=== PATIENT | female | born 1955 | race Caucasian/White ===

== ENCOUNTER → 2017-04-05 | Outpatient (CLI) | payer BC, OTHER ==
[~2017-04-05] MED LIST: ACHD5005 PO; AGM875T PO; ASPI-983 PO; CEFD300C3 PO; COLE1TAB PO; FAMO-119 PO; FEXO180T84 PO; FEXO1TAB42 PO; HYDR-3062 PO; HYDR12.56; HYDR1TAB PO; LEVO137T2 PO; LEVO137T32 PO; LISI10TA; LVT.1T; METF-380 PO; METO-370 PO; PRAV10TA PO; SERT100T8 PO; SERT25TA5 PO
== END ==
LOC: RAD 13:06
PROVIDERS: ATTEND Family Medicine
DX: Z12.31 Encounter for screening mammogram for malignant neoplasm of breast (principal)
CPT/HCPCS: 77067

== ENCOUNTER → 2017-08-16 | Outpatient (CLI) | payer OTHER ==
--- NOTE | 2017-08-16 17:05 | Diagnostic Imaging Report ---
PROCEDURE: US right lower extremity venous. TECHNIQUE: Multiple real-time grayscale images were obtained over the right lower extremity in various projections. Additional duplex Doppler and color Doppler images were also obtained. INDICATION: Right ankle edema and swelling. FINDINGS: There is normal compression flow and augmentation demonstrated from the right common femoral vein through the popliteal vein. The visualized calf veins are also patent. The peroneal vein could not be visualized. IMPRESSION: No sonographic demonstration of deep venous thrombosis. The peroneal vein could not be visualized within the calf. Dictated by: Dictated on workstation # [id number]
== END ==
LOC: RAD 16:29
PROVIDERS: ATTEND Family Medicine
DX: M25.471 Effusion, right ankle (principal)

== ENCOUNTER → 2018-02-13 | Outpatient (CLI) | payer BC ==
--- NOTE | 2018-02-13 15:14 | Diagnostic Imaging Report ---
PROCEDURE: CT head and maxillofacial without contrast. TECHNIQUE: Multiple contiguous axial images were obtained through the head and facial bones without the use of intravenous contrast. INDICATION: Fall with head and facial injury. CT HEAD: The ventricles and sulci are within normal limits. No sulcal effacement, midline shift or hemorrhage is detected. The cisterns are patent. The visualized paranasal sinuses are clear. IMPRESSION: No acute intracranial process is detected. CT MAXILLOFACIAL: The mandible is intact. The zygomatic arches are intact. Maxillary sinus hudson are intact. No displaced nasal bone fracture is seen. Orbital hudson appear to be intact. Visualized paranasal sinuses are clear. IMPRESSION: No facial bone fracture is detected. Dictated by: Dictated on workstation # [id number]
== END ==
LOC: RAD 13:52
PROVIDERS: ATTEND Nurse Practitioner Family
DX: S09.90XA Unspecified injury of head, initial encounter (principal); S05.11XA Contusion of eyeball and orbital tissues, right eye, initial encounter; R51 Headache; I10 Essential (primary) hypertension; F32.9 Major depressive disorder, single episode, unspecified; W10.1XXA Fall (on)(from) sidewalk curb, initial encounter
CPT/HCPCS: 70450; 70486

== ENCOUNTER → 2018-04-16 | Outpatient (CLI) | payer BC ==
--- NOTE | 2018-04-16 18:11 | Diagnostic Imaging Report ---
INDICATION: Routine screening. COMPARISON: Comparison is made with prior mammograms from 04/05/2017 and 04/04/2016. TECHNIQUE: 2D and 3D bilateral screening mammography was performed with 3D tomosynthesis and computer-aided detection (CAD) system. FINDINGS: Both breasts are primarily involutional. No mass or malignant-appearing microcalcifications are seen. The axillae are unremarkable. IMPRESSION: No mammographic features suspicious for malignancy are identified. ACR BI-RADS Category 1: Negative. Result letter will be mailed to the patient. Note: At least 10% of breast cancer is not imaged by mammography. Dictated by: Dictated on workstation # [id number]
== END ==
LOC: RAD 14:50
PROVIDERS: ATTEND Family Medicine
DX: Z12.31 Encounter for screening mammogram for malignant neoplasm of breast (principal)
CPT/HCPCS: 77067

== ENCOUNTER 2018-09-03 05:35 | Outpatient (CLI) | payer BC ==
[~2018-09-03] VITALS: Ht 162.6 cm; Wt 108.7 kg
[2018-09-03] MEDS ORDERED: AMLO5TAB9 PO (10:30)
[2018-09-03] MEDS ORDERED: SPIR25TA5 PO (10:30)
[2018-09-03] MEDS ORDERED: LEVO125T6 PO (10:30)
== END 2018-09-03 13:15 | disposition home or self-care (01) ==
LOC: PREOP 05:35
PROVIDERS: ATTEND Surgery
DX: Z01.818 Encounter for other preprocedural examination (principal)

== ENCOUNTER 2018-09-10 08:26 | Day surgery (SDC) | payer BC ==
[~2018-09-10] VITALS: Ht 162.6 cm; Wt 108.7 kg
[~2018-09-10 08:26] MED LIST changes: +AMLO5TAB9 PO; +LEVO125T6 PO; +SPIR25TA5 PO
[2018-09-10] MEDS ORDERED: LACTATED RINGERS 1,000 ML IV ONE (08:30)
[2018-09-10] MEDS ORDERED: LACTATED RINGERS 1,000 ML IV STA (08:46)
[2018-09-10 08:49] VITALS: BP 149/94
[2018-09-10] MEDS ORDERED: MIDAZOLAM 2 MG/2 ML (VERSED) VIAL ONE ×2 (09:18→10:11)
[2018-09-10] MEDS ORDERED: PROPOFOL INJECTION 50 ML IV ONE (09:18)
[2018-09-10 10:35] VITALS: BP 169/77
[2018-09-10 11:05] VITALS: BP_SYST 156; BP_SYST 169; BP_DIAS 77; BP_DIAS 86
--- NOTE | 2018-09-10 14:27 | Anesthesia-General Post-Op ---
MAC Patient Condition Mental Status/LOC: Same as Preop Cardiovascular: Satisfactory Nausea/Vomiting: Absent Respiratory: Satisfactory Pain: Controlled Complications: Absent Post Op Complications Complications None Follow Up Care/Instructions Patient Instructions None needed. Anesthesiology Discharge Order Discharge Order Patient is doing well, no complaints, stable vital signs, no apparent adverse anesthesia problems. No complications reported per nursing. KATHY JIN CRNA Sep 10, 2018 14:26
--- NOTE | 2018-09-10 16:50 | OPERATIVE REPORT ---
DATE OF SERVICE: 09/10/2018 PREOPERATIVE DIAGNOSIS: Screening colonoscopy. POSTOPERATIVE DIAGNOSES: Large cecal polyp near the appendiceal orifice, cecal polyp, diverticulosis and sigmoid inflammation. PROCEDURES PERFORMED: Colonoscopy with hot biopsy polypectomy x2 and cold biopsies of sigmoid colon. SURGEON: Roseanna Mariano DO. ANESTHESIA: Per AUTHORIZATION NURSE. ESTIMATED BLOOD LOSS: Scant. COMPLICATIONS: None. INDICATIONS: The patient is a 62-year-old female, due for screening colonoscopy. She understands risks and benefits of procedure and wished to proceed with procedure. Consent was signed and on the chart. DESCRIPTION OF PROCEDURE: The patient was taken to the endoscopy suite, placed in left lateral recumbent position. Timeout was performed. Digital rectal exam was performed. There were no palpable polyps, masses or ulcerations. Scope was inserted in the rectum and advanced all the way down to the cecum with minimal difficulty. Prep was adequate with irrigation and suction. Within the cecum, a larger more flat polyp was present, which hot biopsy polypectomy was performed taking a couple of biopsies and fulgurating it. The scope was then slowly retracted back. A small cecal polyp was present, which hot biopsy polypectomy was performed on it. Scope was then slowly retracted back through the ascending, transverse and descending colon without noting any other pathology. Within the sigmoid colon, moderate amount of diverticulosis was present. Towards the distal portion, there is a circumferential inflammation around it. Cold biopsies were obtained of this area. The bowel wall appears to be slightly edematous with significant inflammation. Scope was then continued to be slowly retracted back to the rectum, where it was also retroflexed noting no other pathology. Scope was returned to its normal position, slowly withdrawn until completely removed. The patient tolerated the procedure well without any complications. She was taken to recovery room in stable condition. RECOMMENDATIONS: The patient recommended a followup with pathology in 2 weeks. We would recommend repeat colonoscopy in three months for reevaluation to make sure one of the cecal polyps was eradicated and follow up on the sigmoid inflammation and await biopsy results. Job ID: [id number] DocumentID: [id number] Dictated Date: 09/10/2018 10:32:37 [place] Worker Date: 09/10/2018 16:50:14 Dictated By: ROSEANNA MARIANO DO
== END 2018-09-10 11:10 | disposition home or self-care (01) ==
LOC: ENDO 08:26
PROVIDERS: ATTEND Surgery
DX: Z12.11 Encounter for screening for malignant neoplasm of colon (principal); D12.0 Benign neoplasm of cecum; K52.9 Noninfective gastroenteritis and colitis, unspecified; K57.30 Diverticulosis of large intestine without perforation or abscess without bleeding; I10 Essential (primary) hypertension; E03.9 Hypothyroidism, unspecified; E66.01 Morbid (severe) obesity due to excess calories; Z68.41 Body mass index [BMI] 40.0-44.9, adult; Z79.899 Other long term (current) drug therapy

== ENCOUNTER 2018-10-03 10:33 | Outpatient (RCR) | payer BC | END 2019-01-01 | disposition home or self-care (01) | LOC: LAB 10:33 | PROVIDERS: ATTEND Surgery | DX: K52.9 Noninfective gastroenteritis and colitis, unspecified (principal) | CPT/HCPCS: 87015; 87045; 87046; 87324; 87328; 87329; 87449; 87899 ==

== ENCOUNTER 2019-01-28 05:48 | Outpatient (CLI) | payer MEDICARE, BC ==
[~2019-01-28] VITALS: Ht 162.6 cm; Wt 110.0 kg
[2019-01-28] MEDS ORDERED: ASPI-586 PO (10:25)
== END 2019-01-28 10:34 | disposition home or self-care (01) ==
LOC: PREOP 05:48
PROVIDERS: ATTEND Surgery
DX: Z01.818 Encounter for other preprocedural examination (principal)

== ENCOUNTER 2019-04-15 05:42 | Outpatient (CLI) | payer BC, MEDICARE ==
[~2019-04-15] VITALS: Ht 162.6 cm; Wt 110.0 kg
[~2019-04-15 05:42] MED LIST changes: +ASPI-586 PO; +CIPR-225 PO; +METR500T PO
== END 2019-04-15 10:59 | disposition home or self-care (01) ==
LOC: PREOP 05:42
PROVIDERS: ATTEND Surgery
DX: Z01.818 Encounter for other preprocedural examination (principal)

== ENCOUNTER → 2019-04-18 | Outpatient (CLI) | payer BC, MEDICARE ==
[~2019-04-18] MED LIST changes: -METO-370 PO; +METO50TA7 PO
--- NOTE | 2019-04-18 17:02 | Diagnostic Imaging Report ---
EXAMINATION: Chest (PA and lateral). CLINICAL INDICATION: 63-year-old female, cough. COMPARISON: October 28, 2015. FINDINGS: There is elevation of the right hemidiaphragm. Stable overall appearance of the cardiomediastinal silhouette. There is no identified pneumothorax. There is no pleural effusion. There is no identified focal airspace consolidation. IMPRESSION: No identified acute cardiopulmonary abnormality. Dictated by: Dictated on workstation # [id number]
--- NOTE | 2019-04-21 09:35 | Diagnostic Imaging Report ---
INDICATION: Routine screening. COMPARISON: 04/16/2018 and 04/05/2017. TECHNIQUE: 2D and 3D bilateral screening mammography was performed with CAD. FINDINGS: Both breasts are primarily involutional. The parenchymal pattern is stable. No mass or malignant appearing microcalcifications are seen. The axillae are unremarkable. IMPRESSION: No mammographic features suspicious for malignancy are identified. ACR BI-RADS Category 1: Negative. Result letter will be mailed to the patient. Note: At least 10% of breast cancer is not imaged by mammography. Dictated by: Dictated on workstation # [id number]
== END ==
LOC: RAD 15:38
PROVIDERS: ATTEND Family Medicine
DX: Z12.31 Encounter for screening mammogram for malignant neoplasm of breast (principal); R05 Cough; R09.89 Other specified symptoms and signs involving the circulatory and respiratory systems
CPT/HCPCS: 71046; 77067

== ENCOUNTER → 2020-04-19 | Outpatient (CLI) | payer MEDICARE, OTHER ==
[~2020-04-19] MED LIST changes: +AMLO-250 PO; -AMLO5TAB9 PO; +ASPI-1238 PO; -ASPI-983 PO
--- NOTE | 2020-04-19 11:41 | Diagnostic Imaging Report ---
Digital mammogram. Indication: Bilateral screening This study was compared to the prior exams of 04/18/2019, 04/16/2018 and 04/05/2017. At this time there are no current complaints. The current study was also evaluated with a Computer Aided Detection (CAD) system. FINDINGS: There is a mild amount of fibroglandular tissue present in both breasts, similar to the prior exam. No primary or secondary sign of malignancy is noted. IMPRESSION: There is no radiographic evidence for malignancy. ACR BI-RADS Category 1: Negative. Result letter will be mailed to the patient. Note: At least 10% of breast cancer is not imaged by mammography. Dictated by: Dictated on workstation # [id number]
== END ==
LOC: RAD 10:45
PROVIDERS: ATTEND Family Medicine
DX: Z12.31 Encounter for screening mammogram for malignant neoplasm of breast (principal)
CPT/HCPCS: 77063; 77067

== ENCOUNTER → 2021-04-20 | Outpatient (CLI) | payer MEDICARE, OTHER ==
[~2021-04-20] MED LIST changes: +SERT-414 PO; -SERT100T8 PO
--- NOTE | 2021-04-20 17:06 | Diagnostic Imaging Report ---
INDICATION: Routine screening. Comparison is made with prior mammogram 04/19/2020 and 04/18/2019. 2-D and 3-D bilateral screening mammography was performed with CAD. Both breasts are primarily involutional. No mass or malignant-appearing microcalcifications are seen. Axillae are unremarkable. IMPRESSION: No mammographic features suspicious for malignancy are identified. BI-RADS Category 1 ACR BI-RADS Category 1: Negative. Result letter will be mailed to the patient. Note: At least 10% of breast cancer is not imaged by mammography. Dictated by: Dictated on workstation # [id number]
== END ==
LOC: RAD 14:45
PROVIDERS: ATTEND Family Medicine
DX: Z12.31 Encounter for screening mammogram for malignant neoplasm of breast (principal)
CPT/HCPCS: 77063; 77067

== ENCOUNTER → 2022-04-21 | Outpatient (CLI) | payer MEDICARE, OTHER ==
--- NOTE | 2022-04-21 18:29 | Diagnostic Imaging Report ---
INDICATION: Routine screening. COMPARISON: Prior mammograms from 04/20/2021 and 04/19/2020. EXAMINATION: 2D and 3D bilateral screening mammography was performed with CAD. The current study was also evaluated with a Computer Aided Detection (CAD) system. FINDINGS: Both breasts are primarily involutional. The parenchymal pattern is stable. No mass or malignant appearing microcalcifications are seen. Axillae are unremarkable. IMPRESSION: No mammographic features suspicious for malignancy are identified. ACR BI-RADS Category 1: Negative. Result letter will be mailed to the patient. Note: At least 10% of breast cancer is not imaged by mammography. Dictated by: Dictated on workstation # [id number]
== END ==
LOC: RAD 14:37
PROVIDERS: ATTEND Nurse Practitioner Family
DX: Z12.31 Encounter for screening mammogram for malignant neoplasm of breast (principal)
CPT/HCPCS: 77063; 77067

== ENCOUNTER 2022-05-25 05:36 | Outpatient (CLI) | payer MEDICARE, OTHER ==
[~2022-05-25] VITALS: Ht 163.8 cm; Wt 104.1 kg
== END 2022-05-25 14:21 | disposition home or self-care (01) ==
LOC: PREOP 05:36
PROVIDERS: ATTEND Surgery
DX: Z01.818 Encounter for other preprocedural examination (principal)

== ENCOUNTER 2022-06-01 08:46 | Inpatient (IN) | payer MEDICARE, OTHER ==
[2022-06-01] VITALS (13 sets, daily range): BP systolic 122–178; BP diastolic 59–94
[~2022-06-01] VITALS: Ht 163.8 cm; Wt 104.1 kg
--- OUTSIDE RECORDS SUMMARY | 2022-06-01 08:51 | XMS REPORT | CCD ---
Author Author Mignon De La Paz D.O. Organization [facility] Address [address] [place] [phone] Phone Care Team Providers Care [employer] Name Role Phone Dory De La Paz D.O., PP Unavailable CCM Unavailable Summary Purpose Interface Exchange Insurance Providers Payer name Policy type / Coverage type Covered alliance party ID Effective Begin Date Effective End Date WPS MEDICARE PART B [place] Blue Cross/Blue Shield [id number] 2019 1000 Unknown [employer] Blue Cross/Blue Shield [id number] Un known Family History Family History data not found Social History Social History Element Codes Description Effective Dates Tobacco history SNOMED CT: 560211007 Never smoker 02/08/2011 Allergies, Adverse Reactions, Alerts Substance Reaction Codes Entered Date Inactivated Date Status * NO KNOWN FOOD ALLERGIES Unknown 08/09/2009 No Inactiv e Date Active _ Unknown 08/09/2009 No Inactive Date Active * NO KNOWN ENVIRONMENTAL ALLERGIES Unknown 08/09/2009 N o Inactive Date Active Problems Condition Codes Effective Dates Condition Status Influenza B ICD-10: J10.1 ICD-9: 487.1 02/06/2022 Active URI, ACUTE ICD-10: J06.9 ICD-9: 465.9 01/06/2019 Active Colitis ICD-10: K52.9 ICD-9: 558.9 04/08/2019 Active Inflamed seborrheic keratosis ICD-10: L82.0 ICD-9: 702.11 09/20/2020 Active Proctitis ICD-10: K62.89 ICD-9: 569.49 10/03/2021 Active Essential (primary) hypertension ICD-10: I10 ICD-9: 401.9 09/04/2017 Active Osteoarthritis of knees, bilateral ICD-10: M17.0 ICD-9: 715.96 06/06/2021 Active Edema ICD-10: R60.9 ICD-9: 782.3 06/06/2021 Active Rectal bleeding ICD-10: K62.5 ICD-9: 569.3 06/06/2021 Active Acute sinusitis ICD-10: J01.90 ICD-9: 461.9 03/29/2021 Active Contact with and (suspected) exposure to covid-19 ICD- 10: Z20.822 ICD-9: V01.79 03/28/2021 Active Encounter for immunization ICD-10: Z23 ICD-9: V03.89 01/14/2020 Active Hypothyroidism, unspecified ICD-10: E03.9 ICD-9: 244.9 07/31/2013 Active Hyperglycemia, unspecified ICD-10: R73.9 ICD-9: 790.29 06/10/2018 Active Cough ICD-10: R05 ICD-9: 786.2 01/06/2019 Active Contact with and (suspected) exposure to potentially h azardous body fluids ICD- 10: Z77.21 ICD-9: V15.85 06/10/2018 Active Localized edema ICD-10: R60.0 ICD-9: 782.3 08/16/2017 Active Other fatigue ICD-10: R53.83 ICD-9: 780.79 06/10/2018 Active Encounter for screening for lipoid disorders ICD-10: Z 13.220 ICD-9: V77.91 05/29/2018 Active Encounter for screening mammogram for malignant neopla sm of breast ICD-10: Z12.31 ICD-9: V76.12 03/09/2014 Active Encounter for general adult medical examination withou t abnormal findings ICD- 10: Z00.00 ICD-9: V70.9 09/04/2017 Active Pain in right knee ICD-10: M25.561 ICD-9: 719.46 08/09/2015 Active Abnormal levels of other serum enzymes ICD-10: R74.8 ICD-9: 790.5 06/08/2016 Active Nonscarring hair loss, unspecified ICD-10: L65.9 ICD-9: 704.00 02/02/2016 Active Dehydration ICD-10: E86.0 ICD-9: 276.51 10/27/2015 Active Fever, unspecified ICD-10: R50.9 ICD-9: 780.60 10/27/2015 Active Urticaria, unspecified ICD-10: L50.9 ICD-9: 708.9 08/15/2013 Active Diarrhea, unspecified ICD-10: R19.7 ICD-9: 787.91 09/18/2012 Active Tinea cruris ICD-10: B35.6 ICD-9: 110.3 08/09/2015 Active CELLULITIS ICD-9: 682.9 12/30/2014 Active FOLLICULITIS ICD-9: 704.8 12/30/2014 Active Elevated liver enzymes ICD-9: 790.5 06/25/2014 Active ROUTINE MEDICAL EXAM ICD-9: V70.0 06/25/2014 Active OTH SCREENING MAMMOGRAM ICD-9: V76.12 03/09/2014 Active SINUSITIS, ACUTE ICD-9: 461.9 02/05/2014 Active Periorbital edema ICD-9: 782.3 02/04/2014 Active PNEUMONIA, ORGANISM ICD-9: 486 02/04/2014 Active COUGH ICD-9: 786.2 08/15/2013 Active URTICARIA ICD-9: 708.9 08/15/2013 Active Changing skin lesion ICD-9: 709.9 07/31/2013 Active DM W/O COMPLICATION TYPE II ICD-9: 250.00 07/31/2013 Acti ve HYPERTENSION ICD-9: 401.9 07/31/2013 Active HYPOTHYROIDISM ICD-9: 244.9 07/31/2013 Active Skin tag ICD-9: 701.9 07/31/2013 Active ABDOMINAL PAIN ICD-9: 789.00 09/18/2012 Active Diarrhea ICD-9: 787.91 09/18/2012 Active Chest pain ICD-9: 786.50 09/13/2012 Active DERMATITIS NOS ICD-9: 692.9 06/06/2012 Active BRONCHITIS, ACUTE ICD-9: 466.0 03/06/2012 Active ARTHRALGIA-MULTIPLE SITES ICD-9: 719.49 01/08/2012 Active Myalgia ICD-9: 729.1 01/08/2012 Active Diverticular disease Unknown 08/09/2009 Active Hypertension Unknown 08/09/2009 Active Hypothryroidism Unknown 08/09/2009 Active Irritable bowel syndrome Unknown 08/09/2009 Active Urticaria Unknown 08/09/2009 Active MALAISE AND FATIGUE ICD-9: 780.79 08/09/2009 Active Medications Medication Codes Instructions Start Date Stop Date Status Fill Instructions Tamiflu 75 mg capsule RxNorm: 134727 Take 1 Capsule(s) Oral two times a day 04/10/2022 04/14/2022 Active spironolactone 100 mg tablet RxNorm: 415041 TAKE 1 TABL ET BY MOUTH EVERY MORNING. REPLACES 25 MG DOSE 03/09/2022 09/04/2022 Active levothyroxine 125 mcg tablet RxNorm: 394032 Take 1 Tablet(s) Oral Q D 03/09/2022 06/06/2022 Active albuterol sulfate 2.5 mg/3 mL (0.083 %) solution for n ebulization RxNorm: 463520 Take 1 Unit Dose Inhalation Q4H as needed 02/06/2022 No Stop Date Active Zithromax Z-Mian 250 mg tablet RxNorm: 245067 Take 2 Tab let(s) Oral QD then 1 daily 02/06/2022 02/10/2022 Inactive Tamiflu 75 mg capsule RxNorm: 218014 Take 1 Capsule(s) Oral two times a day 02/06/2022 02/10/2022 Inactive sertraline 100 mg tablet RxNorm: 586812 Take 1 Tablet(s) Oral QD 06/10/2022 Active amlodipine 5 mg tablet RxNorm: 834633 Take 1 Tablet(s) Oral QD 09/202106/10/2022 Active levothyroxine 125 mcg tablet RxNorm: 598124 Take 1 Tablet(s) Oral Q D 12/12/2021 12/12/2021 Inactive levothyroxine 137 mcg tablet RxNorm: 314352 Take 1 Tablet(s) Oral Q D 09/14/2021 12/12/2021 Inactive spironolactone 100 mg tablet RxNorm: 494086 TAKE 1 TABL ET BY MOUTH EVERY MORNING. REPLACES 25 MG DOSE 09/14/2021 09/14/2021 Inactive spironolactone 100 mg tablet RxNorm: 646626 TAKE 1 TABL ET BY MOUTH EVERY MORNING. REPLACES 25 MG DOSE 09/12/2021 09/12/2021 Inactive levothyroxine 125 mcg tablet RxNorm: 081181 Take 1 Tablet(s) Oral Q D 09/06/2021 09/06/2021 Inactive Patient requests 90 days s upply levothyroxine 125 mcg tablet RxNorm: 560171 Take 1 Tablet(s) Oral Q D 09/05/2021 09/05/2021 Inactive levothyroxine 125 mcg tablet RxNorm: 793940 1 Tablet(s) Oral QD 08/05/2021 Inactive levothyroxine 125 mcg tablet RxNorm: 842817 Take 1 Tablet(s) Oral Q D 08/05/2021 12/11/2021 Inactive Vitamin D3 50 mcg (2,000 unit) capsule RxNorm: 599800 1 Capsule (s) Oral QD 06/20/2021 No Stop Date Active amlodipine 5 mg tablet RxNorm: 299119 Take 1 Tablet(s) Oral QD 06/0706/20/2021 Inactive sertraline 100 mg tablet RxNorm: 778972 Take 1 tablet by mouth once daily 06/20/2021 06/20/2021 Inactive spironolactone 25 mg tablet RxNorm: 030978 1 Tablet(s) Oral two times a day 06/20/2021 06/20/2021 Inactive spironolactone 100 mg tablet RxNorm: 498289 Take 1 Tabl et(s) Oral QAM replaces 25mg dose 06/20/2021 06/20/2021 Inactive levothyroxine 137 mcg tablet RxNorm: 872800 Take 1 Tablet(s) Oral Q D 06/20/2021 08/04/2021 Inactive prednisone 20 mg tablet RxNorm: 398459 Take 1 Tablet(s) Oral two times a day for 1 week then 1 po daily until fwup 06/06/2021 06/19/2021 Inactive albuterol sulfate 1.25 mg/3 mL solution for nebulization RxN orm: 531821 3 Milliliter(s) Inhalation Q4H as needed 03/25/2021 03/25/2021 Inactive spironolactone 25 mg tablet RxNorm: 285792 TAKE 1 TABLE T BY MOUTH IN THE MORNING 01/06/2021 06/19/2021 Inactive sertraline 100 mg tablet RxNorm: 362726 Take 1 tablet by mouth once daily 01/06/2021 04/05/2021 Inactive levothyroxine 137 mcg tablet RxNorm: 327651 Take 1 Tablet(s) Oral Q D 01/06/2021 04/05/2021 Inactive amlodipine 5 mg tablet RxNorm: 915375 Take 1 Tablet(s) Oral QD 12/1004/05/2021 Inactive levothyroxine 137 mcg tablet RxNorm: 772181 Take 1 Tablet(s) Oral Q D 01/06/2021 06/05/2021 Inactive levothyroxine 137 mcg tablet RxNorm: 589902 Take 1 Tablet(s) Oral Q D 10/25/2020 01/05/2021 Inactive spironolactone 25 mg tablet RxNorm: 472754 TAKE 1 TABLE T BY MOUTH IN THE MORNING 10/11/2020 10/11/2020 Inactive amlodipine 5 mg tablet RxNorm: 398085 Take 1 Tablet(s) Oral QD 08/202010/11/2020 Inactive sertraline 100 mg tablet RxNorm: 902684 Take 1 tablet by mouth once daily 10/04/2020 10/04/2020 Inactive levothyroxine 137 mcg tablet RxNorm: 386085 1 Tablet(s) Oral QD 07/27/2020 Inactive levothyroxine 137 mcg tablet RxNorm: 061207 1 Tablet(s) Oral QD 07/26/2020 Inactive spironolactone 25 mg tablet RxNorm: 981380 TAKE 1 TABLE T BY MOUTH IN THE MORNING 07/04/2020 07/04/2020 Inactive Zoloft 100 mg tablet RxNorm: 802974 Take 1 tablet by mouth once daily 07/04/2020 07/04/2020 Inactive levothyroxine 125 mcg tablet RxNorm: 461354 1 Tablet(s) Oral QD 04/25/2020 Inactive levothyroxine 125 mcg tablet RxNorm: 154527 1 Tablet(s) Oral QD Replaces Synthroid 04/26/2020 07/25/2020 Inactive amlodipine 5 mg tablet RxNorm: 950278 TAKE 1 TABLET BY MOUTH ON CE DAILY Oral 04/19/2020 04/19/2020 Inactive Zoloft 100 mg tablet RxNorm: 833058 Take 1 tablet by mouth once daily 04/05/2020 07/03/2020 Inactive spironolactone 25 mg tablet RxNorm: 434194 TAKE 1 TABLE T BY MOUTH IN THE MORNING 04/05/2020 07/03/2020 Inactive mesalamine 1.2 gram tablet,delayed release RxNorm: 698980 2 Tab let(s) Oral QD 01/05/2020 04/13/2020 Inactive amlodipine 5 mg tablet RxNorm: 459291 TAKE 1 TABLET BY MOUTH ON CE DAILY 10/20/2019 04/18/2020 Inactive spironolactone 25 mg tablet RxNorm: 616404 1 Tablet(s) Oral QAM 04/02/2020 Inactive colestipol 1 gram tablet RxNorm: 3620238 1 Tablet(s) Oral QD 201906/05/2021 Inactive Zoloft 100 mg tablet RxNorm: 349826 1 Tablet(s) Oral QD 10/01/2019 Inactive amlodipine 5 mg tablet RxNorm: 379640 TAKE 1 TABLET BY MOUTH ON CE DAILY 04/21/2019 10/19/2019 Inactive Synthroid 125 mcg tablet RxNorm: 071131 1 Tablet(s) Oral QD DAW1 04/25/2020 Inactive spironolactone 25 mg tablet RxNorm: 353176 1 Tablet(s) Oral QAM 10/05/2019 Inactive spironolactone 50 mg tablet RxNorm: 452270 TAKE 1 TABLE T BY MOUTH ONCE DAILY IN THE MORNING 03/30/2019 04/07/2019 Inactive prednisone 10 mg tablet RxNorm: 581650 1 Tablet(s) Oral two brie es a day 01/06/2019 01/09/2019 Inactive albuterol sulfate 1.25 mg/3 mL solution for nebulization RxN orm: 637275 3 Milliliter(s) Inhalation Q4H as needed 01/06/2019 09/19/2020 Inactive Tessalon Perles 100 mg capsule RxNorm: 331393 1 Capsule(s) Oral Q8H as needed 01/06/2019 04/07/2019 Inactive spironolactone 50 mg tablet RxNorm: 948005 TAKE 1 TABLE T BY MOUTH ONCE DAILY IN THE MORNING 12/23/2018 03/29/2019 Inactive spironolactone 50 mg tablet RxNorm: 703206 1 Tablet(s) PO QAM 09/1912/17/2018 Inactive Synthroid 125 mcg tablet RxNorm: 555058 1 Tablet(s) PO QD DAW09/201803/10/2019 Inactive Zoloft 100 mg tablet RxNorm: 563177 1 Tablet(s) PO QD 09/11/201804/2018 Inactive Synthroid 125 mcg tablet RxNorm: 267518 1 Tablet(s) PO QD DAW08/0709/11/2018 Inactive spironolactone 50 mg tablet RxNorm: 149694 1 Tablet(s) PO QAM 07/1009/07/2018 Inactive Synthroid 125 mcg tablet RxNorm: 557764 1 Tablet(s) PO QD 04/201808/18/2018 Inactive oseltamivir 75 mg capsule RxNorm: 730256 1 Capsule(s) PO QD 019 06/19/2018 Inactive spironolactone 50 mg tablet RxNorm: 162161 1 Tablet(s) PO QAM 06/1007/09/2018 Inactive amlodipine 5 mg tablet RxNorm: 076527 1 Tablet(s) PO QD 06/10/2018 Inactive Synthroid 125 mcg tablet RxNorm: 139257 1 Tablet(s) PO QD 07/201807/07/2018 Inactive Synthroid 125 mcg tablet RxNorm: 161000 1 Tablet(s) PO QD 05/1106/09/2018 Inactive Zoloft 100 mg tablet RxNorm: 354136 TAKE 1 TABLET BY MOUTH ONCE DAILY 05/30/2018 04/07/2019 Inactive Zoloft 100 mg tablet RxNorm: 542091 1 Tablet(s) PO QD 05/29/201808/08 Inactive Zoloft 100 mg tablet RxNorm: 966370 TAKE 1 TABLET BY MOUTH ONCE DAILY 02/20/2018 05/28/2018 Inactive potassium chloride ER 20 mEq tablet,extended release RxNorm: 183719 1 Tablet(s) PO TID 11/26/2017 06/09/2018 Inactive potassium chloride ER 20 mEq tablet,extended release RxNorm: 249583 1 Tablet(s) PO QD 11/19/2017 11/25/2017 Inactive Synthroid 125 mcg tablet RxNorm: 687972 1 Tablet(s) PO QD DAW1 10/0704/14/2018 Inactive potassium chloride ER 20 mEq tablet,extended release RxNorm: 659431 1 Tablet(s) PO QD 10/17/2017 10/16/2017 Inactive potassium chloride ER 20 mEq tablet,extended release RxNorm: 435127 1 Tablet(s) PO QD 10/17/2017 11/15/2017 Inactive Synthroid 125 mcg tablet RxNorm: 370380 1 Tablet(s) PO QD DAW NEEDS UPDATED LABS 10/01/2017 10/14/2017 Inactive hydrochlorothiazide 25 mg tablet RxNorm: 510002 1 Table t(s) PO QD replaces lasix and potassium 09/04/2017 06/09/2018 Inactive Toprol XL 50 mg tablet,extended release RxNorm: 348223 1 Tablet (s) PO QD 08/23/2017 06/09/2018 Inactive Synthroid 125 mcg tablet RxNorm: 685091 1 Tablet(s) PO QD DAW1 NEEDS UPDATED LABS 08/23/2017 10/01/2017 Inactive Zoloft 100 mg tablet RxNorm: 838645 1 Tablet(s) PO QD 08/20/201712/2017 Inactive Lasix 40 mg tablet RxNorm: 003727 1 Tablet(s) PO QAM 08/16/201709/03 Inactive potassium chloride ER 20 mEq tablet,extended release RxNorm: 881679 1 Tablet(s) PO QD 08/16/2017 09/03/2017 Inactive Toprol XL 50 mg tablet,extended release RxNorm: 237849 Tablet(s) TAKE ONE TABLET BY MOUTH ONCE DAILY 07/30/2017 08/23/2017 Inactive Toprol XL 50 mg tablet,extended release RxNorm: 755800 TAKE ONE TABLET BY MOUTH ONCE DAILY 06/28/2017 07/30/2017 Inactive Synthroid 125 mcg tablet RxNorm: 748733 1 Tablet(s) PO QD DAW1 05/1008/23/2017 Inactive Synthroid 125 mcg tablet RxNorm: 409974 1 Tablet(s) PO QD DAW04/0905/23/2017 Inactive Synthroid 125 mcg tablet RxNorm: 413309 1 Tablet(s) PO QD DAW08/201604/23/2017 Inactive Toprol XL 50 mg tablet,extended release RxNorm: 347731 1 Tablet (s) PO QD 03/12/2017 06/09/2017 Inactive levothyroxine 125 mcg tablet RxNorm: 069059 1 Tablet(s) PO QD P lease get labs 03/05/2017 03/12/2017 Inactive cancel any refills o n any other strengths Zoloft 100 mg tablet RxNorm: 592038 1 Tablet(s) PO QD 02/05/201707/09 Inactive levothyroxine 125 mcg tablet RxNorm: 046198 1 Tablet(s) PO QD 12/2512/24/2016 Inactive cancel any refills on any ot her strengths levothyroxine 125 mcg tablet RxNorm: 683994 1 Tablet(s) PO QD 12/2503/05/2017 Inactive cancel any refills on any ot her strengths Toprol XL 50 mg tablet,extended release RxNorm: 221976 1 Tablet (s) PO QD 12/05/2016 03/12/2017 Inactive levothyroxine 137 mcg tablet RxNorm: 953011 1 Tablet(s) PO QD 10/1610/15/2016 Inactive levothyroxine 137 mcg tablet RxNorm: 653670 1 Tablet(s) PO QD 10/1612/24/2016 Inactive levothyroxine 150 mcg tablet RxNorm: 790954 1 Tablet(s) PO QD Due for repeat labs 09/06/2016 06/09/2018 Inactive Toprol XL 50 mg tablet,extended release RxNorm: 776261 1 Tablet (s) PO QD 08/29/2016 11/26/2016 Inactive levothyroxine 150 mcg capsule RxNorm: 682158 1 Capsule(s) PO QD 10/15/2016 Inactive Toprol XL 50 mg tablet,extended release RxNorm: 078961 1 Tablet (s) PO QD 05/25/2016 08/29/2016 Inactive levothyroxine 137 mcg tablet RxNorm: 492783 1 Tablet(s) PO QD 05/0507/04/2016 Inactive replaces brand Synthroid 137 mcg Zoloft 100 mg tablet RxNorm: 719462 1 Tablet(s) PO QD 03/21/201601/09 Inactive levothyroxine 137 mcg tablet RxNorm: 031221 1 Tablet(s) PO QD 02/2302/23/2016 Inactive levothyroxine 137 mcg tablet RxNorm: 627657 1 Tablet(s) PO QD 02/2304/23/2016 Inactive replaces brand Synthroid 137 mcg Synthroid 137 mcg tablet RxNorm: 534939 1 Tablet(s) PO QD DAW1- -brand only 02/14/2016 02/23/2016 Inactive Toprol XL 50 mg tablet,extended release RxNorm: 649225 1 Tablet (s) PO QD 02/03/2016 05/02/2016 Inactive Synthroid 137 mcg tablet RxNorm: 105911 1 Tablet(s) PO QD DAW1- -brand only 01/13/2016 02/13/2016 Inactive Zoloft 100 mg tablet RxNorm: 853172 1 Tablet(s) PO QD 12/07/201503/09 Inactive Synthroid 137 mcg tablet RxNorm: 117943 1 Tablet(s) PO QD DAW1- -brand only 11/24/2015 12/23/2015 Inactive Toprol XL 50 mg tablet,extended release RxNorm: 873874 1 Tablet (s) PO QD 10/26/2015 01/23/2016 Inactive Synthroid 137 mcg tablet RxNorm: 970254 1 Tablet(s) PO QD DAW1- -brand only 10/26/2015 11/23/2015 Inactive levothyroxine 137 mcg tablet RxNorm: 178797 1 Tablet(s) PO QD DAW1-Brand Name only 10/26/2015 11/23/2015 Inactive ketoconazole 200 mg tablet RxNorm: 633153 1 Tablet(s) PO QD 016 08/23/2015 Inactive colestipol 1 gram tablet RxNorm: 6526833 1 Tablet(s) PO BID 016 09/08/2015 Inactive nystatin 100,000 unit/gram topical cream RxNorm: 978376 Application TOP BID to rash 08/10/2015 08/09/2016 Inactive levothyroxine 137 mcg tablet RxNorm: 908914 1 Tablet(s) PO QD 07/1910/25/2015 Inactive Toprol XL 50 mg tablet,extended release RxNorm: 757556 1 Tablet (s) PO QD 07/15/2015 10/26/2015 Inactive Zoloft 100 mg tablet RxNorm: 653805 1 Tablet(s) PO QD 05/07/201510/08 Inactive levothyroxine 137 mcg tablet RxNorm: 126354 1 Tablet(s) PO QD 04/0807/19/2015 Inactive prednisone 20 mg tablet RxNorm: 924129 1 Tablet(s) PO BID 01/07/2015 01/06/2015 Inactive prednisone 20 mg tablet RxNorm: 303615 1 Tablet(s) PO BID 01/07/2015 01/13/2015 Inactive Bactroban 2 % topical ointment RxNorm: 473945 Application TOP BID 0 12/31/2014 08/09/2015 Inactive levothyroxine 137 mcg tablet RxNorm: 305496 1 Tablet(s) PO QD 12/3104/08/2015 Inactive Bactrim DS 800 mg-160 mg tablet RxNorm: 033923 1 Tablet(s) PO BID 0 12/31/2014 01/13/2015 Inactive Toprol XL 50 mg tablet,extended release RxNorm: 081326 1 Tablet (s) PO QD 12/11/2014 07/15/2015 Inactive Toprol XL 50 mg tablet,extended release RxNorm: 967261 1 Tablet (s) PO QD 09/01/2014 11/29/2014 Inactive levothyroxine 150 mcg tablet RxNorm: 982086 1 Tablet(s) PO QD 08/0412/30/2014 Inactive levothyroxine 175 mcg tablet RxNorm: 740680 1 Tablet(s) PO QD 07/2412/30/2014 Inactive EpiPen 2-Mian 0.3 mg/0.3 mL (1:1,000) injection,auto-injector RxNorm: 992664 1 Unit Dose IM as needed for severe anaphylactic reaction 06/25/201406/2016 Inactive Toprol XL 50 mg tablet,extended release RxNorm: 870708 1 Tablet (s) PO QD 05/18/2014 09/01/2014 Inactive levothyroxine 150 mcg tablet RxNorm: 882090 1 Tablet(s) PO QD 03/2606/23/2014 Inactive levothyroxine 150 mcg capsule RxNorm: 007526 1 Capsule(s) PO QD 07/201303/25/2014 Inactive levothyroxine 150 mcg capsule RxNorm: 188917 1 Capsule(s) PO QD 07/201303/11/2014 Inactive Zoloft 100 mg tablet RxNorm: 313882 1 Tablet(s) PO QD 03/09/201404/10 Inactive Zoloft 100 mg tablet RxNorm: 382753 1 Tablet(s) PO QD 03/09/201402/09 Inactive prednisone 20 mg tablet RxNorm: 409206 1 Tablet(s) PO BID 02/05/2014 02/09/2014 Inactive doxycycline hyclate 100 mg capsule RxNorm: 841589 1 Capsule(s) PO BID 02/05/2014 02/14/2014 Inactive cefuroxime axetil 500 mg tablet RxNorm: 589379 1 Tablet(s) PO BID 0 11/27/2013 12/06/2013 Inactive Toprol XL 50 mg tablet,extended release RxNorm: 264612 1 Tablet (s) PO QD 11/27/2013 05/18/2014 Inactive Zoloft 100 mg tablet RxNorm: 625333 1 Tablet(s) PO QD 10/27/201304/2013 Inactive hydrochlorothiazide 25 mg tablet RxNorm: 484286 1 Tablet(s) PO QD 0 09/10/2013 06/24/2014 Inactive Bystolic 5 mg tablet RxNorm: 441992 1 Tablet(s) PO QD 09/10/201310/08 Inactive levothyroxine 137 mcg tablet RxNorm: 674808 1 Tablet(s) PO QD 08/2812/28/2013 Inactive hydrochlorothiazide 25 mg tablet RxNorm: 395797 1 Tablet(s) PO QD 0 08/15/2013 09/09/2013 Inactive pravastatin 40 mg tablet RxNorm: 200462 1 Tablet(s) PO QD 07/31/2013 06/24/2014 Inactive levothyroxine 137 mcg tablet RxNorm: 103913 1 Tablet(s) PO QD Needs updated thyroid labs 06/27/2013 07/26/2013 Inactive levothyroxine 137 mcg tablet RxNorm: 288002 1 Tablet(s) PO QD Needs updated thyroid labs 05/06/2013 06/04/2013 Inactive Zoloft 100 mg tablet RxNorm: 819442 1 Tablet(s) PO QD 04/10/201309/09 Inactive levothyroxine 137 mcg tablet RxNorm: 864251 1 Tablet(s) PO QD 02/0605/06/2013 Inactive levothyroxine 137 mcg tablet RxNorm: 436467 1 Tablet(s) PO QD 11/1901/17/2013 Inactive Levothroid 137 mcg tablet RxNorm: 496377 1 Tablet(s) PO QD 11/20/19 13 11/19/2012 Inactive Zoloft 100 mg tablet RxNorm: 917951 1 Tablet(s) PO QD 09/25/201203/09 Inactive Culturelle 10 billion cell capsule RxNorm: 740740 1 Cap fadia(s) PO BID while experincing diarrhea 09/18/2012 09/24/2012 Inactive Zoloft 100 mg tablet RxNorm: 721196 1 Tablet(s) PO QD 06/24/201209/07 Inactive lisinopril-hydrochlorothiazide 10 mg-12.5 mg tablet RxNorm: 471214 1 Tablet(s) PO QD 06/24/2012 08/14/2013 Inactive allopurinol 100 mg tablet RxNorm: 553731 1 Tablet(s) PO QD 06/25/19 13 07/30/2013 Inactive metformin ER 500 mg tablet,extended release 24 hr RxNorm: 86 0975 1 Tablet(s) PO QD for BS 05/07/2012 07/30/2013 Inactive allopurinol 100 mg tablet RxNorm: 319650 1 Tablet(s) PO QD 04/16/19 13 06/14/2012 Inactive Zoloft 100 mg tablet RxNorm: 516517 1 Tablet(s) PO QD 03/20/201203/09 Inactive Zoloft 100 mg tablet RxNorm: 463240 1 Tablet(s) PO QD 03/20/201206/07 Inactive doxycycline hyclate 100 mg capsule RxNorm: 7850777 1 Capsule(s) PO BID 03/06/2012 03/15/2012 Inactive doxycycline hyclate 100 mg capsule RxNorm: 4278429 1 Capsule(s) PO BID 03/06/2012 03/05/2012 Inactive Zoloft 50 mg tablet RxNorm: 498984 1 Tablet(s) PO QD 02/05/201203/19 Inactive Celebrex 200 mg capsule RxNorm: 179687 1 Capsule(s) PO BID for pain--replaces naproxen 02/05/2012 03/05/2012 Inactive metformin ER 500 mg tablet,extended release 24 hr RxNorm: 86 0977 1 Tablet(s) PO QD for BS 02/05/2012 05/07/2012 Inactive allopurinol 100 mg tablet RxNorm: 435951 1 Tablet(s) PO QD 02/05/2004/16/2012 Inactive allopurinol 100 mg tablet RxNorm: 157444 1 Tablet(s) PO QD 01/10/2001/09/2012 Inactive allopurinol 100 mg tablet RxNorm: 813958 1 Tablet(s) PO QD 01/10/2002/04/2012 Inactive levothyroxine 137 mcg tablet RxNorm: 002436 1 Tablet(s) PO QD 01/0902/04/2012 Inactive levothyroxine 137 mcg tablet RxNorm: 036973 1 Tablet(s) PO QD 01/0901/09/2012 Inactive Celebrex 200 mg capsule RxNorm: 169511 1 Capsule(s) PO BID for pain--replaces naproxen 01/08/2012 02/04/2012 Inactive lisinopril-hydrochlorothiazide 10 mg-12.5 mg tablet RxNorm: 067591 1 Tablet(s) PO QD 12/14/2011 06/10/2012 Inactive levothyroxine 125 mcg Tab RxNorm: 758263 1 Tablet(s) PO QD 11/21/1911/20/2011 Inactive levothyroxine 125 mcg Tab RxNorm: 714972 1 Tablet(s) PO QD 11/21/1901/09/2012 Inactive lisinopril-hydrochlorothiazide 10 mg-12.5 mg tablet RxNorm: 928110 1 Tablet(s) PO QD 06/14/2011 12/10/2011 Inactive levothyroxine 112 mcg Tab RxNorm: 362250 1 Tablet(s) PO QAM 011 11/20/2011 Inactive lisinopril-hydrochlorothiazide 10 mg-12.5 mg Tab RxNorm: 197 885 1 Tablet(s) PO QD 09/12/2010 06/14/2011 Inactive levothyroxine 112 mcg Tab RxNorm: 943390 1 Tablet(s) PO QAM 011 02/07/2011 Inactive Zoloft 50 mg Tab RxNorm: 605656 1 Tablet(s) PO QD 05/24/2010 11/20/19 11 Inactive levothyroxine 112 mcg Cap RxNorm: 369649 1 Capsule(s) PO 04/26/2010 0 05/23/2010 Inactive levothyroxine 100 mcg Tab RxNorm: 177639 1 Tablet(s) PO QD 04/25/19 11 04/25/2010 Inactive lisinopril-hydrochlorothiazide 10 mg-12.5 mg Tab RxNorm: 197 885 1 Tablet(s) PO QD 12/06/2009 09/01/2010 Inactive levothyroxine 100 mcg Tab RxNorm: 852129 1 Tablet(s) PO QD 10/26/19 10 04/22/2010 Inactive Vitamin D3 1,000 unit capsule RxNorm: 134903 1 Capsule(s) PO QD 06/24/2014 Inactive levothyroxine 112 mcg Tab RxNorm: 772385 1 Tablet(s) PO QAM 011 05/23/2010 Inactive triamcinolone acetonide 0.1 % Topical Cream RxNorm: 4871407 Appl ication [facility] 07/31/2013 07/30/2013 Inactive colestipol 1 gram tablet RxNorm: 5949644 1 Tablet(s) PO BID 017 08/09/2016 Inactive Zoloft 50 mg tablet RxNorm: 990485 1 Tablet(s) PO QD 02/05/201202/03 Inactive levothyroxine 150 mcg capsule RxNorm: 603389 1 Capsule(s) PO QD 07/04/2016 Inactive Vitamin C ER 1,000 mg tablet,extended release RxNorm: 504569 1 Tablet(s) PO QD 08/10/2015 08/09/2015 Inactive levothyroxine 150 mcg capsule RxNorm: 142335 1 Capsule(s) PO QD 07/201303/11/2014 Inactive Levothyroxine 100 mcg Tab RxNorm: 409589 1 Tablet(s) PO QD 10/26/19 10 10/24/2009 Inactive Synthroid 125 mcg tablet RxNorm: 506902 1 Tablet(s) PO QD 08/201603/12/2017 Inactive Fish Oil 1,000 mg capsule RxNorm: 1 Capsule(s) PO QD 06/25/2014 Inactive FreeStyle Test strips RxNorm: Miscellaneous QD 06/25/2014 06/24/2014 Inactive Sharon Allergy 180 mg tablet RxNorm: 625869 1 Tablet(s) PO QD 08/0708/15/2017 Inactive vitamin E (dl, acetate) 400 unit capsule RxNorm: 507196 1 Capsu le(s) PO QD 08/10/2015 08/09/2015 Inactive metformin 500 mg tablet RxNorm: 348005 1 Tablet(s) PO QD 06/25/2014 0 06/24/2014 Inactive naproxen 500 mg tablet RxNorm: 543879 1 Tablet(s) PO BID as nee ded for pain 01/08/2012 01/07/2012 Inactive ursodiol 300 mg capsule RxNorm: 290769 2 Capsule(s) PO QAM and 3 capsules in the evening (Dr Higgins) 08/10/2016 08/09/2016 Inactive Vitamin B12 1000mcg Tablet RxNorm: 1 Tablet(s) PO QD 05/24/2010 Inactive Toprol XL 50 mg tablet,extended release RxNorm: 202423 1 Tablet (s) PO QD 11/27/2013 11/26/2013 Inactive Calcium with Vitamin D 600 mg (1,500 mg)-400 unit tablet RxN orm: 362332 1 Tablet(s) PO QD 07/31/2013 07/30/2013 Inactive levothyroxine 175 mcg tablet RxNorm: 045317 1 Tablet(s) PO QD 07/2407/23/2014 Inactive Synthroid 137 mcg tablet RxNorm: 893709 1 Tablet(s) PO QD 10/26/2015 10/25/2015 Inactive Pepcid AC 10 mg tablet RxNorm: 541488 1 Tablet(s) PO QD 08/10/2015 Inactive pravastatin 40 mg tablet RxNorm: 190293 1 Tablet(s) PO QD 08/10/2016 08/09/2016 Inactive levothyroxine 137 mcg tablet RxNorm: 411497 1 Tablet(s) PO QD 12/3112/30/2014 Inactive amlodipine 5 mg tablet RxNorm: 468979 1 Tablet(s) PO QD 06/10/2018 Inactive Lisinopril-Hydrochlorothiazide 10 mg-12.5 mg Tab RxNorm: 197 885 1/2 Tablet(s) PO QD 12/06/2009 12/05/2009 Inactive Medication Administered No Medication Administered data Immunizations Vaccine Codes Dose Date Status Covid-19 CVX: 207 03/10/2021 Pneumococcal CVX: 33 0.5 01/19/2021 Complete Pneumococcal CVX: 133 0.5 01/14/2020 Complete Shingrix Unknown 12/18/2017 Shingrix Unknown 10/01/2017 Results Observation Observation Code Item Item Code Result Date S ervice Location COMPREHENSIVE METABOLIC 24528 AST 24 U/L 2012 Unknown COMPREHENSIVE METABOLIC 28854 ALT 39 IU/L 2012 Unknown COMPREHENSIVE METABOLIC 93625 BUN 25 MG/DL 2012 Unknown COMPREHENSIVE METABOLIC 67999 ALBUMIN 4.7 GM/DL 2012 Unknown COMPREHENSIVE METABOLIC 19608 CHLORIDE 101 MMOL/L 09/18 Unknown COMPREHENSIVE METABOLIC 73476 BILI TOT 0.3 MG/DL 2012 Unknown COMPREHENSIVE METABOLIC 93487 ALK PHOS 116 U/L 2012 Unknown COMPREHENSIVE METABOLIC 85377 SODIUM 136 MMOL/L 09/18 Unknown COMPREHENSIVE METABOLIC 59648 CREATININE 1.11 MG/DL 09/07 Unknown COMPREHENSIVE METABOLIC 30683 CALCIUM 9.2 MG/DL 2012 Unknown COMPREHENSIVE METABOLIC 45536 POTASSIUM 3.6 MMOL/L 09/18 Unknown COMPREHENSIVE METABOLIC 81187 PROT TOT 7.2 GM/DL 2012 Unknown COMPREHENSIVE METABOLIC 81437 Glucose 104 MG/DL 2012 Unknown COMPREHENSIVE METABOLIC 97399 BICARB 27 MMOL/L 2012 Unknown COMPREHENSIVE METABOLIC 53374 ANION GAP 8 MEQ/L 2012 Unknown GFR CALC [id number] GFR AA >60 ML/MIN 09/18/2012 Unknown GFR CALC [id number] GFR NON-AA 50.0L ML/MIN 09/18/2012 Unkno wn ERYTHROCYTE SEDIMENTATION RATE 91688 ESR 34 MM/HR 09/18/2012 Unknown COMPLETE BLOOD COUNT [id number] WBC 5.6 10e9/L 09/19/19 13 Unknown COMPLETE BLOOD COUNT [id number] RBC 4.43 10e12/L 2012 Unknown COMPLETE BLOOD COUNT [id number] HGB 13.7 g/dL 3 Unknown COMPLETE BLOOD COUNT [id number] HCT DET 40.1 % 3 Unknown COMPLETE BLOOD COUNT [id number] MCV 90.5 fL 3 Unknown COMPLETE BLOOD COUNT [id number] MCH 30.9 pg 3 Unknown COMPLETE BLOOD COUNT [id number] MCHC 34.2 g/dL 3 Unknown COMPLETE BLOOD COUNT [id number] PLT 275 10e9/L 09/19/19 13 Unknown COMPLETE BLOOD COUNT [id number] MPV 9.8 fL 3 Unknown COMPLETE BLOOD COUNT [id number] WYATT % 61.8 % 3 Unknown COMPLETE BLOOD COUNT [id number] LY % 20.4 % 3 Unknown COMPLETE BLOOD COUNT [id number] MON % 15.6 % 3 Unknown COMPLETE BLOOD COUNT [id number] EOS % 1.8 % 3 Unknown COMPLETE BLOOD COUNT [id number] BASO % 0.4 % 3 Unknown COMPLETE BLOOD COUNT [id number] RDW 13.4 % 3 Unknown COMPLETE BLOOD COUNT [id number] ABS WYATT 3.46 10e9/L 013 Unknown COMPLETE BLOOD COUNT [id number] ABS LYMPH 1.14 10e9/L 013 Unknown COMPLETE BLOOD COUNT [id number] ABS MONO 0.87 10e9/L 013 Unknown COMPLETE BLOOD COUNT [id number] ABS EOS 0.10 10e9/L 013 Unknown COMPLETE BLOOD COUNT [id number] ABS BASO 0.02 10e9/L 013 Unknown COMPLETE BLOOD COUNT [id number] RDW-SD 43.6 fL 3 Unknown Procedures Procedure Codes Date SARSCOV & INF VIR A&B AG IA CPT-4: 95191 04/10/2022 SARSCOV & INF VIR A&B AG IA CPT-4: 56396 02/06/2022 DESTRUCT B9 LESION 1-14 CPT-4: 07536 10/03/2021 THER/PROPH/DIAG INJ SC/IM CPT-4: 02101 03/29/2021 TRIAMCINOLONE ACET INJ NOS CPT-4: J3301 03/29/2021 SARSCOV & INF VIR A&B AG IA CPT-4: 45246 03/28/2021 THER/PROPH/DIAG INJ SC/IM CPT-4: 02698 03/28/2021 METHYLPREDNISOLONE INJECTION CPT-4: J2930 03/28/2021 IMMUNIZATION ADMIN CPT-4: 40000 01/19/2021 PNEUMOCOCCAL VACC 23 IRIS IM CPT-4: 49710 01/19/2021 DESTRUCT B9 LESION 1-14 CPT-4: 45397 01/06/2021 DESTRUCT B9 LESION 1-14 CPT-4: 43835 09/20/2020 ADMIN PNEUMOCOCCAL VACCINE CPT-4: G0009 01/14/2020 PNEUMOCOCCAL VACC 13 IRIS IM CPT-4: 44044 01/14/2020 THER/PROPH/DIAG INJ SC/IM CPT-4: 26532 08/17/2015 TRIAMCINOLONE ACET INJ NOS CPT-4: J3301 08/17/2015 CEFTRIAXONE SODIUM INJECTION CPT-4: J0696 02/05/2014 THER/PROPH/DIAG INJ SC/IM CPT-4: 46631 02/05/2014 CEFTRIAXONE SODIUM INJECTION CPT-4: J0696 02/04/2014 THER/PROPH/DIAG INJ SC/IM CPT-4: 54649 02/04/2014 THER/PROPH/DIAG INJ SC/IM CPT-4: 84522 02/04/2014 METHYLPREDNISOLONE 40 MG INJ CPT-4: J1030 02/04/2014 TRIAMCINOLONE ACET INJ NOS CPT-4: J3301 02/04/2014 THER/PROPH/DIAG INJ SC/IM CPT-4: 68075 08/15/2013 METHYLPREDNISOLONE 40 MG INJ CPT-4: J1030 08/15/2013 TRIAMCINOLONE ACET INJ NOS CPT-4: J3301 08/15/2013 REMOVAL OF SKIN TAGS <W/15 CPT-4: 08910 07/31/2013 Vital Signs Date Vital 04/10/2022 Blood Pressure 1: 132/77 Code: 8480-6 Heart Rate 1: 76 bpm Height: Code: 8302-2 SpO2: 96% Temperature: 36.6 (C) / 97.9 (F) Weight: Code: 03827-2 10/03/2021 Blood Pressure 1: 134/78 Code: 8480-6 Heart Rate 1: 85 bpm Respiratory Rate: 18 bpm SpO2: 96% Temperature: 36.5 (C) / 97.7 (F) We ight: 232 lbs Code: 74099-1 06/20/2021 Blood Pressure 1: 130/80 Code: 8480-6 Heart Rate 1: 80 bpm Respiratory Rate: 19 bpm SpO2: 96% Temperature: 36.3 (C) / 97.3 (F) We ight: 238 lbs Code: 48847-1 06/06/2021 Blood Pressure 1: 132/84 Code: 8480-6 BMI: 39.6 Code: 37754-2 Heart Rate 1: 76 bpm Height: 5'5" Code: 8302-2 Respiratory Rate: 20 bpm SpO2: 97% Temperature: 36.6 (C) / 97.9 (F) Weight: 238 lbs Code: 44898-4 03/29/2021 Blood Pressure 1: 130/78 Code: 8480-6 Heart Rate 1: 80 bpm Respiratory Rate: 20 bpm SpO2: 98% Temperature: 36.7 (C) / 98.1 (F) 03/28/2021 Blood Pressure 1: 132/76 Code: 8480-6 Heart Rate 1: 101 bpm Respiratory Rate: 17 bpm SpO2: 97% Temperature: 36.6 (C) / 97.8 (F) We ight: 240 lbs Code: 28718-1 01/06/2021 Blood Pressure 1: 132/82 Code: 8480-6 Heart Rate 1: 76 bpm Respiratory Rate: 20 bpm SpO2: 98% Temperature: 36.8 (C) / 98.3 (F) We ight: 242 lbs Code: 67896-7 09/20/2020 Blood Pressure 1: 130/84 Code: 8480-6 Heart Rate 1: 68 bpm Respiratory Rate: 20 bpm SpO2: 98% Temperature: 36.9 (C) / 98.4 (F) We ight: 237 lbs Code: 71007-1 04/14/2020 Blood Pressure 1: 130/72 Code: 8480-6 Heart Rate 1: 66 bpm Respiratory Rate: 15 bpm Temperature: 36.6 (C) / 97.9 (F) Weight: 237 lbs Code : 91615-9 01/05/2020 Blood Pressure 1: 132/84 Code: 8480-6 Heart Rate 1: 72 bpm Respiratory Rate: 20 bpm SpO2: 95% Temperature: 36.3 (C) / 97.3 (F) We ight: 238 lbs Code: 10242-1 10/01/2019 Blood Pressure 1: 126/82 Code: 8480-6 Heart Rate 1: 76 bpm Respiratory Rate: 20 bpm SpO2: 95% Temperature: 36.8 (C) / 98.2 (F) We ight: 238 lbs Code: 38672-5 04/08/2019 Blood Pressure 1: 126/84 Code: 8480-6 Heart Rate 1: 88 bpm Respiratory Rate: 20 bpm SpO2: 98% Temperature: 36.9 (C) / 98.5 (F) We ight: 233 lbs Code: 34018-1 01/06/2019 Blood Pressure 1: 132/82 Code: 8480-6 Heart Rate 1: 87 bpm SpO2: 97% Temperature: 36.5 (C) / 97.7 (F) Weight: 232 lbs Code: 71494-1 12/30/2018 Blood Pressure 1: 122/82 Code: 8480-6 Heart Rate 1: 76 bpm Respiratory Rate: 20 bpm SpO2: 96% Temperature: 37.0 (C) / 98.6 (F) We ight: 237 lbs Code: 89865-2 07/08/2018 Blood Pressure 1: 134/86 Code: 8480-6 Heart Rate 1: 72 bpm Respiratory Rate: 20 bpm SpO2: 96% Temperature: 36.8 (C) / 98.2 (F) We ight: 241 lbs Code: 78344-9 06/10/2018 Blood Pressure 1: 142/90 Code: 8480-6 BMI: 40.6 Code: 50210-1 Heart Rate 1: 80 bpm Height: 5'5" Code: 8302-2 Respiratory Rate: 20 bpm SpO2: 96% Temperature: 37.0 (C) / 98.6 (F) Weight: 244 lbs Code: 24923-7 09/04/2017 Blood Pressure 1: 142/86 Code: 8480-6 BMI: 40.1 Code: 42911-3 Heart Rate 1: 76 bpm Height: 5'5" Code: 8302-2 Respiratory Rate: 20 bpm SpO2: 96% Temperature: 36.7 (C) / 98.0 (F) Weight: 241 lbs Code: 76743-3 08/16/2017 Blood Pressure 1: 136/94 Code: 8480-6 Heart Rate 1: 76 bpm Respiratory Rate: 20 bpm SpO2: 94% Temperature: 36.8 (C) / 98.2 (F) We ight: 245 lbs Code: 20103-9 08/10/2016 Blood Pressure 1: 142/92 Code: 8480-6 BMI: 39.8 Code: 26299-6 Heart Rate 1: 72 bpm Height: 5'5" Code: 8302-2 Respiratory Rate: 20 bpm Temperatu re: 36.6 (C) / 97.8 (F) Weight: 239 lbs Code: 57593-9 12/29/2015 Blood Pressure 1: 126/80 Code: 8480-6 Heart Rate 1: 76 bpm Height: Code: 8302-2 Respiratory Rate: 20 bpm Temperature: 36.9 (C) / 98.5 (F) We ight: Code: 12099-8 10/28/2015 Blood Pressure 1: 136/78 Code: 8480-6 Heart Rate 1: 106 bpm Height: Code: 8302-2 Respiratory Rate: 24 bpm SpO2: 92% Temperature: 37 .8 (C) / 100.0 (F) Weight: Code: 74123-0 08/10/2015 Blood Pressure 1: 134/92 Code: 8480-6 Heart Rate 1: 80 bpm Respiratory Rate: 20 bpm Temperature: 36.8 (C) / 98.2 (F) Weight: 244 lbs Code : 06430-0 12/31/2014 Blood Pressure 1: 132/90 Code: 8480-6 BMI: 39.8 Code: 47873-1 Heart Rate 1: 80 bpm Height: 5'5" Code: 8302-2 Respiratory Rate: 20 bpm Temperatu re: 37.0 (C) / 98.6 (F) Weight: 239 lbs Code: 07682-9 06/25/2014 Blood Pressure 1: 126/84 Code: 8480-6 BMI: 40.8 Code: 17006-8 Heart Rate 1: 76 bpm Height: 5'5" Code: 8302-2 Respiratory Rate: 20 bpm Temperatu re: 37.2 (C) / 99.0 (F) Weight: 245 lbs Code: 57302-1 02/05/2014 Blood Pressure 1: 136/86 Code: 8480-6 BMI: 40.6 Code: 45683-9 Heart Rate 1: 80 bpm Height: 5'5" Code: 8302-2 Respiratory Rate: 20 bpm Temperatu re: 36.6 (C) / 97.8 (F) Weight: 244 lbs Code: 72735-4 02/04/2014 Blood Pressure 1: 128/84 Code: 8480-6 BMI: 40.6 Code: 08072-0 Heart Rate 1: 76 bpm Height: 5'5" Code: 8302-2 Respiratory Rate: 20 bpm Temperatu re: 37.4 (C) / 99.3 (F) Weight: 244 lbs Code: 58782-3 11/27/2013 Blood Pressure 1: 122/78 Code: 8480-6 BMI: 40.4 Code: 99411-1 Heart Rate 1: 72 bpm Height: 5'5" Code: 8302-2 Respiratory Rate: 22 bpm Temperatu re: 36.3 (C) / 97.3 (F) Weight: 243 lbs Code: 07105-2 08/15/2013 Blood Pressure 1: 126/84 Code: 8480-6 BMI: 39.9 Code: 15940-5 Heart Rate 1: 68 bpm Height: 5'5" Code: 8302-2 Respiratory Rate: 22 bpm Temperatu re: 35.6 (C) / 96.1 (F) Weight: 240 lbs Code: 22513-6 07/31/2013 Blood Pressure 1: 136/88 Code: 8480-6 BMI: 41.0 Code: 25575-3 Heart Rate 1: 80 bpm Height: 5'4" Code: 8302-2 Respiratory Rate: 20 bpm Temperatu re: 36.9 (C) / 98.4 (F) Weight: 239 lbs Code: 85532-4 09/18/2012 Blood Pressure 1: 122/86 Code: 8480-6 BMI: 38.6 Code: 23405-7 Heart Rate 1: 100 bpm Height: 5'4" Code: 8302-2 Respiratory Rate: 20 bpm Temperatu re: 36.7 (C) / 98.0 (F) Weight: 225 lbs Code: 18796-5 09/13/2012 Blood Pressure 1: 124/78 Code: 8480-6 BMI: 39.5 Code: 29543-8 Heart Rate 1: 68 bpm Height: 5'4" Code: 8302-2 Temperature: 36.3 (C) / 97.4 (F) Weight: 230 lbs Code: 24735-0 06/06/2012 Blood Pressure 1: 116/72 Code: 8480-6 BMI: 38.4 Code: 64988-5 Heart Rate 1: 80 bpm Height: 5'4" Code: 8302-2 Respiratory Rate: 20 bpm Temperatu re: 36.9 (C) / 98.4 (F) Weight: 224 lbs Code: 47878-4 03/06/2012 Blood Pressure 1: 122/70 Code: 8480-6 BMI: 38.4 Code: 94990-6 Heart Rate 1: 84 bpm Height: 5'4" Code: 8302-2 Respiratory Rate: 20 bpm Temperatu re: 36.6 (C) / 97.9 (F) Weight: 224 lbs Code: 52079-2 02/05/2012 Blood Pressure 1: 116/78 Code: 8480-6 BMI: 39.7 Code: 49323-8 Heart Rate 1: 92 bpm Height: 5'4" Code: 8302-2 Respiratory Rate: 20 bpm Temperatu re: 36.7 (C) / 98.0 (F) Weight: 231 lbs Code: 07111-3 01/08/2012 Blood Pressure 1: 116/78 Code: 8480-6 BMI: 39.5 Code: 62411-5 Heart Rate 1: 84 bpm Height: 5'4" Code: 8302-2 Respiratory Rate: 20 bpm Temperatu re: 36.8 (C) / 98.2 (F) Weight: 230 lbs Code: 75983-8 11/15/2011 Blood Pressure 1: 114/78 Code: 8480-6 BMI: 39.1 Code: 97662-3 Heart Rate 1: 88 bpm Height: 5'4" Code: 8302-2 Respiratory Rate: 20 bpm Temperatu re: 36.8 (C) / 98.2 (F) Weight: 228 lbs Code: 04082-6 02/08/2011 Blood Pressure 1: 114/78 Code: 8480-6 BMI: 39.5 Code: 94525-9 Heart Rate 1: 72 bpm Height: 5'4" Code: 8302-2 Respiratory Rate: 20 bpm Temperatu re: 36.7 (C) / 98.0 (F) Weight: 230 lbs Code: 82117-9 05/24/2010 Blood Pressure 1: 106/74 Code: 8480-6 Heart Rate 1: 80 bpm Temperature: 36.6 (C) / 97.8 (F) Weight: 219 lbs Code: 49081-1 08/09/2009 Blood Pressure 1: 116/76 Code: 8480-6 BMI: 37.4 Code: 51355-6 Heart Rate 1: 88 bpm Height: 5'4" Code: 8302-2 Temperature: 36.6 (C) / 97.9 (F) Weight: 218 lbs Code: 18046-0 Functional Status No Functional Status data Reason For Visit Reason For Visit Effective Dates Notes cough 04/10/2022 headache 04/10/2022 sore throat 04/10/2022 sinus congestion 04/10/2022 sinus congestion 02/06/2022 headache 02/06/2022 sore throat 02/06/2022 hoarseness 02/06/2022 diarrhea 10/03/2021 hematochezia 10/03/2021 myalgias 06/20/2021 pain, limb 06/06/2021 cough 03/29/2021 lung recheck sore throat 03/28/2021 sinus congestion 03/28/2021 nasal discharge 03/28/2021 postnasal drip 03/28/2021 cough 03/28/2021 follow up 01/06/2021 high blood pressure 01/06/2021 hypothyroid 01/06/2021 fatigue 01/06/2021 mole check 09/20/2020 lab draw 04/14/2020 hypothyroid 04/14/2020 hyperglycemia 04/14/2020 ~generic 04/14/2020 patient would like d iscussing having mole removed on the left side under arm. injection(s) 01/05/2020 Discuss pneumonia high blood pressure 01/05/2020 follow up 10/01/2019 hypothyroid 10/01/2019 high blood pressure 10/01/2019 hyperglycemia 10/01/2019 diarrhea 10/01/2019 follow up 04/08/2019 high blood pressure 04/08/2019 hypothyroid 04/08/2019 hyperlipidemia 04/08/2019 hyperglycemia 04/08/2019 cough 04/08/2019 cough 01/06/2019 follow up 12/30/2018 high blood pressure 12/30/2018 hypothyroid 12/30/2018 joint complaint 12/30/2018 follow up 07/08/2018 hyperglycemia 07/08/2018 high blood pressure 07/08/2018 hypothyroid 06/10/2018 hair loss 06/10/2018 high blood pressure 06/10/2018 fatigue 06/10/2018 well woman exam (40-65 years) 09/04/2017 Wellness P hysical, patient sees Adrienne Snell for pap smears and is due this summer mole check 09/04/2017 edema 09/04/2017 ecchymosis 09/04/2017 edema 08/16/2017 knee pain 08/10/2016 Elevated Liver Enzymes 08/10/2016 hypothyroid 12/29/2015 fatigue 12/29/2015 hair loss 12/29/2015 fatigue 10/28/2015 hypothyroid 10/28/2015 Patient started on L evothyroxine 137mcg daily-BRAND NAME sinusitis 10/28/2015 anorexia 10/28/2015 hives (urticaria) 08/17/2015 rash 08/10/2015 hives (urticaria) 08/10/2015 diarrhea 08/10/2015 rash 12/31/2014 ~generic 12/31/[address] Rogelio akhtar----she thinks that his diagnosis was cirrohsis of the liver Annual Checkup 06/25/2014 Wellness Physical hives (urticaria) 06/25/2014 hyperlipidemia 06/25/2014 diabetes mellitus 06/25/2014 hypothyroid 06/25/2014 cough 06/25/2014 follow up 02/05/2014 1 day fwup pneumonia 02/05/2014 sinusitis 02/05/2014 eye erythema 02/05/2014 eyelid edema 02/05/2014 cough 02/05/2014 pain, limb 02/04/2014 hoarseness 02/04/2014 eyelid edema 02/04/2014 eye erythema 02/04/2014 sinus congestion 02/04/2014 sinus pain 02/04/2014 high blood pressure 11/27/2013 Needs refill for Met oprolol fatigue 11/27/2013 weight gain/obesity 11/27/2013 vision change 11/27/2013 hives (urticaria) 08/15/2013 Chronic cough 08/15/2013 voice change 08/15/2013 skin lesion 07/31/2013 hypothyroid 07/31/2013 Needs order for Care ATC labs hyperglycemia 07/31/2013 Discuss restarting m etformin diarrhea 09/18/2012 Thinks may have food poisoning again nausea 09/18/2012 diaphoresis 09/18/2012 fever 09/18/2012 myalgias 09/13/2012 chest pain/pressure 09/13/2012 follow up 06/06/2012 3mo fwup arthralgia(s) 06/06/2012 Discuss recent speci alist appt hyperglycemia 06/06/2012 Monitoring BS every couple days cough 06/06/2012 skin lesion 06/06/2012 thumbs peeling follow up 03/06/2012 1mo fwup arthralgia(s) 03/06/2012 hyperglycemia 03/06/2012 cough 03/06/2012 fatigue 03/06/2012 follow up 02/05/2012 1mo fwup arthralgia(s) 02/05/2012 hypothyroid 02/05/2012 currently taking lev othyroxine 137 high blood pressure 02/05/2012 refill lisinopril/HC T depression 02/05/2012 refill zoloft joint complaint 01/08/2012 arthralgia(s) 01/08/2012 high blood pressure 11/15/2011 hypothyroid 11/15/2011 due for labs follow up 02/08/2011 discuss labs hypothyroid 02/08/2011 refill levothyroxine fatigue 02/08/2011 hypothyroid 05/24/2010 currently taking lev othyroxine 112mcg qd, last labs done in February disturbances of emotion 05/24/2010 fatigue 08/09/2009 hx of anemia and hyp othyroidism hypothyroid 08/09/2009 Encounters Encounter Performer Location Location Address Codes Date ([id number]) OFFICE/OUTPATIENT VISIT EST Diagnosis: Influenza B[ICD10: J10.1] Dory WILKESR DO [address] [address] CPT-4: 58711 04/10/2022 ([id number]) OFFICE/OUTPATIENT VISIT EST Diagnosis: URI, ACUTE[ICD10: J06.9] Diagnosis: Influenza B[ICD10: J10.1] Dory STALLINGS NDER DO [address] [address] CPT-4: 17534 02/06/2022 ([id number]) OFFICE/OUTPATIENT VISIT EST Diagnosis: Diarrhea[ICD10: R19.7] Diagnosis: Proctitis[ICD10: K62.89] Diagnosis: Colitis[ICD10: K52.9] Diagnosis: Inflamed seborrheic keratosis[ICD10: L82.0] Dory DE LA PAZ [address] [address] CPT- 4: 75578 10/03/2021 ([id number]) OFFICE/OUTPATIENT VISIT EST Diagnosis: Osteoarthritis of knees, bilateral[ICD10: M17.0] Diagnosis: Essential (primary) hypertension[ICD10: I10] Dory DE LA PAZ [address] [address] CPT- 4: 69762 06/20/2021 ([id number]) OFFICE/OUTPATIENT VISIT EST Diagnosis: Edema[ICD10: R60.9] Diagnosis: Rectal bleeding[ICD10: K62.5] Diagnosis: Osteoarthritis of knees, bilateral[ICD10: M17.0] Dory DE LA PAZ [address] [address] CPT- 4: 98606 06/06/2021 ([id number]) OFFICE/OUTPATIENT VISIT EST Diagnosis: URI, ACUTE[ICD10: J06.9] Diagnosis: Acute sinusitis[ICD10: J01.90] Dory DE LA PAZ [address] [address] CPT-4: 54977 03/29/2021 ([id number]) OFFICE/OUTPATIENT VISIT EST Diagnosis: Contact with and (suspected) exposure to covid-19[ICD10: Z20.822] Diagnosis: Upper respiratory infection[ICD10: J06.9] Mamie DE LA PAZ [address] [address] CPT-4: 99137 03/28/2021 ([id number]) NURSE/OUTPATIENT VISIT EST Diagnosis: Encounter for immunization[ICD10: Z23] Dory Gerardsharlajosh DE LA PAZ [address] [address] CPT-4: 01088 01/19/2021 ([id number]) OFFICE/OUTPATIENT VISIT EST Diagnosis: Essential (primary) hypertension[ICD10: I10] Diagnosis: Hypothyroidism, unspecified[ICD10: E03.9] Diagnosis: Inflamed seborrheic keratosis[ICD10: L82.0] Diagnosis: Colitis[ICD10: K52.9] Dory DE LA PAZ [address] [address] CPT-4: 56218 01/06/2021 ([id number]) OFFICE/OUTPATIENT VISIT EST Diagnosis: Inflamed seborrheic keratosis[ICD10: L82.0] Diagnosis: Colitis[ICD10: K52.9] Dory DE LA PAZ [address] [address] CPT-4: 15517 09/20/2020 ([id number]) OFFICE/OUTPATIENT VISIT EST Diagnosis: Essential (primary) hypertension[ICD10: I10] Diagnosis: Hypothyroidism, unspecified[ICD10: E03.9] Diagnosis: Hyperglycemia, unspecified[ICD10: R73.9] Dory DE LA PAZ [address] [address] CPT- 4: 36858 04/14/2020 ([id number]) NURSE/OUTPATIENT VISIT EST Diagnosis: Encounter for immunization[ICD10: Z23] Dory DE LA PAZ DO [address] [address] CPT-4: 22163 01/14/2020 ([id number]) OFFICE/OUTPATIENT VISIT EST Diagnosis: Essential (primary) hypertension[ICD10: I10] Diagnosis: Colitis[ICD10: K52.9] Dory DE LA PAZ DO [address] [address] CPT-4: 34530 01/05/2020 ([id number]) OFFICE/OUTPATIENT VISIT EST Diagnosis: Essential (primary) hypertension[ICD10: I10] Diagnosis: Diarrhea[ICD10: R19.7] Dory Faustin DO [address] [address] CPT-4: 12311 10/01/2019 ([id number]) OFFICE/OUTPATIENT VISIT EST Diagnosis: Essential (primary) hypertension[ICD10: I10] Diagnosis: Hypothyroidism, unspecified[ICD10: E03.9] Diagnosis: Hyperglycemia, unspecified[ICD10: R73.9] Diagnosis: Cough[ICD10: R05] Diagnosis: Colitis[ICD10: K52.9] Dory DE LA PAZ DO [address] [address] CPT-4: 22603 04/08/2019 ([id number]) OFFICE/OUTPATIENT VISIT EST Diagnosis: Cough[ICD10: R05] Diagnosis: Upper respiratory infection[ICD10: J06.9] Rachel Turnermiguel Lambert STUART DE LA PAZ DO [address] [address] CPT-4: 51676 01/06/2019 ([id number]) OFFICE/OUTPATIENT VISIT EST Diagnosis: Essential (primary) hypertension[ICD10: I10] Diagnosis: Hypothyroidism, unspecified[ICD10: E03.9] Diagnosis: Hyperglycemia, unspecified[ICD10: R73.9] Diagnosis: Diarrhea[ICD10: R19.7] Dory Faustin [address] [address] CPT-4: 48945 12/30/2018 ([id number]) OFFICE/OUTPATIENT VISIT EST Diagnosis: Essential (primary) hypertension[ICD10: I10] Diagnosis: Hyperglycemia, unspecified[ICD10: R73.9] Diagnosis: Hypothyroidism, unspecified[ICD10: E03.9] Dory HOLCOMB AmauriAida JASSI JONES [facility] [address] [place] [address] CPT- 4: 67239 07/08/2018 ([id number]) OFFICE/OUTPATIENT VISIT EST Diagnosis: Essential (primary) hypertension[ICD10: I10] Diagnosis: Localized edema[ICD10: R60.0] Diagnosis: Hypothyroidism, unspecified[ICD10: E03.9] Diagnosis: Other fatigue[ICD10: R53.83] Diagnosis: Hyperglycemia, unspecified[ICD10: R73.9] Diagnosis: Contact with and (suspected) exposure to potentially hazardous body fluids[ICD10: Z77.21] Dory Cates GERARDSHARLAJOSH [facility] [address] [place] [address] CPT-4: 61766 06/10/2018 ([id number]) PREV VISIT EST AGE 40-64 Diagnosis: Encounter for general adult medical examination without abnormal findings[ICD10: Z00.00] Diagnosis: Essential (primary) hypertension[ICD10: I10] Diagnosis: Localized edema[ICD10: R60.0] Dory Cates GERARDRONDA JONES [facility] [address] [place] [address] CPT-4: 82691 09/04/2017 ([id number]) OFFICE/OUTPATIENT VISIT EST Diagnosis: Localized edema[ICD10: R60.0] Dory Cates GERARDSHARLAJOSH JONES [facility] [address] [place] [address] CPT-4: 11759 08/16/2017 ([id number]) OFFICE/OUTPATIENT VISIT EST Diagnosis: Pain in right knee[ICD10: M25.561] Dory Cates GERARDNDER [facility] [address] [place] [phone] CPT-4: 71742 08/10/2016 ([id number]) OFFICE/OUTPATIENT VISIT EST Diagnosis: Other fatigue[ICD10: R53.83] Diagnosis: Hypothyroidism, unspecified[ICD10: E03.9] Dory DE LA PAZ DO [address] [address] CPT- 4: 43502 12/29/2015 ([id number]) NO CHARGE Diagnosis: Dehydration[ICD10: E86.0] Diagnosis: Fever, unspecified[ICD10: R50.9] Dory DE LA PAZ DO [address] [address] CPT-4: 99445 10/28/2015 ([id number]) OFFICE/OUTPATIENT VISIT EST Diagnosis: Urticaria, unspecified[ICD10: L50.9] Dory YINGER [address] [address] CPT-4: 47383 08/17/2015 ([id number]) OFFICE/OUTPATIENT VISIT EST Diagnosis: Tinea cruris[ICD10: B35.6] Diagnosis: Pain in right knee[ICD10: M25.561] Diagnosis: Diarrhea, unspecified[ICD10: R19.7] Dory GARCIAMUSAGissel STALLINGSNDER DO [address] [address] CPT-4: 02594 08/10/2015 ([id number]) OFFICE/OUTPATIENT VISIT EST Diagnosis: CELLULITIS[ICD9: 682.9] Diagnosis: FOLLICULITIS[ICD9: 704.8] Dory STALLINGS NDER DO [address] [address] CPT-4: 95591 12/31/2014 ([id number]) PREV VISIT EST AGE 40-64 Diagnosis: ROUTINE MEDICAL EXAM[ICD9: V70.0] Diagnosis: URTICARIA[ICD9: 708.9] Diagnosis: HYPOTHYROIDISM[ICD9: 244.9] Diagnosis: Elevated liver enzymes[ICD9: 790.5] Dory Oreronda ALMEIDA NAZANIN STALLINGSNDER DO [address] [address] CPT-4: 66181 06/25/2014 ([id number]) OFFICE/OUTPATIENT VISIT EST Diagnosis: SINUSITIS, ACUTE[ICD9: 461.9] Diagnosis: PNEUMONIA, ORGANISM[ICD9: 486] Dory YINGER [address] [address] CPT-4: 29523 02/05/2014 ([id number]) OFFICE/OUTPATIENT VISIT EST Diagnosis: Periorbital edema[ICD9: 782.3] Diagnosis: PNEUMONIA, ORGANISM[ICD9: 486] Dory DE LA PAZ DO [address] [address] CPT-4: 96565 02/04/2014 OFFICE/OUTPATIENT VISIT EST Diagnosis: SINUSITIS, ACUTE[ICD9: 461.9] Diagnosis: URTICARIA[ICD9: 708.9] Diagnosis: HYPERTENSION[ICD9: 401.9] Lashon BOND [address] [address] CPT-4: 45777 11/27/2013 OFFICE/OUTPATIENT VISIT EST Diagnosis: URTICARIA[ICD9: 708.9] Diagnosis: COUGH[ICD9: 786.2] Lashon YINGER [address] [address] CPT-4: 60492 08/16/19 14 ([id number]) OFFICE/OUTPATIENT VISIT EST Diagnosis: HYPOTHYROIDISM[ICD9: 244.9] Diagnosis: HYPERTENSION[ICD9: 401.9] Diagnosis: DM W/O COMPLICATION TYPE II[ICD9: 250.00] Diagnosis: Skin tag[ICD9: 701.9] Diagnosis: Changing skin lesion[ICD9: 709.9] Dorykika De La Paz KRISTOPHER Sheldon YINGER DO [address] [address] CPT-4: 92387 07/31/2013 OFFICE/OUTPATIENT VISIT EST Diagnosis: Diarrhea[ICD9: 787.91] Diagnosis: ABDOMINAL PAIN[ICD9: 789.00] Rossy DE LA PAZ DO [address] [address] CPT-4: 44817 09/18/2012 OFFICE/OUTPATIENT VISIT EST Diagnosis: Chest pain[ICD9: 786.50] Dory BROWN INA DO [address] [address] CPT-4: 43771 09/13/2012 ([id number]) OFFICE/OUTPATIENT VISIT EST Diagnosis: HYPOTHYROIDISM[ICD9: 244.9] Diagnosis: COUGH[ICD9: 786.2] Diagnosis: DERMATITIS NOS[ICD9: 692.9] Dory ZAMARRIPALINE AmauriAida SEYMOUR DO [address] [address] CPT-4: 99057 06/06/2012 ([id number]) OFFICE/OUTPATIENT VISIT EST Diagnosis: HYPOTHYROIDISM[ICD9: 244.9] Diagnosis: DM W/O COMPLICATION TYPE II[ICD9: 250.00] Diagnosis: ARTHRALGIA-MULTIPLE SITES[ICD9: 719.49] Diagnosis: HYPERTENSION[ICD9: 401.9] Diagnosis: BRONCHITIS, ACUTE[ICD9: 466.0] Dory Baugh Aida DEONNAER DO [address] [address] CPT-4: 78869 03/06/2012 ([id number]) OFFICE/OUTPATIENT VISIT EST Diagnosis: HYPOTHYROIDISM[ICD9: 244.9] Diagnosis: ARTHRALGIA-MULTIPLE SITES[ICD9: 719.49] Diagnosis: DM W/O COMPLICATION TYPE II[ICD9: 250.00] Dory YINGER DO [address] [address] CPT- 4: 82279 02/05/2012 OFFICE/OUTPATIENT VISIT EST Diagnosis: ARTHRALGIA-MULTIPLE SITES[ICD9: 719.49] Diagnosis: Myalgia[ICD9: 729.1] Dory ZAMARRIPALINE AmauriAida DEONNAER DO [address] [address] CPT-4: 80882 01/08/20 12 ([id number]) OFFICE/OUTPATIENT VISIT EST Diagnosis: HYPERTENSION[ICD9: 401.9] Diagnosis: HYPOTHYROIDISM[ICD9: 244.9] Dory Cates [facility] [address] [place] [address] CPT-4: 59588 11/15/2011 OFFICE/OUTPATIENT VISIT EST Diagnosis: HYPOTHYROIDISM[ICD9: 244.9] Diagnosis: HYPERTENSION[ICD9: 401.9] Diagnosis: MALAISE AND FATIGUE[ICD9: 780.79] Dory Chung S. [facility] [address] [place] [address] CPT-4: 54751 02/08/2011 ([id number]) OFFICE/OUTPATIENT VISIT EST Dory JACKSON SAida [facility] [address] [place] [address] CPT-4: 63465 05/24/2010 ([id number]) OFFICE/OUTPATIENT VISIT, EST Dory SHEN AmauriAida [facility] DO [facility] [address] [place] [address] CPT-4: 03995 08/09/2009 Plan of Care Planned Activity Notes Codes Status Date Visit Diagnosis Plan: Influenza B Discussion: Tamiflu 75mg po BID for 5 days Supportive care ICD-9 : 487.1 ICD-10 : J10.1 04/10/2022 Patient Education: Tamiflu- OptimizeRX Coupon [id number] 1 https://www.Snapdeal/samplemd/resources/getResource/61/q8nm5n8c-3s93-62k8-q2 Completed 04/10/2022 Visit Diagnosis Plan: Influenza B Discussion: Tamiflu, SVNs with albuterol q4hrs, Z-pack Notify if worsening/persists ICD-9 : 487.1 ICD-10 : J10.1 02/06/2022 Appointment: Dory De La Paz WPtel: [address] [place], [place] [phone] [place] ACUTE ILLNESS 02/06/2022 Patient Education: Tamiflu- OptimizeRX Coupon [id number] 2 https://www.Arcarios.Ezeecube/samplemd/resources/getResource/61/j91228f7-275o-5fe7-xh Completed 02/06/2022 Visit Diagnosis Plan: Inflamed seborrheic keratosis Di scussion: Cryotherapy as above ICD-9 : 702.11 ICD-10 : L82.0 10/03/2021 Visit Diagnosis Plan: Diarrhea Discussion: Referral to Dr. Silver Likely will need updated EGD and colonoscopy ICD-9 : 787.91 ICD-10 : R19.7 10/03/2021 Appointment: Dory De La Paz WPtel: [phone] [phone] [place] FOLLOW UP 10/03/2021 Care Plan: Referral Order SNOMED-CT : 30 5860093 Pending 10/03/2021 Referral: Ezequiel Wang WPtel: [facility] [place] Referral Appointment Confirmed 08/10/2021 Visit Diagnosis Plan: Essential (primary) hypertension Discussion: Stable Will stay at higher dose of spirololactone ICD-9 : 401.9 ICD-10 : I10 06/20/2021 Visit Diagnosis Plan: Osteoarthritis of knees, bilater al Discussion: Due for shots in 1 month ICD-9 : 715.96 ICD-10 : M17.0 06/20/2021 Appointment: Dory De La Paz WPtel: [phone] [phone] [place] FOLLOW UP 06/20/2021 Patient Education: spironolactone- OptimizeRX Coupon 1 [id number] https://www.Arcarios.Ezeecube/samplemd/resources/getResource/61/8u79xx6m-55it-856s-t5 Completed 06/20/2021 Patient Education: levothyroxine- OptimizeRX Coupon 19 [id number] https://www.Arcarios.Ezeecube/samplemd/resources/getResource/61/8u7f5g58-6669-8zb5-u8 Completed 06/20/2021 Patient Education: sertraline- OptimizeRX Coupon 8 https://www.Arcarios.Ezeecube/samplemd/resources/getResource/61/a41hi54p-z233-6506-6i Completed 06/20/2021 Care Plan: Referral Order SNOMED-CT : 30 [id number] Pending 06/20/2021 Visit Diagnosis Plan: Rectal bleeding Discussion: See if prednisone helps Will likely need updated GI appointment since has been 1 1/2 years since last seen ICD-9 : 569.3 ICD-10 : K62.5 06/06/2021 Visit Diagnosis Plan: Edema Discussion: Increase nan nolactone to 100mg po q AM ICD-9 : 782.3 ICD-10 : R60.9 06/06/2021 Visit Diagnosis Plan: Osteoarthritis of knees, bilater al Discussion: Prednisone until fwup in 2 weeks ICD-9 : 715.96 ICD-10 : M17.0 06/06/2021 Appointment: Dory De La Paz WPtel: [facility] [address] ACUTE ILLNESS 06/06/2021 Patient Education: prednisone- OptimizeRX Coupon 7479 https://www.Arcarios.com/samplemd/resources/getResource/61/d7v33u7c-212v-7yf2-44 Completed 06/06/2021 Visit Diagnosis Plan: URI, ACUTE Discussion: Supportiv e care with rest, fluids, humidifier and Notify if worsens Kenalog 40mg IM x1 ICD-9 : 465.9 ICD-10 : J06.9 03/29/2021 Appointment: Dory De La Paz WPtel: [facility] [place] [phone] WORK IN 03/29/2021 Visit Plan: Supportive care. Rest, Fluid s, Tylenol/Motrin prn fever or bodyaches. Notify if worsening symptoms. 03/28/2021 Visit Diagnosis Plan: Upper respiratory infection Disc ussion: SoluMedrol 125 mg IM in office. Supportive care, rest, fluids, tylenol/ibuprofen, cool-mist humidifier, throat lozenges prn. Recommended flonase for allergy symptoms. Return to clinic if no improvement, worsening, or for any concerns. ICD-9 : 465.9 ICD-10 : J06.9 03/28/2021 Visit Diagnosis Plan: Contact with and (suspected) exp osure to covid-19 Discussion: Covid and flu negative ICD-9 : V01.79 ICD-10 : Z20.822 03/28/2021 Appointment: Mam[facility] Low [facility]el[facility] [phone] [facility] AC[facility] I[facility] 03/28/2021 Patient Education: Patient Medication Summary Completed 03/28/2021 Appointment: Dory De La Paz [phone] [phone] [place] Immunizations 01/19/2021 Visit Diagnosis Plan: Colitis Discussion: Following [facility] Dr. Wang ICD-9 : 558.9 ICD-10 : K52.9 01/06/2021 Visit Diagnosis Plan: Inflamed seborrheic keratosis Di scussion: Cryotherapy as above ICD-9 : 702.11 ICD-10 : L82.0 01/06/2021 Visit Diagnosis Plan: Essential (primary) hypertension Discussion: Stable Patient will return on January 13 for Pneumovax 23--she defers flu shot Did discuss COVID booster 6mos after her 2nd dose--will wait to see if Moderna has approval by end january otherwise will look at getting Pfizer Follow Up: 6 months ICD-9 : 401.9 ICD-10 : I10 01/06/2021 Visit Diagnosis Plan: Hypothyroidism, unspecified Disc ussion: Stable Continue current dose and repeat labs in 6mos ICD-9 : 244.9 ICD-10 : E03.9 01/06/2021 Appointment: Dory De La Paz [facility]el[facility] [phone] [facility] [place] FOLLOW UP 01/06/2021 Patient Education: levothyroxine- OptimizeRX Coupon 17 [id number] https://www.Arcarios.Ezeecube/samplenv/resources/getResource/61/5e872jw9-s64r-7397-nk Completed 01/06/2021 Visit Diagnosis Plan: Inflamed seborrheic keratosis Di scussion: Cryotherapy as above ICD-9 : 702.11 ICD-10 : L82.0 09/20/2020 Visit Diagnosis Plan: Colitis Discussion: Discussed re ferral to [facility] ICD-9 : 558.9 ICD-10 : K52.9 09/20/2020 Appointment: Dory De La Paz WPtel: [address] [place], [place] [phone] ACUTE ILLNESS 09/20/2020 Visit Diagnosis Plan: Essential (primary) hypertension Discussion: Stable ICD-9 : 401.9 ICD-10 : I10 04/14/2020 Visit Diagnosis Plan: Hyperglycemia, unspecified Discu ssion: Stable Repeat lab in 6mos ICD-9 : 790.29 ICD-10 : R73.9 04/14/2020 Visit Diagnosis Plan: Hypothyroidism, unspecified Disc ussion: Lab stable ICD-9 : 244.9 ICD-10 : E03.9 04/14/2020 Appointment: Dory De La Paztel: [address] [place], [place] [phone] FOLLOW UP 04/14/2020 Appointment: Dory De La Paztel: [address] [place], [place] [phone] NURSE SERVICES 01/14/2020 Visit Diagnosis Plan: Essential (primary) hypertension Discussion: Stable Will return for prevnar 13 next week Fasting lab in 3mos ICD-9 : 401.9 ICD-10 : I10 01/05/2020 Visit Diagnosis Plan: Colitis Discussion: GI started m esalamine ICD-9 : 558.9 ICD-10 : K52.9 01/05/2020 Appointment: Dory De La Paz WPtel: [address] [place], [place] [phone] ACUTE ILLNESS 01/05/2020 Visit Diagnosis Plan: Diarrhea Discussion: Colestid he aaron Saw Dr. Wang ICD-9 : 787.91 ICD-10 : R19.7 10/01/2019 Visit Diagnosis Plan: Essential (primary) hypertension Discussion: Stable Lab discussed Follow Up: 6 months ICD-9 : 401.9 ICD-10 : I10 10/01/2019 Appointment: Dory De La Paz [facility]Ptel[facility] [phone] [phone] [place] FOLLOW UP 10/01/2019 Patient Education: Zoloft- OptimizeRX Coupon [id number] https://www.Arcarios.Ezeecube/samplemd/resources/getResource/61/8wi7m4sh-83t3-333d-0h Completed 10/01/2019 Appointment: Dory De La Paz [facility]Ptel[facility] [phone] [phone] [place] CANCELED 09/25/2019 Care Plan: RML COMPREHEN METABOLIC PANEL LOINC : 77348-6 Pending 09/18/2019 Care Plan: RML ASSAY OF FREE THYROXINE Pe nding 09/18/2019 Care Plan: RML A1C HPLC LOINC : 75067-1 Pending 09/18/2019 Care Plan: RML COMPLETE CBC W/AUTO DIFF WBC LOINC : 05506-1 Pending 09/18/2019 Visit Diagnosis Plan: Hypothyroidism, unspecified Disc ussion: Continue with current dose and recheck levels in 6mos ICD-9 : 244.9 ICD-10 : E03.9 04/08/2019 Visit Diagnosis Plan: Colitis Discussion: Having repea t colonoscopy in 2 weeks ICD-9 : 558.9 ICD-10 : K52.9 04/08/2019 Visit Diagnosis Plan: Essential (primary) hypertension Discussion: Since has been off spironolactone will restart but at lower dose of 25mg daily and do BP check in 1month and fwup in 6mos ICD-9 : 401.9 ICD-10 : I10 04/08/2019 Visit Diagnosis Plan: Cough Discussion: Check CXR ICD-9 : 786.2 ICD-10 : R05 04/08/2019 Visit Diagnosis Plan: Hyperglycemia, unspecified Discu ssion: Mediterranean diet Combination of cardio and weight bearing exercise Check HbA1C in 6mos ICD-9 : 790.29 ICD-10 : R73.9 04/08/2019 Visit NOS Plan: Plan Notes: Mammogram ordere d 04/08/2019 Appointment: Dory De La Paz WPtel: [phone] [phone] FOLLOW UP 04/08/2019 Patient Education: Synthroid- OptimizeRX Coupon [id number] https://www.Snapdeal/Arcarios/resources/getResource/61/x2202981-6tru-3636-y9 Completed 04/08/2019 Patient Education: spironolactone- OptimizeRX Coupon 9 [id number] https://www.Snapdeal/Arcarios/resources/getResource/61/o51qmok7-0p74-1c79-wc Completed 04/08/2019 Care Plan: MAMMOGRAM SCREENING LOINC : 2 6347-5 Pending 04/08/2019 Care Plan: CHEST X-RAY 2VW FRONTAL&LATL LOINC : 83243-5 Pending 04/08/2019 Visit Diagnosis Plan: Upper respiratory infection Disc ussion: albuterol refilled for patient. tessalon perles prescribed to take as needed and low dose prednisone prescribed to take as directed. instructed to call office with any new or worsening symptoms including fever, dyspnea, etc. ICD-9 : 465.9 ICD-10 : J06.9 01/06/2019 Appointment: Rachel Singleton [address] [place], [place] [address] ACUTE ILLNESS 01/06/2019 Patient Education: albuterol sulfate- OptimizeRX Coupo n [id number] https://www.Arcarios.Ezeecube/Elemental Technologiesmd/resources/getResource/61/yeq8v9m8-6706-3tm5-op Completed 01/06/2019 Patient Education: prednisone- OptimizeRX Coupon [id number] https://www.Snapdeal/Elemental Technologiesmd/resources/getResource/61/sg9qbqa1-388a-5b4a-5c Completed 01/06/2019 Visit Diagnosis Plan: Essential (primary) hypertension Discussion: Stable ICD-9 : 401.9 ICD-10 : I10 12/30/2018 Visit Diagnosis Plan: Hyperglycemia, unspecified Discu ssion: Check HbA1C in [facility] ICD-9 : 790.29 ICD-10 : R73.9 12/30/2018 Visit Diagnosis Plan: Diarrhea Discussion: Sees Dr. Fox this week--may need another colonoscopy ICD-9 : 787.91 ICD-10 : R19.7 12/30/2018 Visit Diagnosis Plan: Hypothyroidism, unspecified Disc ussion: Check thyroid lab in [facility] ICD-9 : 244.9 ICD-10 : E03.9 12/30/2018 Appointment: Dory De La Paz WPtel: [phone] [place] [phone] [place] FOLLOW UP 12/30/2018 Appointment: Dory De La Paz WPtel: [facility] [place] [phone] [place] will call back to reschedule CANCELED 04/2018 Visit Diagnosis Plan: Hypothyroidism, unspecified Disc ussion: Stay on brand synthroid--sent to synthroid direct ICD-9 : 244.9 ICD-10 : E03.9 07/08/2018 Visit Diagnosis Plan: Hyperglycemia, unspecified Discu ssion: Mediterranean diet Combination of cardio and weight bearing exercise Check HbA1C and fwup in 3mos ICD-9 : 790.29 ICD-10 : R73.9 07/08/2018 Visit Diagnosis Plan: Essential (primary) hypertension Discussion: Stable/improved with med change ICD-9 : 401.9 ICD-10 : I10 07/08/2018 Appointment: Dory De La Paz WPtel: [phone] [phone] [place] FOLLOW UP 07/08/2018 Patient Education: Synthroid- OptimizeRX Coupon [id number] https://www.Snapdeal/Arcarios/resources/getResource/61/d3x2823o-xfwc-9y89-3l Completed 07/08/2018 Visit Diagnosis Plan: Localized edema Discussion: Low Na Diet Compression Socks ICD-9 : 782.3 ICD-10 : R60.0 06/10/2018 Visit Diagnosis Plan: Hypothyroidism, unspecified Disc ussion: Stable on current dose ICD-9 : 244.9 ICD-10 : E03.9 06/10/2018 Visit Diagnosis Plan: Essential (primary) hypertension Discussion: Add spironolactone both for BP and swelling Check Chem 7 in 1month then fwup ICD-9 : 401.9 ICD-10 : I10 06/10/2018 Visit Diagnosis Plan: Contact with and ( suspected) exposure to potentially hazardous body fluids Discussion: Tamiflu due to recent flu ex posure ICD-9 : V15.85 ICD-10 : Z77.21 06/10/2018 Visit Diagnosis Plan: Hyperglycemia, unspecified Discu ssion: Mediterranean diet Combination of cardio and weight bearing exercise Check HbA1C in 1 month ICD-9 : 790.29 ICD-10 : R73.9 06/10/2018 Appointment: Dory De La Paz WPtel: [phone] [facility] FOLLOW UP 06/10/2018 Patient Education: spironolactone- OptimizeRX Coupon [id number] Completed 06/10/2018 Patient Education: oseltamivir- OptimizeRX Coupon [id number] Completed 06/10/2018 Patient Education: Synthroid- OptimizeRX Coupon [id number] Completed 06/10/2018 Patient Education: Patient Medication Summary Completed 10/11/2017 Care Plan: RML ASSAY OF FREE THYROXINE Pe nding 10/11/2017 Care Plan: RML ASSAY THYROID STIM HORMONE Pending 10/11/2017 Appointment: Dory De La Paz [facility]Ptel: [phone] [facility] [place] INJECTION 10/01/2017 Patient Education: Patient Medication Summary Completed 10/01/2017 Visit Diagnosis Plan: Encounter for gene [facility] adult medical examination without abnormal findings Discussion: Sees CULLET [facility]USHER this summer Mammo u p to date Update Colonoscopy Recommend Shingrix Start daily Calcium with Vitamin D 500mg/1000u Tdap in 2011 Has full fasting lab in September at work ICD-9 : V70.9 ICD-10 : Z00.00 09/04/2017 Visit Diagnosis Plan: Essential (primary) hypertension Discussion: Change lasix and potassium to HCTZ BP check in couple months when returns to have SK of back removed ICD-9 : 401.9 ICD-10 : I10 09/04/2017 Appointment: Dory De La Paz WPtel: [phone] [phone] Annual Well Visit 09/04/2017 Patient Education: Patient Medication Summary Completed 09/04/2017 Care Plan: Referral Order SNOMED-CT : 30 5853030 Pending 09/04/2017 Appointment: Dory De La Paz WPtel: [phone] [place] [phone] [place] CANCELED 08/28/2017 Visit Diagnosis Plan: Localized edema Discussion: Stat RLE venous doppler If negative will start lasix and potassium and recheck in 1 week Patient understands she will hear from us tonite on results--given sample of eliquis 5mg in case needs to start tonite ICD-9 : 782.3 ICD-10 : R60.0 08/16/2017 Appointment: Dory De La Paz WPtel: [facility] [place] [phone] ACUTE ILLNESS 08/16/2017 Patient Education: Patient Medication Summary Completed 08/16/2017 Patient Education: Patient Medication Summary Completed 03/20/2017 Care Plan: MAMMOGRAM SCREENING LOINC : 2 6347-5 Pending 03/20/2017 Patient Education: Patient Medication Summary Completed 03/12/2017 Care Plan: RML ASSAY OF FREE THYROXINE Pe nding 03/12/2017 Care Plan: RML ASSAY THYROID STIM HORMONE Pending 03/12/2017 Patient Education: Patient Medication Summary Completed 12/18/2016 Care Plan: RML ASSAY THYROID STIM HORMONE Pending 12/18/2016 Care Plan: RML ASSAY OF FREE THYROXINE Pe nding 12/18/2016 Patient Education: Patient Medication Summary Completed 10/13/2016 Care Plan: RML ASSAY OF FREE THYROXINE Pe nding 10/13/2016 Care Plan: RML ASSAY THYROID STIM HORMONE Pending 10/13/2016 Referral: Matt Garrett WPtel: [facility] [address], [facility] 1 [id number] Patient scheduled for 09/06/16 @ 1:30pm- LM for patient Appointment Confirmed 09/06/2016 Visit Diagnosis Plan: Pain in right knee Discussion: R ecommend MRI of right knee and ortho consult ICD-9 : 719.46 ICD-10 : M25.561 08/10/2016 Appointment: Dory De La Paz [facility]Ptel[facility] [phone] [facility] 08/09 confirmed-sp ACUTE ILLNESS 08/10/2016 Patient Education: Patient Medication Summary Completed 08/10/2016 Patient Education: Patient Medication Summary Completed 06/08/2016 Care Plan: RML COMPREHEN METABOLIC PANEL LOINC : 45053-9 Pending 06/08/2016 Care Plan: RML ASSAY THYROID STIM HORMONE Pending 06/08/2016 Care Plan: RML ASSAY OF FREE THYROXINE Pe nding 06/08/2016 Patient Education: Patient Medication Summary Completed 03/15/2016 Care Plan: MAMMOGRAM SCREENING LOINC : 2 6347-5 Pending 03/15/2016 Patient Education: Patient Medication Summary Completed 02/03/2016 Care Plan: RML COMPREHEN METABOLIC PANEL LOINC : 71728-1 Pending 02/03/2016 Care Plan: CBC Pending 02/03/2016 Care Plan: RML VITAMIN B-12 Pending 02/03/2016 Care Plan: ASSAY OF IRON Pending Care Plan: ANTINUCLEAR ANTIBODIES LOINC : 87587-2 Pending 02/03/2016 Visit Plan: Check CBC, TSH, free T4, CMP Discussed may need stress test if labs better and continues with ongoing fatigue Has seen Dr. Higgins and will be following up with him in February for possible liver biopsy 12/29/2015 Appointment: Dory De La Paz [facility]Ptel: [phone] [facility] 12/27 lm~sl 12/28 confirmed~slf FOLLOW UP Patient Education: Patient Medication Summary Completed 12/29/2015 Appointment: Dory De La Paz WPtel: [address] [place], [place] [phone] 11/21 patient was seen earlier~sl RESCHEDULED 11/23/2015 Visit Plan: Direct admit to the hospital 10/28/2015 Appointment: Dory De La Paz WPtel: [address] [place], [place] [phone] ACUTE ILLNESS 10/28/2015 Patient Education: Patient Medication Summary Completed 10/28/2015 Appointment: Dory De La Paz WPtel: [address] [place], [place] [phone] SPECIAL 10/25/2015 Patient Education: Patient Medication Summary Completed 10/21/2015 Care Plan: RML ASSAY THYROID STIM HORMONE Pending 10/21/2015 Care Plan: RML ASSAY OF FREE THYROXINE Pe nding 10/21/2015 Referral: David Higgins WPtel: [address] [place], [place] [phone] Referral Initiated 10/12/2015 Appointment: Dory De La Paz WPtel: [address] [place], [place] [phone] [place] INJECTION 08/17/2015 Patient Education: Patient Medication Summary Completed 08/17/2015 Visit Plan: Topical nystatin and oral ke toconazole--hold pravastatin while on Right leg strengthening exercises Trial of colestipid for diarrhea Discussed need to go back to GI and complete workup including liver biopsy 08/10/2015 Appointment: Dory De La Paz WPtel: [address] [place], [place] [phone] 08/08confirmed ~sl ACUTE ILLNESS 08/10/2015 Patient Education: Patient Medication Summary Completed 08/10/2015 Patient Education: Patient Medication Summary Completed 03/11/2015 Visit Plan: Bactrim and Bactroban Call i n 1week 12/31/2014 Appointment: Dory De La Paz WPtel: [address] [place], [place] [phone] ACUTE ILLNESS 12/31/2014 Patient Education: Patient Medication Summary Completed 12/31/2014 Visit Plan: Continue Sharon at 180mg da ana Increase Pepcid to 10mg po BID Aveeno oatmeal baths Sarna lotion Obtain TSH and Free T4 level Check fasting lab with next thyroid lab/draw Epipen and benadryl emergency kit Check Liver US 06/25/2014 Appointment: Dory De La Paz WPtel: [address] [place], [place] [phone] Annual Well Visit 06/25/2014 Patient Education: Patient Medication Summary Completed 06/25/2014 Patient Education: Patient Medication Summary Completed 03/09/2014 Appointment: Dory De La Paz WPtel: [address] [place], [place] [phone] FOLLOW UP 02/05/2014 Patient Education: Patient Medication Summary Completed 02/05/2014 Appointment: Dory De La Paz WPtel: [address] [place], [place] [phone] ACUTE ILLNESS 02/04/2014 Patient Education: Patient Medication Summary Completed 02/04/2014 Appointment: Lashon White WPtel: [address] [place], [place] [phone] FOLLOW UP 11/27/2013 Patient Education: Patient Medication Summary Completed 11/27/2013 Appointment: Lashon White WPtel: [address] [place], [place] [phone] FOLLOW UP 09/02/2013 Appointment: Lashon White WPtel: [address] [place], [place] [phone] ACUTE ILLNESS 08/15/2013 Patient Education: Patient Medication Summary Completed 08/15/2013 Visit Plan: Cryotherapy to skin tag as a timo See surgery for removal of left leg lesion--suspicious for basal cell carcinoma Check fasting lab 07/31/2013 Appointment: Dory De La Paz WPtel: [address] [place], [place] [phone] ACUTE ILLNESS 07/31/2013 Patient Education: Patient Medication Summary Completed 07/31/2013 Appointment: Rossy Bravo WPtel: [address] [place], [place] [phone] ACUTE ILLNESS 09/18/2012 Patient Education: Patient Medication Summary Completed 09/18/2012 Visit Plan: currently rates chest pain a t a 3-4 on a scale of 1-10. Pref[address] Dr. Dsouza in [place] as that is who her sees. 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 (her used to see [facility]-recently ) Pt. agrees to/prefers outpatient workup. Lengthy discussion regarding immediate ER evaluation if her symptoms worsen or change. Pt. verbalizes understanding of the need for immediate eval if symptoms worsen or change. Chest x-ray/EKG ordered at [address]. 09/13/2012 Appointment: Rossy Bravo WPtel: [address] [place], [place] [phone] ACUTE ILLNESS 09/13/2012 Patient Education: Patient Medication Summary Completed 09/13/2012 Visit Plan: Obtain most recent copies of lab from [facility] Continue meds at current dose TAC with eucerin to hands q HS Fwup pending lab results 06/06/2012 Appointment: Dory De La Paz WPtel: [phone] 06/03 06/05 left message FOLLOW UP 06/06/2012 Patient Education: Patient Medication Summary Completed 06/06/2012 Visit Plan: Change synthroid to 137mcg p o daily for next 12 wks then check thyroid lab Continue metformin at current dose with accuchecks Doxycycline 100mg 1 po BID for 10 days and restart Symbicort 03/06/2012 Appointment: Dory De La Paz WPtel: [phone] 02/14/ rescheduled pt 03/07 appt to 02/08 8 at 200...03/05 patient arrived at 2:10, CN forgot to checkin FOLLOW UP 03/06/2012 Patient Education: Patient Medication Summary Completed 03/06/2012 Visit Plan: Continue allopurinol and emilia ebrex Continue increased dose of synthroid Add Metformin ER 500mg daily and accuchecks daily alternating times Diabetic diet info given Check TSH, Free T4, uric acid in 1mo 02/05/2012 Appointment: Dory De La Paz WPtel: [address] [place], [place] [phone] 02/01- left message FOLLOW UP 02/05/2012 Patient Education: Patient Medication Summary Completed 02/05/2012 Appointment: Dory De La Paz WPtel: [address] [place], [place] [phone] ACUTE ILLNESS 01/08/2012 Patient Education: Patient Medication Summary Completed 01/08/2012 Visit Plan: Check fasting lab 11/15/2011 Appointment: Dory De La Paz WPtel: [address] [place], [place] [phone] machine message FOLLOW UP 11/15/2011 Patient Education: Patient Medication Summary Completed 11/15/2011 Visit Plan: Add daily Ca with Vit D and Vit D3 1000u daily Continue current meds Long discussion about diet and exercise and weight loss 02/08/2011 Appointment: Dory De La Paz WPtel: [address] [place], [place] [phone] FOLLOW UP 02/08/2011 Patient Education: Patient Medication Summary Completed 02/08/2011 Visit Plan: Continue current meds 05/24/2010 Appointment: Dory De La Paz WPtel: [address] [place], [place] [phone] FOLLOW UP 05/24/2010 Patient Education: Patient Medication Summary Completed 05/24/2010 Appointment: Dory De La Paz WPtel: [address] [place], [place] [phone] FOLLOW UP 05/12/2010 Visit Plan: We will check TSH, free T4, and CBC 08/09/2009 Appointment: Dory De L aPaz WPtel: [phone] [id number] FOLLOW UP 08/09/2009 Patient Education: Patient Medication Summary Completed 08/09/2009 Referral: Deon Mercado WPtel: [address] [facility] [address] [id number] [place] Referral Completed Referral: Daniel Silver WPtel: [address], [address] [id number] [place] Referral Initiated [facility]: [facility] [id number] [place] Referral Completed Referral: David Higgins WPtel: [address] [id number] [place] Referral Appointment Requested Instructions Comment Date . Supportive care. Rest, Fluids, Tyleno l/Motrin prn fever or bodyaches. Notify if worsening symptoms. 03/28/2021 . Check CBC, TSH, free T4, CMP Discussed may need stress test if labs better and continues with ongoing fatigue Has seen Dr. Higgins and will be following up with him in February for possible liver biopsy 12/29/2015 . Direct admit to the hospital 10/28/2015 . Topical nystatin and oral ketoconazole --hold pravastatin while on Right leg strengthening exercises Trial of colestipid for diarrhea Discussed need to go back to GI and complete workup including liver biopsy 08/10/2015 . Bactrim and Bactroban Call in 1week 12/31/2014 . Continue Sharon at 180mg daily Increase Pepcid to 10mg po BID Aveeno oatmeal baths Sarna lotion Obtain TSH and Free T4 level Check fasting lab with next thyroid lab/draw Epipen and benadryl emergency kit Check Liver US 06/25/2014 . Cryotherapy to skin tag as above See surgery for removal of left leg lesion--suspicious for basal cell carcinoma Check fasting lab 07/31/2013 . currently rates chest pain at a 3-4 on a scale of 1-10. [place] Dr. Dsouza in [place] as that is who her sees. 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 (her used to see Jackie-recently ) Pt. agrees to/prefers outpatient workup. Lengthy discussion regarding immediate ER evaluation if her symptoms worsen or change. Pt. verbalizes understanding of the need for immediate eval if symptoms worsen or change. Chest x-ray/EKG ordered at [facility]. 09/13/2012 . Obtain most recent copies of lab from [facility] Continue meds at current dose TAC with eucerin to hands q HS Fwup pending lab results 06/06/2012 . Change synthroid to 137mcg po daily fo r next 12 wks then check thyroid lab Continue metformin at current dose with accuchecks Doxycycline 100mg 1 po BID for 10 days and restart Symbicort 03/06/2012 HbA1C done in November 2011 was 6.0. Kaitlin nue allopurinol and celebrex Continue increased dose of synthroid Add Metformin ER 500mg daily and accuchecks daily alternating times Diabetic diet info given Check TSH, Free T4, uric acid in 1mo 02/05/2012 . Check fasting lab 11/15/2011 . Add daily Ca with Vit D and Vit D3 100 0u daily Continue current meds Long discussion about diet and exercise and weight loss 02/08/2011 . Continue current meds 05/24/2010 . We will check TSH, free T4, and CBC 08/09/2009 Medical Equipment No Medical Equipment data Health Concerns Section Health Concerns data not found Goals Section Goals data not found Interventions Section Interventions data not found Health Status Evaluations/Outcomes Section Health Status Evaluations/Outcomes data not found Advance Directives No Advance Directive data
--- OUTSIDE RECORDS SUMMARY | 2022-06-01 08:51 | XMS REPORT | Clinical Summary ---
Author Author [facility] Organization [facility] Address Unknown Phone Unavailable Care Team Providers Care Accounting Teacher Name Role Phone Unverified, Unverified Md PCP Unavailable Source Comments Some departments are not documenting in the electronic medical record. If you d o not see the information that you expected, contact Release of Information in [facility] [employer] Information Management department at [phone] for further assistan ce in locating additional records.[facility] Allergies Not on File Medications Not on file Active Problems Not on file Social History Date Tobacco Use Types Packs/Day Years Used Smoking Tobacco: Never Assessed Sex Assigned at Date Recorded Not on file Last Filed Vital Signs Not on file Plan of Treatment Health Maintenance Due Date Last Done Comments COVID-19 VACCINE (#1) 05/11/1956 DTAP/TDAP VACCINES ( - 11/09/1971 Tdap) HEPATITIS C SCREENING 11/09/1971 PHYSICAL (COMPREHENSIVE) 11/09/1971 EXAM BREAST CANCER SCREENING 1993 COLORECTAL CANCER 1998 SCREENING SHINGLES RECOMBINANT 11/09/2003 VACCINE (1 of 2) OSTEOPOROSIS 2018 SCREENING/MONITORING PNEUMOCOCCAL VACCINE (1 - 2018 PCV) INFLUENZA VACCINE (#1) 2021 DEPRESSION SCREENING 04/09/2022 Results Not on filefrom Last 3 Months Care Teams Start Date End Date Accounting Teacher Relationship Specialty 12/12/06 Unverified, Unverified, PCP - General
--- OUTSIDE RECORDS SUMMARY | 2022-06-01 08:51 | XMS REPORT | CCD ---
Author Author Mignon De La Paz D.O. Organization [facility] Address [address] [place] [phone] Phone Care Team Providers Care Hide Puller Name Role Phone Dory De La Paz D.O., PP Unavailable CCM Unavailable Summary Purpose Interface Exchange Insurance Providers Payer name Policy type / Coverage type Covered constitution party ID Effective Begin Date Effective End Date WPS MEDICARE PART B [place] Blue Cross/Blue Shield [id number] 2019 1000 Unknown [employer] Blue Cross/Blue Shield [id number] Un known Family History Family History data not found Social History Social History Element Codes Description Effective Dates Tobacco history SNOMED CT: 323253544 Never smoker 02/08/2011 Allergies, Adverse Reactions, Alerts [...] Fill Instructions Tamiflu 75 mg capsule RxNorm: 133350 Take 1 Capsule(s) Oral two times a day 04/10/2022 04/14/2022 Active spironolactone 100 mg tablet RxNorm: 442335 TAKE 1 TABL ET BY MOUTH EVERY MORNING. REPLACES 25 MG DOSE 03/09/2022 09/04/2022 Active levothyroxine 125 mcg tablet RxNorm: 731636 Take 1 Tablet(s) Oral Q D 03/09/2022 06/06/2022 Active albuterol sulfate 2.5 mg/3 mL (0.083 %) solution for n ebulization RxNorm: 043953 Take 1 Unit Dose Inhalation Q4H as needed 02/06/2022 No Stop Date Active Zithromax Z-Mian 250 mg tablet RxNorm: 220429 Take 2 Tab let(s) Oral QD then 1 daily 02/06/2022 02/10/2022 Inactive Tamiflu 75 mg capsule RxNorm: 914501 Take 1 Capsule(s) Oral two times a day 02/06/2022 02/10/2022 Inactive sertraline 100 mg tablet RxNorm: 692552 Take 1 Tablet(s) Oral QD 06/10/2022 Active amlodipine 5 mg tablet RxNorm: 061338 Take 1 Tablet(s) Oral QD 09/202106/10/2022 Active levothyroxine 125 mcg tablet RxNorm: 951858 Take 1 Tablet(s) Oral Q D 12/12/2021 12/12/2021 Inactive levothyroxine 137 mcg tablet RxNorm: 982397 Take 1 Tablet(s) Oral Q D 09/14/2021 12/12/2021 Inactive spironolactone 100 mg tablet RxNorm: 497581 TAKE 1 TABL ET BY MOUTH EVERY MORNING. REPLACES 25 MG DOSE 09/14/2021 09/14/2021 Inactive spironolactone 100 mg tablet RxNorm: 567158 TAKE 1 TABL ET BY MOUTH EVERY MORNING. REPLACES 25 MG DOSE 09/12/2021 09/12/2021 Inactive levothyroxine 125 mcg tablet RxNorm: 470215 Take 1 Tablet(s) Oral Q D 09/06/2021 09/06/2021 Inactive Patient requests 90 days s upply levothyroxine 125 mcg tablet RxNorm: 079163 Take 1 Tablet(s) Oral Q D 09/05/2021 09/05/2021 Inactive levothyroxine 125 mcg tablet RxNorm: 814277 1 Tablet(s) Oral QD 08/05/2021 Inactive levothyroxine 125 mcg tablet RxNorm: 942077 Take 1 Tablet(s) Oral Q D 08/05/2021 12/11/2021 Inactive Vitamin D3 50 mcg (2,000 unit) capsule RxNorm: 433127 1 Capsule (s) Oral QD 06/20/2021 No Stop Date Active amlodipine 5 mg tablet RxNorm: 302059 Take 1 Tablet(s) Oral QD 06/0706/20/2021 Inactive sertraline 100 mg tablet RxNorm: 976050 Take 1 tablet by mouth once daily 06/20/2021 06/20/2021 Inactive spironolactone 25 mg tablet RxNorm: 077592 1 Tablet(s) Oral two times a day 06/20/2021 06/20/2021 Inactive spironolactone 100 mg tablet RxNorm: 897493 Take 1 Tabl et(s) Oral QAM replaces 25mg dose 06/20/2021 06/20/2021 Inactive levothyroxine 137 mcg tablet RxNorm: 137543 Take 1 Tablet(s) Oral Q D 06/20/2021 08/04/2021 Inactive prednisone 20 mg tablet RxNorm: 016190 Take 1 Tablet(s) Oral two times a day for 1 week then 1 po daily until fwup 06/06/2021 06/19/2021 Inactive albuterol sulfate 1.25 mg/3 mL solution for nebulization RxN orm: 886856 3 Milliliter(s) Inhalation Q4H as needed 03/25/2021 03/25/2021 Inactive spironolactone 25 mg tablet RxNorm: 839339 TAKE 1 TABLE T BY MOUTH IN THE MORNING 01/06/2021 06/19/2021 Inactive sertraline 100 mg tablet RxNorm: 410934 Take 1 tablet by mouth once daily 01/06/2021 04/05/2021 Inactive levothyroxine 137 mcg tablet RxNorm: 244611 Take 1 Tablet(s) Oral Q D 01/06/2021 04/05/2021 Inactive amlodipine 5 mg tablet RxNorm: 207857 Take 1 Tablet(s) Oral QD 12/1004/05/2021 Inactive levothyroxine 137 mcg tablet RxNorm: 092490 Take 1 Tablet(s) Oral Q D 01/06/2021 06/05/2021 Inactive levothyroxine 137 mcg tablet RxNorm: 786553 Take 1 Tablet(s) Oral Q D 10/25/2020 01/05/2021 Inactive spironolactone 25 mg tablet RxNorm: 937576 TAKE 1 TABLE T BY MOUTH IN THE MORNING 10/11/2020 10/11/2020 Inactive amlodipine 5 mg tablet RxNorm: 190935 Take 1 Tablet(s) Oral QD 08/202010/11/2020 Inactive sertraline 100 mg tablet RxNorm: 120802 Take 1 tablet by mouth once daily 10/04/2020 10/04/2020 Inactive levothyroxine 137 mcg tablet RxNorm: 927027 1 Tablet(s) Oral QD 07/27/2020 Inactive levothyroxine 137 mcg tablet RxNorm: 690605 1 Tablet(s) Oral QD 07/26/2020 Inactive spironolactone 25 mg tablet RxNorm: 756380 TAKE 1 TABLE T BY MOUTH IN THE MORNING 07/04/2020 07/04/2020 Inactive Zoloft 100 mg tablet RxNorm: 640694 Take 1 tablet by mouth once daily 07/04/2020 07/04/2020 Inactive levothyroxine 125 mcg tablet RxNorm: 319411 1 Tablet(s) Oral QD 04/25/2020 Inactive levothyroxine 125 mcg tablet RxNorm: 182622 1 Tablet(s) Oral QD Replaces Synthroid 04/26/2020 07/25/2020 Inactive amlodipine 5 mg tablet RxNorm: 953854 TAKE 1 TABLET BY MOUTH ON CE DAILY Oral 04/19/2020 04/19/2020 Inactive Zoloft 100 mg tablet RxNorm: 556044 Take 1 tablet by mouth once daily 04/05/2020 07/03/2020 Inactive spironolactone 25 mg tablet RxNorm: 208043 TAKE 1 TABLE T BY MOUTH IN THE MORNING 04/05/2020 07/03/2020 Inactive mesalamine 1.2 gram tablet,delayed release RxNorm: 070113 2 Tab let(s) Oral QD 01/05/2020 04/13/2020 Inactive amlodipine 5 mg tablet RxNorm: 201292 TAKE 1 TABLET BY MOUTH ON CE DAILY 10/20/2019 04/18/2020 Inactive spironolactone 25 mg tablet RxNorm: 491852 1 Tablet(s) Oral QAM 04/02/2020 Inactive colestipol 1 gram tablet RxNorm: 5750857 1 Tablet(s) Oral QD 201906/05/2021 Inactive Zoloft 100 mg tablet RxNorm: 042456 1 Tablet(s) Oral QD 10/01/2019 Inactive amlodipine 5 mg tablet RxNorm: 004230 TAKE 1 TABLET BY MOUTH ON CE DAILY 04/21/2019 10/19/2019 Inactive Synthroid 125 mcg tablet RxNorm: 386245 1 Tablet(s) Oral QD DAW1 04/25/2020 Inactive spironolactone 25 mg tablet RxNorm: 460653 1 Tablet(s) Oral QAM 10/05/2019 Inactive spironolactone 50 mg tablet RxNorm: 507224 TAKE 1 TABLE T BY MOUTH ONCE DAILY IN THE MORNING 03/30/2019 04/07/2019 Inactive prednisone 10 mg tablet RxNorm: 790497 1 Tablet(s) Oral two brie es a day 01/06/2019 01/09/2019 Inactive albuterol sulfate 1.25 mg/3 mL solution for nebulization RxN orm: 285356 3 Milliliter(s) Inhalation Q4H as needed 01/06/2019 09/19/2020 Inactive Tessalon Perles 100 mg capsule RxNorm: 564004 1 Capsule(s) Oral Q8H as needed 01/06/2019 04/07/2019 Inactive spironolactone 50 mg tablet RxNorm: 442772 TAKE 1 TABLE T BY MOUTH ONCE DAILY IN THE MORNING 12/23/2018 03/29/2019 Inactive spironolactone 50 mg tablet RxNorm: 881929 1 Tablet(s) PO QAM 09/1912/17/2018 Inactive Synthroid 125 mcg tablet RxNorm: 701454 1 Tablet(s) PO QD DAW09/201803/10/2019 Inactive Zoloft 100 mg tablet RxNorm: 013387 1 Tablet(s) PO QD 09/11/201804/2018 Inactive Synthroid 125 mcg tablet RxNorm: 007123 1 Tablet(s) PO QD DAW08/0709/11/2018 Inactive spironolactone 50 mg tablet RxNorm: 591541 1 Tablet(s) PO QAM 07/1009/07/2018 Inactive Synthroid 125 mcg tablet RxNorm: 636370 1 Tablet(s) PO QD 04/201808/18/2018 Inactive oseltamivir 75 mg capsule RxNorm: 586855 1 Capsule(s) PO QD 019 06/19/2018 Inactive spironolactone 50 mg tablet RxNorm: 338147 1 Tablet(s) PO QAM 06/1007/09/2018 Inactive amlodipine 5 mg tablet RxNorm: 382626 1 Tablet(s) PO QD 06/10/2018 Inactive Synthroid 125 mcg tablet RxNorm: 291565 1 Tablet(s) PO QD 07/201807/07/2018 Inactive Synthroid 125 mcg tablet RxNorm: 601190 1 Tablet(s) PO QD 05/1106/09/2018 Inactive Zoloft 100 mg tablet RxNorm: 858934 TAKE 1 TABLET BY MOUTH ONCE DAILY 05/30/2018 04/07/2019 Inactive Zoloft 100 mg tablet RxNorm: 357964 1 Tablet(s) PO QD 05/29/201808/08 Inactive Zoloft 100 mg tablet RxNorm: 057011 TAKE 1 TABLET BY MOUTH ONCE DAILY 02/20/2018 05/28/2018 Inactive potassium chloride ER 20 mEq tablet,extended release RxNorm: 741581 1 Tablet(s) PO TID 11/26/2017 06/09/2018 Inactive potassium chloride ER 20 mEq tablet,extended release RxNorm: 894482 1 Tablet(s) PO QD 11/19/2017 11/25/2017 Inactive Synthroid 125 mcg tablet RxNorm: 172522 1 Tablet(s) PO QD DAW1 10/0704/14/2018 Inactive potassium chloride ER 20 mEq tablet,extended release RxNorm: 403472 1 Tablet(s) PO QD 10/17/2017 10/16/2017 Inactive potassium chloride ER 20 mEq tablet,extended release RxNorm: 942848 1 Tablet(s) PO QD 10/17/2017 11/15/2017 Inactive Synthroid 125 mcg tablet RxNorm: 102447 1 Tablet(s) PO QD DAW NEEDS UPDATED LABS 10/01/2017 10/14/2017 Inactive hydrochlorothiazide 25 mg tablet RxNorm: 844572 1 Table t(s) PO QD replaces lasix and potassium 09/04/2017 06/09/2018 Inactive Toprol XL 50 mg tablet,extended release RxNorm: 410895 1 Tablet (s) PO QD 08/23/2017 06/09/2018 Inactive Synthroid 125 mcg tablet RxNorm: 520013 1 Tablet(s) PO QD DAW1 NEEDS UPDATED LABS 08/23/2017 10/01/2017 Inactive Zoloft 100 mg tablet RxNorm: 825543 1 Tablet(s) PO QD 08/20/201712/2017 Inactive Lasix 40 mg tablet RxNorm: 187543 1 Tablet(s) PO QAM 08/16/201709/03 Inactive potassium chloride ER 20 mEq tablet,extended release RxNorm: 948508 1 Tablet(s) PO QD 08/16/2017 09/03/2017 Inactive Toprol XL 50 mg tablet,extended release RxNorm: 793960 Tablet(s) TAKE ONE TABLET BY MOUTH ONCE DAILY 07/30/2017 08/23/2017 Inactive Toprol XL 50 mg tablet,extended release RxNorm: 164702 TAKE ONE TABLET BY MOUTH ONCE DAILY 06/28/2017 07/30/2017 Inactive Synthroid 125 mcg tablet RxNorm: 417112 1 Tablet(s) PO QD DAW1 05/1008/23/2017 Inactive Synthroid 125 mcg tablet RxNorm: 394025 1 Tablet(s) PO QD DAW04/0905/23/2017 Inactive Synthroid 125 mcg tablet RxNorm: 176941 1 Tablet(s) PO QD DAW08/201604/23/2017 Inactive Toprol XL 50 mg tablet,extended release RxNorm: 383929 1 Tablet (s) PO QD 03/12/2017 06/09/2017 Inactive levothyroxine 125 mcg tablet RxNorm: 802944 1 Tablet(s) PO QD P lease get labs 03/05/2017 03/12/2017 Inactive cancel any refills o n any other strengths Zoloft 100 mg tablet RxNorm: 058636 1 Tablet(s) PO QD 02/05/201707/09 Inactive levothyroxine 125 mcg tablet RxNorm: 858273 1 Tablet(s) PO QD 12/2512/24/2016 Inactive cancel any refills on any ot her strengths levothyroxine 125 mcg tablet RxNorm: 790572 1 Tablet(s) PO QD 12/2503/05/2017 Inactive cancel any refills on any ot her strengths Toprol XL 50 mg tablet,extended release RxNorm: 365093 1 Tablet (s) PO QD 12/05/2016 03/12/2017 Inactive levothyroxine 137 mcg tablet RxNorm: 494344 1 Tablet(s) PO QD 10/1610/15/2016 Inactive levothyroxine 137 mcg tablet RxNorm: 123995 1 Tablet(s) PO QD 10/1612/24/2016 Inactive levothyroxine 150 mcg tablet RxNorm: 479329 1 Tablet(s) PO QD Due for repeat labs 09/06/2016 06/09/2018 Inactive Toprol XL 50 mg tablet,extended release RxNorm: 470396 1 Tablet (s) PO QD 08/29/2016 11/26/2016 Inactive levothyroxine 150 mcg capsule RxNorm: 282794 1 Capsule(s) PO QD 10/15/2016 Inactive Toprol XL 50 mg tablet,extended release RxNorm: 252918 1 Tablet (s) PO QD 05/25/2016 08/29/2016 Inactive levothyroxine 137 mcg tablet RxNorm: 984372 1 Tablet(s) PO QD 05/0507/04/2016 Inactive replaces brand Synthroid 137 mcg Zoloft 100 mg tablet RxNorm: 211460 1 Tablet(s) PO QD 03/21/201601/09 Inactive levothyroxine 137 mcg tablet RxNorm: 990487 1 Tablet(s) PO QD 02/2302/23/2016 Inactive levothyroxine 137 mcg tablet RxNorm: 790619 1 Tablet(s) PO QD 02/2304/23/2016 Inactive replaces brand Synthroid 137 mcg Synthroid 137 mcg tablet RxNorm: 393767 1 Tablet(s) PO QD DAW1- -brand only 02/14/2016 02/23/2016 Inactive Toprol XL 50 mg tablet,extended release RxNorm: 950373 1 Tablet (s) PO QD 02/03/2016 05/02/2016 Inactive Synthroid 137 mcg tablet RxNorm: 089739 1 Tablet(s) PO QD DAW1- -brand only 01/13/2016 02/13/2016 Inactive Zoloft 100 mg tablet RxNorm: 795090 1 Tablet(s) PO QD 12/07/201503/09 Inactive Synthroid 137 mcg tablet RxNorm: 472017 1 Tablet(s) PO QD DAW1- -brand only 11/24/2015 12/23/2015 Inactive Toprol XL 50 mg tablet,extended release RxNorm: 586510 1 Tablet (s) PO QD 10/26/2015 01/23/2016 Inactive Synthroid 137 mcg tablet RxNorm: 065549 1 Tablet(s) PO QD DAW1- -brand only 10/26/2015 11/23/2015 Inactive levothyroxine 137 mcg tablet RxNorm: 205381 1 Tablet(s) PO QD DAW1-Brand Name only 10/26/2015 11/23/2015 Inactive ketoconazole 200 mg tablet RxNorm: 499952 1 Tablet(s) PO QD 016 08/23/2015 Inactive colestipol 1 gram tablet RxNorm: 8693459 1 Tablet(s) PO BID 016 09/08/2015 Inactive nystatin 100,000 unit/gram topical cream RxNorm: 751357 Application TOP BID to rash 08/10/2015 08/09/2016 Inactive levothyroxine 137 mcg tablet RxNorm: 679192 1 Tablet(s) PO QD 07/1910/25/2015 Inactive Toprol XL 50 mg tablet,extended release RxNorm: 754033 1 Tablet (s) PO QD 07/15/2015 10/26/2015 Inactive Zoloft 100 mg tablet RxNorm: 798275 1 Tablet(s) PO QD 05/07/201510/08 Inactive levothyroxine 137 mcg tablet RxNorm: 853632 1 Tablet(s) PO QD 04/0807/19/2015 Inactive prednisone 20 mg tablet RxNorm: 944217 1 Tablet(s) PO BID 01/07/2015 01/06/2015 Inactive prednisone 20 mg tablet RxNorm: 398683 1 Tablet(s) PO BID 01/07/2015 01/13/2015 Inactive Bactroban 2 % topical ointment RxNorm: 731188 Application TOP BID 0 12/31/2014 08/09/2015 Inactive levothyroxine 137 mcg tablet RxNorm: 576805 1 Tablet(s) PO QD 12/3104/08/2015 Inactive Bactrim DS 800 mg-160 mg tablet RxNorm: 896995 1 Tablet(s) PO BID 0 12/31/2014 01/13/2015 Inactive Toprol XL 50 mg tablet,extended release RxNorm: 857963 1 Tablet (s) PO QD 12/11/2014 07/15/2015 Inactive Toprol XL 50 mg tablet,extended release RxNorm: 017161 1 Tablet (s) PO QD 09/01/2014 11/29/2014 Inactive levothyroxine 150 mcg tablet RxNorm: 463771 1 Tablet(s) PO QD 08/0412/30/2014 Inactive levothyroxine 175 mcg tablet RxNorm: 707488 1 Tablet(s) PO QD 07/2412/30/2014 Inactive EpiPen 2-Mian 0.3 mg/0.3 mL (1:1,000) injection,auto-injector RxNorm: 014554 1 Unit Dose IM as needed for severe anaphylactic reaction 06/25/201406/2016 Inactive Toprol XL 50 mg tablet,extended release RxNorm: 678046 1 Tablet (s) PO QD 05/18/2014 09/01/2014 Inactive levothyroxine 150 mcg tablet RxNorm: 686038 1 Tablet(s) PO QD 03/2606/23/2014 Inactive levothyroxine 150 mcg capsule RxNorm: 221733 1 Capsule(s) PO QD 07/201303/25/2014 Inactive levothyroxine 150 mcg capsule RxNorm: 263209 1 Capsule(s) PO QD 07/201303/11/2014 Inactive Zoloft 100 mg tablet RxNorm: 425412 1 Tablet(s) PO QD 03/09/201404/10 Inactive Zoloft 100 mg tablet RxNorm: 122079 1 Tablet(s) PO QD 03/09/201402/09 Inactive prednisone 20 mg tablet RxNorm: 665554 1 Tablet(s) PO BID 02/05/2014 02/09/2014 Inactive doxycycline hyclate 100 mg capsule RxNorm: 836840 1 Capsule(s) PO BID 02/05/2014 02/14/2014 Inactive cefuroxime axetil 500 mg tablet RxNorm: 790954 1 Tablet(s) PO BID 0 11/27/2013 12/06/2013 Inactive Toprol XL 50 mg tablet,extended release RxNorm: 283477 1 Tablet (s) PO QD 11/27/2013 05/18/2014 Inactive Zoloft 100 mg tablet RxNorm: 883377 1 Tablet(s) PO QD 10/27/201304/2013 Inactive hydrochlorothiazide 25 mg tablet RxNorm: 561393 1 Tablet(s) PO QD 0 09/10/2013 06/24/2014 Inactive Bystolic 5 mg tablet RxNorm: 984481 1 Tablet(s) PO QD 09/10/201310/08 Inactive levothyroxine 137 mcg tablet RxNorm: 957092 1 Tablet(s) PO QD 08/2812/28/2013 Inactive hydrochlorothiazide 25 mg tablet RxNorm: 440722 1 Tablet(s) PO QD 0 08/15/2013 09/09/2013 Inactive pravastatin 40 mg tablet RxNorm: 687649 1 Tablet(s) PO QD 07/31/2013 06/24/2014 Inactive levothyroxine 137 mcg tablet RxNorm: 247183 1 Tablet(s) PO QD Needs updated thyroid labs 06/27/2013 07/26/2013 Inactive levothyroxine 137 mcg tablet RxNorm: 715740 1 Tablet(s) PO QD Needs updated thyroid labs 05/06/2013 06/04/2013 Inactive Zoloft 100 mg tablet RxNorm: 451938 1 Tablet(s) PO QD 04/10/201309/09 Inactive levothyroxine 137 mcg tablet RxNorm: 756210 1 Tablet(s) PO QD 02/0605/06/2013 Inactive levothyroxine 137 mcg tablet RxNorm: 812876 1 Tablet(s) PO QD 11/1901/17/2013 Inactive Levothroid 137 mcg tablet RxNorm: 622434 1 Tablet(s) PO QD 11/20/19 13 11/19/2012 Inactive Zoloft 100 mg tablet RxNorm: 425593 1 Tablet(s) PO QD 09/25/201203/09 Inactive Culturelle 10 billion cell capsule RxNorm: 298979 1 Cap fadia(s) PO BID while experincing diarrhea 09/18/2012 09/24/2012 Inactive Zoloft 100 mg tablet RxNorm: 427857 1 Tablet(s) PO QD 06/24/201209/07 Inactive lisinopril-hydrochlorothiazide 10 mg-12.5 mg tablet RxNorm: 278098 1 Tablet(s) PO QD 06/24/2012 08/14/2013 Inactive allopurinol 100 mg tablet RxNorm: 362365 1 Tablet(s) PO QD 06/25/19 13 07/30/2013 Inactive metformin ER 500 mg tablet,extended release 24 hr RxNorm: 86 0975 1 Tablet(s) PO QD for BS 05/07/2012 07/30/2013 Inactive allopurinol 100 mg tablet RxNorm: 057496 1 Tablet(s) PO QD 04/16/19 13 06/14/2012 Inactive Zoloft 100 mg tablet RxNorm: 369220 1 Tablet(s) PO QD 03/20/201203/09 Inactive Zoloft 100 mg tablet RxNorm: 461294 1 Tablet(s) PO QD 03/20/201206/07 Inactive doxycycline hyclate 100 mg capsule RxNorm: 5746554 1 Capsule(s) PO BID 03/06/2012 03/15/2012 Inactive doxycycline hyclate 100 mg capsule RxNorm: 8081579 1 Capsule(s) PO BID 03/06/2012 03/05/2012 Inactive Zoloft 50 mg tablet RxNorm: 066786 1 Tablet(s) PO QD 02/05/201203/19 Inactive Celebrex 200 mg capsule RxNorm: 632190 1 Capsule(s) PO BID for pain--replaces naproxen 02/05/2012 03/05/2012 Inactive metformin ER 500 mg tablet,extended release 24 hr RxNorm: 86 0977 1 Tablet(s) PO QD for BS 02/05/2012 05/07/2012 Inactive allopurinol 100 mg tablet RxNorm: 735347 1 Tablet(s) PO QD 02/05/2004/16/2012 Inactive allopurinol 100 mg tablet RxNorm: 746129 1 Tablet(s) PO QD 01/10/2001/09/2012 Inactive allopurinol 100 mg tablet RxNorm: 627051 1 Tablet(s) PO QD 01/10/2002/04/2012 Inactive levothyroxine 137 mcg tablet RxNorm: 601823 1 Tablet(s) PO QD 01/0902/04/2012 Inactive levothyroxine 137 mcg tablet RxNorm: 981582 1 Tablet(s) PO QD 01/0901/09/2012 Inactive Celebrex 200 mg capsule RxNorm: 628418 1 Capsule(s) PO BID for pain--replaces naproxen 01/08/2012 02/04/2012 Inactive lisinopril-hydrochlorothiazide 10 mg-12.5 mg tablet RxNorm: 899421 1 Tablet(s) PO QD 12/14/2011 06/10/2012 Inactive levothyroxine 125 mcg Tab RxNorm: 926291 1 Tablet(s) PO QD 11/21/1911/20/2011 Inactive levothyroxine 125 mcg Tab RxNorm: 235961 1 Tablet(s) PO QD 11/21/1901/09/2012 Inactive lisinopril-hydrochlorothiazide 10 mg-12.5 mg tablet RxNorm: 570688 1 Tablet(s) PO QD 06/14/2011 12/10/2011 Inactive levothyroxine 112 mcg Tab RxNorm: 738037 1 Tablet(s) PO QAM 011 11/20/2011 Inactive lisinopril-hydrochlorothiazide 10 mg-12.5 mg Tab RxNorm: 197 885 1 Tablet(s) PO QD 09/12/2010 06/14/2011 Inactive levothyroxine 112 mcg Tab RxNorm: 905494 1 Tablet(s) PO QAM 011 02/07/2011 Inactive Zoloft 50 mg Tab RxNorm: 052793 1 Tablet(s) PO QD 05/24/2010 11/20/19 11 Inactive levothyroxine 112 mcg Cap RxNorm: 302973 1 Capsule(s) PO 04/26/2010 0 05/23/2010 Inactive levothyroxine 100 mcg Tab RxNorm: 002108 1 Tablet(s) PO QD 04/25/19 11 04/25/2010 Inactive lisinopril-hydrochlorothiazide 10 mg-12.5 mg Tab RxNorm: 197 885 1 Tablet(s) PO QD 12/06/2009 09/01/2010 Inactive levothyroxine 100 mcg Tab RxNorm: 737388 1 Tablet(s) PO QD 10/26/19 10 04/22/2010 Inactive Vitamin D3 1,000 unit capsule RxNorm: 639239 1 Capsule(s) PO QD 06/24/2014 Inactive levothyroxine 112 mcg Tab RxNorm: 575522 1 Tablet(s) PO QAM 011 05/23/2010 Inactive triamcinolone acetonide 0.1 % Topical Cream RxNorm: 0890353 Appl ication TOP [facility] 07/31/2013 07/30/2013 Inactive colestipol 1 gram tablet RxNorm: 7726336 1 Tablet(s) PO BID 017 08/09/2016 Inactive Zoloft 50 mg tablet RxNorm: 120687 1 Tablet(s) PO QD 02/05/201202/03 Inactive levothyroxine 150 mcg capsule RxNorm: 618463 1 Capsule(s) PO QD 07/04/2016 Inactive Vitamin C ER 1,000 mg tablet,extended release RxNorm: 773849 1 Tablet(s) PO QD 08/10/2015 08/09/2015 Inactive levothyroxine 150 mcg capsule RxNorm: 026091 1 Capsule(s) PO QD 07/201303/11/2014 Inactive Levothyroxine 100 mcg Tab RxNorm: 924725 1 Tablet(s) PO QD 10/26/19 10 10/24/2009 Inactive Synthroid 125 mcg tablet RxNorm: 777800 1 Tablet(s) PO QD 08/201603/12/2017 Inactive Fish Oil 1,000 mg capsule RxNorm: 1 Capsule(s) PO QD 06/25/2014 Inactive FreeStyle Test strips RxNorm: Miscellaneous QD 06/25/2014 06/24/2014 Inactive Sharon Allergy 180 mg tablet RxNorm: 161989 1 Tablet(s) PO QD 08/0708/15/2017 Inactive vitamin E (dl, acetate) 400 unit capsule RxNorm: 674949 1 Capsu le(s) PO QD 08/10/2015 08/09/2015 Inactive metformin 500 mg tablet RxNorm: 817263 1 Tablet(s) PO QD 06/25/2014 0 06/24/2014 Inactive naproxen 500 mg tablet RxNorm: 164738 1 Tablet(s) PO BID as nee ded for pain 01/08/2012 01/07/2012 Inactive ursodiol 300 mg capsule RxNorm: 576432 2 Capsule(s) PO QAM and 3 capsules in the evening (Dr Higgins) 08/10/2016 08/09/2016 Inactive Vitamin B12 1000mcg Tablet RxNorm: 1 Tablet(s) PO QD 05/24/2010 Inactive Toprol XL 50 mg tablet,extended release RxNorm: 504267 1 Tablet (s) PO QD 11/27/2013 11/26/2013 Inactive Calcium with Vitamin D 600 mg (1,500 mg)-400 unit tablet RxN orm: 463668 1 Tablet(s) PO QD 07/31/2013 07/30/2013 Inactive levothyroxine 175 mcg tablet RxNorm: 995471 1 Tablet(s) PO QD 07/2407/23/2014 Inactive Synthroid 137 mcg tablet RxNorm: 167683 1 Tablet(s) PO QD 10/26/2015 10/25/2015 Inactive Pepcid AC 10 mg tablet RxNorm: 653996 1 Tablet(s) PO QD 08/10/2015 Inactive pravastatin 40 mg tablet RxNorm: 916728 1 Tablet(s) PO QD 08/10/2016 08/09/2016 Inactive levothyroxine 137 mcg tablet RxNorm: 816781 1 Tablet(s) PO QD 12/3112/30/2014 Inactive amlodipine 5 mg tablet RxNorm: 082190 1 Tablet(s) PO QD 06/10/2018 Inactive Lisinopril-Hydrochlorothiazide [...] Result Date S ervice Location COMPREHENSIVE METABOLIC 18246 AST 24 U/L 2012 Unknown COM[facility] METABOLIC 23299 ALT 39 IU/L 2012 Unknown COMPREHENSIVE METABOLIC 30876 BUN 25 MG/DL 2012 Unknown COM[facility] MET[facility] 72309 ALBUMIN 4.7 GM/DL 2012 Unknown COMPRE[facility]ENS[facility] METABOLIC 48365 CHLORIDE 101 MMOL/L 09/18 Unknown COMPREHENSIVE METABOLIC 02817 BILI TOT 0.3 MG/DL 2012 Unknown COMPREHENSIVE METABOLIC 91736 ALK PHOS 116 U/L 2012 Unknown COMPREHENSIVE METABOLIC 15328 SODIUM 136 MMOL/L 09/18 Unknown COMPREHENSIVE METABOLIC 36536 CREATININE 1.11 MG/DL 09/07 Unknown [facility]ENS[facility] MET[facility]OLIC 50040 CALCIUM 9.2 MG/DL 2012 Unknown COMPREHENSIVE METABOLIC 63585 POTASSIUM 3.6 MMOL/L 09/18 Unknown COMPREHENSIVE METABOLIC 23962 PROT TOT 7.2 GM/DL 2012 Unknown COMPREHENSIVE METABOLIC 43214 Glucose 104 MG/DL 2012 Unknown COMPREHENSIVE METABOLIC 19483 BICARB 27 MMOL/L 2012 Unknown COMPREHENSIVE METABOLIC 60754 ANION GAP 8 MEQ/L 2012 Unknown GFR CALC 5009807 GFR AA >60 ML/MIN 09/18/2012 Unknown GFR CALC [id number] GFR NON-AA 50.0L ML/MIN 09/18/2012 Unkno wn ERYTHROCYTE SEDIMENTATION RATE 04872 ESR 34 MM/HR 09/18/2012 Unknown COMPLETE BLOOD COUNT [id number] WBC 5.6 10e9/L 09/19/19 13 Unknown COMPLETE BLOOD COUNT [id number] RBC 4.43 10e12/L 2012 Unknown COMPLETE BLOOD COUNT [id number] HGB 13.7 g/dL 3 Unknown COMPLETE BLOOD COUNT [id number] HCT DET 40.1 % 3 Unknown COMPLETE BLOOD COUNT [id number] MCV 90.5 fL 3 Unknown COMPLETE BLOOD COUNT [id number] MCH 30.9 pg 3 Unknown COMPLETE BLOOD COUNT [id number] MCHC 34.2 g/dL 3 Unknown COMPLETE BLOOD COUNT [id number] PLT 275 10e9/L 09/19/19 13 Unknown COMPLETE BLOOD COUNT [id number] MPV 9.8 fL 3 Unknown COMPLETE BLOOD COUNT [id number] WYATT % 61.8 % 3 Unknown COMPLETE BLOOD COUNT 0507340 LY % 20.4 % 3 Unknown COMPLETE BLOOD COUNT [id number] MON % 15.6 % 3 Unknown COMPLETE BLOOD COUNT [id number] EOS % 1.8 % 3 Unknown COMPLETE BLOOD COUNT [id number] BASO % 0.4 % 3 Unknown COMPLETE BLOOD COUNT [id number] RDW 13.4 % 3 Unknown COMPLETE BLOOD COUNT [id number] ABS WYATT 3.46 10e9/L 013 Unknown COMPLETE BLOOD COUNT [id number] ABS LYMPH 1.14 10e9/L 013 Unknown COMPLETE BLOOD COUNT [id number] ABS MONO 0.87 10e9/L 013 Unknown COMPLETE BLOOD COUNT [id number] ABS EOS 0.10 10e9/L 013 Unknown COMPLETE BLOOD COUNT [id number] ABS BASO 0.02 10e9/L 013 Unknown COMPLETE BLOOD COUNT [id number] RDW-SD 43.6 fL 3 Unknown Procedures Procedure Codes Date SARSCOV & INF VIR A&B AG [place] CPT-4: 75707 04/10/2022 SARSCOV & INF VIR A&B AG IA CPT-4: 56215 02/06/2022 DESTRUCT B9 LESION 1-14 CPT-4: 23479 10/03/2021 THER/PROPH/DIAG INJ SC/IM CPT-4: 96966 03/29/2021 TRIAMCINOLONE ACET INJ NOS CPT-4: J3301 03/29/2021 SARSCOV & INF VIR A&B AG IA CPT-4: 62278 03/28/2021 THER/PROPH/DIAG INJ SC/IM CPT-4: 14477 03/28/2021 METHYLPREDNISOLONE INJECTION CPT-4: J2930 03/28/2021 IMMUNIZATION ADMIN CPT-4: 00055 01/19/2021 PNEUMOCOCCAL VACC 23 IRIS IM CPT-4: 88230 01/19/2021 DESTRUCT B9 LESION 1-14 CPT-4: 86522 01/06/2021 DESTRUCT B9 LESION 1-14 CPT-4: 10722 09/20/2020 ADMIN PNEUMOCOCCAL VACCINE CPT-4: G0009 01/14/2020 PNEUMOCOCCAL VACC 13 IRIS IM CPT-4: 81264 01/14/2020 THER/PROPH/DIAG INJ SC/IM CPT-4: 96203 08/17/2015 TRIAMCINOLONE ACET INJ NOS CPT-4: J3301 08/17/2015 CEFTRIAXONE SODIUM INJECTION CPT-4: J0696 02/05/2014 THER/PROPH/DIAG INJ SC/IM CPT-4: 62017 02/05/2014 CEFTRIAXONE SODIUM INJECTION CPT-4: J0696 02/04/2014 THER/PROPH/DIAG INJ SC/IM CPT-4: 55745 02/04/2014 THER/PROPH/DIAG INJ SC/IM CPT-4: 56088 02/04/2014 METHYLPREDNISOLONE 40 MG INJ CPT-4: J1030 02/04/2014 TRIAMCINOLONE ACET INJ NOS CPT-4: J3301 02/04/2014 THER/PROPH/DIAG INJ SC/IM CPT-4: 56469 08/15/2013 METHYLPREDNISOLONE 40 MG INJ CPT-4: J1030 08/15/2013 TRIAMCINOLONE ACET INJ NOS CPT-4: J3301 08/15/2013 REMOVAL OF SKIN TAGS <W/15 CPT-4: 34951 07/31/2013 Vital Signs Date Vital 04/10/2022 Blood Pressure 1: 132/77 Code: 8480-6 Heart Rate 1: 76 bpm Height: Code: 8302-2 SpO2: 96% Temperature: 36.6 (C) / 97.9 (F) Weight: Code: 32729-7 10/03/2021 Blood Pressure 1: 134/78 Code: 8480-6 Heart Rate 1: 85 bpm Respiratory Rate: 18 bpm SpO2: 96% Temperature: 36.5 (C) / 97.7 (F) We ight: 232 lbs Code: 86920-4 06/20/2021 Blood Pressure 1: 130/80 Code: 8480-6 Heart Rate 1: 80 bpm Respiratory Rate: 19 bpm SpO2: 96% Temperature: 36.3 (C) / 97.3 (F) We ight: 238 lbs Code: 37049-3 06/06/2021 Blood Pressure 1: 132/84 Code: 8480-6 BMI: 39.6 Code: 00308-4 Heart Rate 1: 76 bpm Height: 5'5" Code: 8302-2 Respiratory Rate: 20 bpm SpO2: 97% Temperature: 36.6 (C) / 97.9 (F) Weight: 238 lbs Code: 33316-4 03/29/2021 Blood Pressure 1: 130/78 Code: 8480-6 Heart Rate 1: 80 bpm Respiratory Rate: 20 bpm SpO2: 98% Temperature: 36.7 (C) / 98.1 (F) 03/28/2021 Blood Pressure 1: 132/76 Code: 8480-6 Heart Rate 1: 101 bpm Respiratory Rate: 17 bpm SpO2: 97% Temperature: 36.6 (C) / 97.8 (F) We ight: 240 lbs Code: 59415-0 01/06/2021 Blood Pressure 1: 132/82 Code: 8480-6 Heart Rate 1: 76 bpm Respiratory Rate: 20 bpm SpO2: 98% Temperature: 36.8 (C) / 98.3 (F) We ight: 242 lbs Code: 23423-0 09/20/2020 Blood Pressure 1: 130/84 Code: 8480-6 Heart Rate 1: 68 bpm Respiratory Rate: 20 bpm SpO2: 98% Temperature: 36.9 (C) / 98.4 (F) We ight: 237 lbs Code: 80470-9 04/14/2020 Blood Pressure 1: 130/72 Code: 8480-6 Heart Rate 1: 66 bpm Respiratory Rate: 15 bpm Temperature: 36.6 (C) / 97.9 (F) Weight: 237 lbs Code : 31076-1 01/05/2020 Blood Pressure 1: 132/84 Code: 8480-6 Heart Rate 1: 72 bpm Respiratory Rate: 20 bpm SpO2: 95% Temperature: 36.3 (C) / 97.3 (F) We ight: 238 lbs Code: 13340-1 10/01/2019 Blood Pressure 1: 126/82 Code: 8480-6 Heart Rate 1: 76 bpm Respiratory Rate: 20 bpm SpO2: 95% Temperature: 36.8 (C) / 98.2 (F) We ight: 238 lbs Code: 12171-5 04/08/2019 Blood Pressure 1: 126/84 Code: 8480-6 Heart Rate 1: 88 bpm Respiratory Rate: 20 bpm SpO2: 98% Temperature: 36.9 (C) / 98.5 (F) We ight: 233 lbs Code: 34788-1 01/06/2019 Blood Pressure 1: 132/82 Code: 8480-6 Heart Rate 1: 87 bpm SpO2: 97% Temperature: 36.5 (C) / 97.7 (F) Weight: 232 lbs Code: 24578-2 12/30/2018 Blood Pressure 1: 122/82 Code: 8480-6 Heart Rate 1: 76 bpm Respiratory Rate: 20 bpm SpO2: 96% Temperature: 37.0 (C) / 98.6 (F) We ight: 237 lbs Code: 99540-3 07/08/2018 Blood Pressure 1: 134/86 Code: 8480-6 Heart Rate 1: 72 bpm Respiratory Rate: 20 bpm SpO2: 96% Temperature: 36.8 (C) / 98.2 (F) We ight: 241 lbs Code: 11285-8 06/10/2018 Blood Pressure 1: 142/90 Code: 8480-6 BMI: 40.6 Code: 63517-1 Heart Rate 1: 80 bpm Height: 5'5" Code: 8302-2 Respiratory Rate: 20 bpm SpO2: 96% Temperature: 37.0 (C) / 98.6 (F) Weight: 244 lbs Code: 32864-7 09/04/2017 Blood Pressure 1: 142/86 Code: 8480-6 BMI: 40.1 Code: 45175-9 Heart Rate 1: 76 bpm Height: 5'5" Code: 8302-2 Respiratory Rate: 20 bpm SpO2: 96% Temperature: 36.7 (C) / 98.0 (F) Weight: 241 lbs Code: 71130-3 08/16/2017 Blood Pressure 1: 136/94 Code: 8480-6 Heart Rate 1: 76 bpm Respiratory Rate: 20 bpm SpO2: 94% Temperature: 36.8 (C) / 98.2 (F) We ight: 245 lbs Code: 20294-3 08/10/2016 Blood Pressure 1: 142/92 Code: 8480-6 BMI: 39.8 Code: 69858-8 Heart Rate 1: 72 bpm Height: 5'5" Code: 8302-2 Respiratory Rate: 20 bpm Temperatu re: 36.6 (C) / 97.8 (F) Weight: 239 lbs Code: 27982-1 12/29/2015 Blood Pressure 1: 126/80 Code: 8480-6 Heart Rate 1: 76 bpm Height: Code: 8302-2 Respiratory Rate: 20 bpm Temperature: 36.9 (C) / 98.5 (F) We ight: Code: 20572-5 10/28/2015 Blood Pressure 1: 136/78 Code: 8480-6 Heart Rate 1: 106 bpm Height: Code: 8302-2 Respiratory Rate: 24 bpm SpO2: 92% Temperature: 37 .8 (C) / 100.0 (F) Weight: Code: 21094-3 08/10/2015 Blood Pressure 1: 134/92 Code: 8480-6 Heart Rate 1: 80 bpm Respiratory Rate: 20 bpm Temperature: 36.8 (C) / 98.2 (F) Weight: 244 lbs Code : 17009-4 12/31/2014 Blood Pressure 1: 132/90 Code: 8480-6 BMI: 39.8 Code: 73522-3 Heart Rate 1: 80 bpm Height: 5'5" Code: 8302-2 Respiratory Rate: 20 bpm Temperatu re: 37.0 (C) / 98.6 (F) Weight: 239 lbs Code: 34224-4 06/25/2014 Blood Pressure 1: 126/84 Code: 8480-6 BMI: 40.8 Code: 20802-3 Heart Rate 1: 76 bpm Height: 5'5" Code: 8302-2 Respiratory Rate: 20 bpm Temperatu re: 37.2 (C) / 99.0 (F) Weight: 245 lbs Code: 61979-1 02/05/2014 Blood Pressure 1: 136/86 Code: 8480-6 BMI: 40.6 Code: 66176-3 Heart Rate 1: 80 bpm Height: 5'5" Code: 8302-2 Respiratory Rate: 20 bpm Temperatu re: 36.6 (C) / 97.8 (F) Weight: 244 lbs Code: 74985-1 02/04/2014 Blood Pressure 1: 128/84 Code: 8480-6 BMI: 40.6 Code: 83066-8 Heart Rate 1: 76 bpm Height: 5'5" Code: 8302-2 Respiratory Rate: 20 bpm Temperatu re: 37.4 (C) / 99.3 (F) Weight: 244 lbs Code: 21279-5 11/27/2013 Blood Pressure 1: 122/78 Code: 8480-6 BMI: 40.4 Code: 12757-9 Heart Rate 1: 72 bpm Height: 5'5" Code: 8302-2 Respiratory Rate: 22 bpm Temperatu re: 36.3 (C) / 97.3 (F) Weight: 243 lbs Code: 26750-9 08/15/2013 Blood Pressure 1: 126/84 Code: 8480-6 BMI: 39.9 Code: 35733-3 Heart Rate 1: 68 bpm Height: 5'5" Code: 8302-2 Respiratory Rate: 22 bpm Temperatu re: 35.6 (C) / 96.1 (F) Weight: 240 lbs Code: 76103-8 07/31/2013 Blood Pressure 1: 136/88 Code: 8480-6 BMI: 41.0 Code: 99559-1 Heart Rate 1: 80 bpm Height: 5'4" Code: 8302-2 Respiratory Rate: 20 bpm Temperatu re: 36.9 (C) / 98.4 (F) Weight: 239 lbs Code: 66073-2 09/18/2012 Blood Pressure 1: 122/86 Code: 8480-6 BMI: 38.6 Code: 80209-9 Heart Rate 1: 100 bpm Height: 5'4" Code: 8302-2 Respiratory Rate: 20 bpm Temperatu re: 36.7 (C) / 98.0 (F) Weight: 225 lbs Code: 72715-3 09/13/2012 Blood Pressure 1: 124/78 Code: 8480-6 BMI: 39.5 Code: 32590-2 Heart Rate 1: 68 bpm Height: 5'4" Code: 8302-2 Temperature: 36.3 (C) / 97.4 (F) Weight: 230 lbs Code: 11711-9 06/06/2012 Blood Pressure 1: 116/72 Code: 8480-6 BMI: 38.4 Code: 67083-7 Heart Rate 1: 80 bpm Height: 5'4" Code: 8302-2 Respiratory Rate: 20 bpm Temperatu re: 36.9 (C) / 98.4 (F) Weight: 224 lbs Code: 16188-8 03/06/2012 Blood Pressure 1: 122/70 Code: 8480-6 BMI: 38.4 Code: 00107-5 Heart Rate 1: 84 bpm Height: 5'4" Code: 8302-2 Respiratory Rate: 20 bpm Temperatu re: 36.6 (C) / 97.9 (F) Weight: 224 lbs Code: 06970-6 02/05/2012 Blood Pressure 1: 116/78 Code: 8480-6 BMI: 39.7 Code: 39391-0 Heart Rate 1: 92 bpm Height: 5'4" Code: 8302-2 Respiratory Rate: 20 bpm Temperatu re: 36.7 (C) / 98.0 (F) Weight: 231 lbs Code: 64123-1 01/08/2012 Blood Pressure 1: 116/78 Code: 8480-6 BMI: 39.5 Code: 18904-5 Heart Rate 1: 84 bpm Height: 5'4" Code: 8302-2 Respiratory Rate: 20 bpm Temperatu re: 36.8 (C) / 98.2 (F) Weight: 230 lbs Code: 25907-8 11/15/2011 Blood Pressure 1: 114/78 Code: 8480-6 BMI: 39.1 Code: 18859-0 Heart Rate 1: 88 bpm Height: 5'4" Code: 8302-2 Respiratory Rate: 20 bpm Temperatu re: 36.8 (C) / 98.2 (F) Weight: 228 lbs Code: 93463-2 02/08/2011 Blood Pressure 1: 114/78 Code: 8480-6 BMI: 39.5 Code: 90241-9 Heart Rate 1: 72 bpm Height: 5'4" Code: 8302-2 Respiratory Rate: 20 bpm Temperatu re: 36.7 (C) / 98.0 (F) Weight: 230 lbs Code: 43728-6 05/24/2010 Blood Pressure 1: 106/74 Code: 8480-6 Heart Rate 1: 80 bpm Temperature: 36.6 (C) / 97.8 (F) Weight: 219 lbs Code: 37162-9 08/09/2009 Blood Pressure 1: 116/76 Code: 8480-6 BMI: 37.4 Code: 22220-8 Heart Rate 1: 88 bpm Height: 5'4" Code: 8302-2 Temperature: 36.6 (C) / 97.9 (F) Weight: 218 lbs Code: 39705-1 Functional Status No Functional Status data Reason [...] Encounter Performer Location Location Address Codes Date ([id number]) OFFICE/OUTPATIENT VISIT EST Diagnosis: Influenza B[ICD10: J10.1] Dory WILKESR DO [address] [address] CPT-4: 22469 04/10/2022 ([id number]) OFFICE/OUTPATIENT VISIT EST Diagnosis: URI, ACUTE[ICD10: J06.9] Diagnosis: Influenza B[ICD10: J10.1] Dory STALLINGS NDER DO [address] [address] CPT-4: 09748 02/06/2022 ([id number]) OFFICE/OUTPATIENT VISIT EST Diagnosis: Diarrhea[ICD10: R19.7] Diagnosis: Proctitis[ICD10: K62.89] Diagnosis: Colitis[ICD10: K52.9] Diagnosis: Inflamed seborrheic keratosis[ICD10: L82.0] Dory DEL A PAZ [address] [address] CPT- 4: 18711 10/03/2021 ([id number]) OFFICE/OUTPATIENT VISIT EST Diagnosis: Osteoarthritis of knees, bilateral[ICD10: M17.0] Diagnosis: Essential (primary) hypertension[ICD10: I10] Dory DE LA PAZ [address] [address] CPT- 4: 00670 06/20/2021 ([id number]) OFFICE/OUTPATIENT VISIT EST Diagnosis: Edema[ICD10: R60.9] Diagnosis: Rectal bleeding[ICD10: K62.5] Diagnosis: Osteoarthritis of knees, bilateral[ICD10: M17.0] Dory DE LA PAZ [address] [address] CPT- 4: 37422 06/06/2021 ([id number]) OFFICE/OUTPATIENT VISIT EST Diagnosis: URI, ACUTE[ICD10: J06.9] Diagnosis: Acute sinusitis[ICD10: J01.90] Dory DE LA PAZ [address] [address] CPT-4: 55149 03/29/2021 ([id number]) OFFICE/OUTPATIENT VISIT EST Diagnosis: Contact with and (suspected) exposure to covid-19[ICD10: Z20.822] Diagnosis: Upper respiratory infection[ICD10: J06.9] Mamie DE LA PAZ [address] [address] CPT-4: 65923 03/28/2021 ([id number]) NURSE/OUTPATIENT VISIT EST Diagnosis: Encounter for immunization[ICD10: Z23] Dory Gerardsharlajosh DE LA PAZ [address] [address] CPT-4: 53726 01/19/2021 ([id number]) OFFICE/OUTPATIENT VISIT EST Diagnosis: Essential (primary) hypertension[ICD10: I10] Diagnosis: Hypothyroidism, unspecified[ICD10: E03.9] Diagnosis: Inflamed seborrheic keratosis[ICD10: L82.0] Diagnosis: Colitis[ICD10: K52.9] Dory DE LA PAZ [address] [address] CPT-4: 37099 01/06/2021 ([id number]) OFFICE/OUTPATIENT VISIT EST Diagnosis: Inflamed seborrheic keratosis[ICD10: L82.0] Diagnosis: Colitis[ICD10: K52.9] Dory DE LA PAZ [address] [address] CPT-4: 78193 09/20/2020 ([id number]) OFFICE/OUTPATIENT VISIT EST Diagnosis: Essential (primary) hypertension[ICD10: I10] Diagnosis: Hypothyroidism, unspecified[ICD10: E03.9] Diagnosis: Hyperglycemia, unspecified[ICD10: R73.9] Dory DE LA PAZ [address] [address] CPT- 4: 90728 04/14/2020 ([id number]) NURSE/OUTPATIENT VISIT EST Diagnosis: Encounter for immunization[ICD10: Z23] Dory DE LA PAZ DO [address] [address] CPT-4: 70863 01/14/2020 ([id number]) OFFICE/OUTPATIENT VISIT EST Diagnosis: Essential (primary) hypertension[ICD10: I10] Diagnosis: Colitis[ICD10: K52.9] Dory DE LA PAZ DO [address] [address] CPT-4: 62595 01/05/2020 ([id number]) OFFICE/OUTPATIENT VISIT EST Diagnosis: Essential (primary) hypertension[ICD10: I10] Diagnosis: Diarrhea[ICD10: R19.7] Dory Faustin DO [address] [address] CPT-4: 52791 10/01/2019 ([id number]) OFFICE/OUTPATIENT VISIT EST Diagnosis: Essential (primary) hypertension[ICD10: I10] Diagnosis: Hypothyroidism, unspecified[ICD10: E03.9] Diagnosis: Hyperglycemia, unspecified[ICD10: R73.9] Diagnosis: Cough[ICD10: R05] Diagnosis: Colitis[ICD10: K52.9] Dory DE LA PAZ DO [address] [address] CPT-4: 98671 04/08/2019 ([id number]) OFFICE/OUTPATIENT VISIT EST Diagnosis: Cough[ICD10: R05] Diagnosis: Upper respiratory infection[ICD10: J06.9] Rachel Turnermiguel Lambert STUART DE LA PAZ DO [address] [address] CPT-4: 80450 01/06/2019 ([id number]) OFFICE/OUTPATIENT VISIT EST Diagnosis: Essential (primary) hypertension[ICD10: I10] Diagnosis: Hypothyroidism, unspecified[ICD10: E03.9] Diagnosis: Hyperglycemia, unspecified[ICD10: R73.9] Diagnosis: Diarrhea[ICD10: R19.7] Dory Faustin [address] [address] CPT-4: 40052 12/30/2018 ([id number]) OFFICE/OUTPATIENT VISIT EST Diagnosis: Essential (primary) hypertension[ICD10: I10] Diagnosis: Hyperglycemia, unspecified[ICD10: R73.9] Diagnosis: Hypothyroidism, unspecified[ICD10: E03.9] Dory HOLCOMB AmauriAida JASSI JONES [employer] [address] [place] [address] CPT- 4: 70284 07/08/2018 ([id number]) OFFICE/OUTPATIENT VISIT EST Diagnosis: Essential (primary) hypertension[ICD10: I10] Diagnosis: Localized edema[ICD10: R60.0] Diagnosis: Hypothyroidism, unspecified[ICD10: E03.9] Diagnosis: Other fatigue[ICD10: R53.83] Diagnosis: Hyperglycemia, unspecified[ICD10: R73.9] Diagnosis: Contact with and (suspected) exposure to potentially hazardous body fluids[ICD10: Z77.21] Dory Cates GERARDSHARLAJOSH [employer] [address] [place] [address] CPT-4: 97529 06/10/2018 ([id number]) PREV VISIT EST AGE 40-64 Diagnosis: Encounter for general adult medical examination without abnormal findings[ICD10: Z00.00] Diagnosis: Essential (primary) hypertension[ICD10: I10] Diagnosis: Localized edema[ICD10: R60.0] Dory Cates GERARDRONDA JONES [employer] [address] [place] [address] CPT-4: 71285 09/04/2017 ([id number]) OFFICE/OUTPATIENT VISIT EST Diagnosis: Localized edema[ICD10: R60.0] Dory Cates GERARDSHARLAJOSH JONES [employer] [address] [place] [address] CPT-4: 24120 08/16/2017 ([id number]) OFFICE/OUTPATIENT VISIT EST Diagnosis: Pain in right knee[ICD10: M25.561] Dory Cates GERARDNDER [employer] [address] [place] [address] CPT-4: 71680 08/10/2016 ([id number]) OFFICE/OUTPATIENT VISIT EST Diagnosis: Other fatigue[ICD10: R53.83] Diagnosis: Hypothyroidism, unspecified[ICD10: E03.9] Dory DE LA PAZ DO [address] [address] CPT- 4: 36584 12/29/2015 ([id number]) NO CHARGE Diagnosis: Dehydration[ICD10: E86.0] Diagnosis: Fever, unspecified[ICD10: R50.9] Dory DE LA PAZ DO [address] [address] CPT-4: 75704 10/28/2015 ([id number]) OFFICE/OUTPATIENT VISIT EST Diagnosis: Urticaria, unspecified[ICD10: L50.9] Dory YINGER [address] [address] CPT-4: 04782 08/17/2015 ([id number]) OFFICE/OUTPATIENT VISIT EST Diagnosis: Tinea cruris[ICD10: B35.6] Diagnosis: Pain in right knee[ICD10: M25.561] Diagnosis: Diarrhea, unspecified[ICD10: R19.7] Dory GARCIAMUSAGissel STALLINGSNDER DO [address] [address] CPT-4: 97411 08/10/2015 ([id number]) OFFICE/OUTPATIENT VISIT EST Diagnosis: CELLULITIS[ICD9: 682.9] Diagnosis: FOLLICULITIS[ICD9: 704.8] Dory STALLINGS NDER DO [address] [address] CPT-4: 84921 12/31/2014 ([id number]) PREV VISIT EST AGE 40-64 Diagnosis: ROUTINE MEDICAL EXAM[ICD9: V70.0] Diagnosis: URTICARIA[ICD9: 708.9] Diagnosis: HYPOTHYROIDISM[ICD9: 244.9] Diagnosis: Elevated liver enzymes[ICD9: 790.5] Dory Oreronda ALMEIDA NAZANIN STALLINGSNDER DO [address] [address] CPT-4: 35225 06/25/2014 ([id number]) OFFICE/OUTPATIENT VISIT EST Diagnosis: SINUSITIS, ACUTE[ICD9: 461.9] Diagnosis: PNEUMONIA, ORGANISM[ICD9: 486] Dory YINGER [address] [address] CPT-4: 57744 02/05/2014 ([id number]) OFFICE/OUTPATIENT VISIT EST Diagnosis: Periorbital edema[ICD9: 782.3] Diagnosis: PNEUMONIA, ORGANISM[ICD9: 486] Dory DE LA PAZ DO [address] [address] CPT-4: 28652 02/04/2014 OFFICE/OUTPATIENT VISIT EST Diagnosis: SINUSITIS, ACUTE[ICD9: 461.9] Diagnosis: URTICARIA[ICD9: 708.9] Diagnosis: HYPERTENSION[ICD9: 401.9] Lashon BOND [address] [address] CPT-4: 77304 11/27/2013 OFFICE/OUTPATIENT VISIT EST Diagnosis: URTICARIA[ICD9: 708.9] Diagnosis: COUGH[ICD9: 786.2] Lashon YINGER [address] [address] CPT-4: 19435 08/16/19 14 ([id number]) OFFICE/OUTPATIENT VISIT EST Diagnosis: HYPOTHYROIDISM[ICD9: 244.9] Diagnosis: HYPERTENSION[ICD9: 401.9] Diagnosis: DM W/O COMPLICATION TYPE II[ICD9: 250.00] Diagnosis: Skin tag[ICD9: 701.9] Diagnosis: Changing skin lesion[ICD9: 709.9] Dorykika De La Paz KRISTOPHER Sheldon YINGER DO [address] [address] CPT-4: 51715 07/31/2013 OFFICE/OUTPATIENT VISIT EST Diagnosis: Diarrhea[ICD9: 787.91] Diagnosis: ABDOMINAL PAIN[ICD9: 789.00] Rossy DE LA PAZ DO [address] [address] CPT-4: 21669 09/18/2012 OFFICE/OUTPATIENT VISIT EST Diagnosis: Chest pain[ICD9: 786.50] Dory BROWN INA DO [address] [address] CPT-4: 18414 09/13/2012 ([id number]) OFFICE/OUTPATIENT VISIT EST Diagnosis: HYPOTHYROIDISM[ICD9: 244.9] Diagnosis: COUGH[ICD9: 786.2] Diagnosis: DERMATITIS NOS[ICD9: 692.9] Dory ZAMARRIPALINE AmauriAida SEYMOUR DO [address] [address] CPT-4: 96453 06/06/2012 ([id number]) OFFICE/OUTPATIENT VISIT EST Diagnosis: HYPOTHYROIDISM[ICD9: 244.9] Diagnosis: DM W/O COMPLICATION TYPE II[ICD9: 250.00] Diagnosis: ARTHRALGIA-MULTIPLE SITES[ICD9: 719.49] Diagnosis: HYPERTENSION[ICD9: 401.9] Diagnosis: BRONCHITIS, ACUTE[ICD9: 466.0] Dory Baugh Aida DEONNAER DO [address] [address] CPT-4: 22044 03/06/2012 ([id number]) OFFICE/OUTPATIENT VISIT EST Diagnosis: HYPOTHYROIDISM[ICD9: 244.9] Diagnosis: ARTHRALGIA-MULTIPLE SITES[ICD9: 719.49] Diagnosis: DM W/O COMPLICATION TYPE II[ICD9: 250.00] Dory YINGER DO [address] [address] CPT- 4: 67859 02/05/2012 OFFICE/OUTPATIENT VISIT EST Diagnosis: ARTHRALGIA-MULTIPLE SITES[ICD9: 719.49] Diagnosis: Myalgia[ICD9: 729.1] Dory ZAMARRIPALINE AmauriAida DEONNAER DO [address] [address] CPT-4: 17963 01/08/20 12 ([id number]) OFFICE/OUTPATIENT VISIT EST Diagnosis: HYPERTENSION[ICD9: 401.9] Diagnosis: HYPOTHYROIDISM[ICD9: 244.9] Dory Cates [facility] [address] [place] [address] CPT-4: 51197 11/15/2011 OFFICE/OUTPATIENT VISIT EST Diagnosis: HYPOTHYROIDISM[ICD9: 244.9] Diagnosis: HYPERTENSION[ICD9: 401.9] Diagnosis: MALAISE AND FATIGUE[ICD9: 780.79] Dory Chung S[facility] [address] [place] [address] CPT-4: 97438 02/08/2011 ([id number]) OFFICE/OUTPATIENT VISIT EST Dory JACKSON SAida OREND[facility] DO [employer] [address] [place] [address] CPT-4: 14057 05/24/2010 ([id number]) OFFICE/OUTPATIENT VISIT, EST Dory SHEN AmauriAida ORENDER DO [employer] [address] [place] [address] CPT-4: 17359 08/09/2009 Plan of Care Planned Activity Notes Codes Status Date Visit Diagnosis Plan: Influenza B Discussion: Tamiflu 75mg po BID for 5 days Supportive care ICD-9 : 487.1 ICD-10 : J10.1 04/10/2022 Patient Education: Tamiflu- [employer] Coupon [id number] 1 https://www.[employer]/samplemd/resources/getResource/61/[email or web address] Completed 04/10/2022 Visit Diagnosis Plan: Influenza B Discussion: Tamiflu, SVNs with albuterol q4hrs, Z-pack Notify if worsening/persists ICD-9 : 487.1 ICD-10 : J10.1 02/06/2022 Appointment: Dory De La Paz WPtel: [address] [place], [place] [address] [place] ACUTE ILLNESS 02/06/2022 Patient Education: Tamiflu- [employer] Coupon [id number] 2 https://www.[employer]/samplemd/resources/getResource/61/[email or web address]-jk Completed 02/06/2022 Visit Diagnosis Plan: Inflamed seborrheic keratosis Di scussion: Cryotherapy as above ICD-9 : 702.11 ICD-10 : L82.0 10/03/2021 Visit Diagnosis Plan: Diarrhea Discussion: Referral to Dr. Silver Likely will need updated EGD and colonoscopy ICD-9 : 787.91 ICD-10 : R19.7 10/03/2021 Appointment: Dory De La Paz WPtel: [phone] [phone] [place] FOLLOW UP 10/03/2021 Care Plan: Referral Order SNOMED-CT : 30 [id number] Pending 10/03/2021 Referral: Ezequiel Wang WPtel: [facility] [place] Referral Appointment Confirmed 08/10/2021 Visit Diagnosis Plan: Essential (primary) hypertension Discussion: Stable Will stay at higher dose of spirololactone ICD-9 : 401.9 ICD-10 : I10 06/20/2021 Visit Diagnosis Plan: Osteoarthritis of knees, bilater al Discussion: Due for shots in 1 month ICD-9 : 715.96 ICD-10 : M17.0 06/20/2021 Appointment: Dory De La Paz WPtel: [phone] [facility] [place] FOLLOW UP 06/20/2021 Patient Education: spironolactone- [employer] Coupon 1 [id number] https://www.[employer]/samplemd/resources/getResource/61/9l18uh7r-40ry-871k-j1 Completed 06/20/2021 Patient Education: levothyroxine- [employer] Coupon 19 [id number] https://www.[employer]/samplemd/resources/getResource/61/[email or web address]-b1 Completed 06/20/2021 Patient Education: sertraline- [employer] Coupon 8 https://www.[employer]/samplemd/resources/getResource/61/h21en80a-i489-4972-3f Completed 06/20/2021 Care Plan: Referral Order SNOMED-CT : 30 [id number] Pending 06/20/2021 Visit Diagnosis Plan: Rectal bleeding [...] 06/06/2021 Appointment: Dory De La Paz WPtel: [facility] [address] ACUTE ILLNESS 06/06/2021 Patient Education: prednisone- [employer] Coupon 5986 https://www.[employer]/samplemd/resources/getResource/61/[email or web address]-[email or web address]-9af5-85 Completed 06/06/2021 Visit Diagnosis Plan: URI, ACUTE Discussion: Supportiv e care with rest, fluids, humidifier and Notify if worsens Kenalog 40mg IM x1 ICD-9 : 465.9 ICD-10 : J06.9 03/29/2021 Appointment: Dory De La Paz WPtel: [facility] [phone] WORK IN 03/29/2021 Visit Plan: Supportive care. [...] 03/28/2021 Appointment: Mam[facility] Low [facility] [phone] [id number] AC[facility] 03/28/2021 Patient Education: Patient Medication Summary Completed 03/28/2021 Appointment: [facility] De La Paz [facility] [phone] [facility] [place] Immunizations 01/19/2021 Visit Diagnosis Plan: Colitis Discussion: [facility] Wang ICD-9 : 558.9 ICD-10 [...] Appointment: Dory De La Paz [facility]el[facility] [phone] [facility] [place] FOLLOW UP 01/06/2021 Patient Education: levothyroxine- Optimize[employer] Coupon [id number] [email or web address] Completed 01/06/2021 Visit Diagnosis Plan: Inflamed seborrheic keratosis Di scussion: Cryotherapy as above ICD-9 : 702.11 ICD-10 : L82.0 09/20/2020 Visit Diagnosis Plan: Colitis Discussion: Discussed re ferral to [facility] ICD-9 : 558.9 ICD-10 : K52.9 09/20/2020 Appointment: Dory De La Paz WPtel: [address] [place], [place] [phone] ACUTE ILLNESS 09/20/2020 Visit Diagnosis Plan: Essential (primary) hypertension Discussion: Stable ICD-9 : 401.9 ICD-10 : I10 04/14/2020 Visit Diagnosis Plan: Hyperglycemia, unspecified Discu ssion: Stable Repeat lab in 6mos ICD-9 : 790.29 ICD-10 : R73.9 04/14/2020 Visit Diagnosis Plan: Hypothyroidism, unspecified Disc ussion: Lab stable ICD-9 : 244.9 ICD-10 : E03.9 04/14/2020 Appointment: Dory De La Paztel: [address] [place], [place] [phone] FOLLOW UP 04/14/2020 Appointment: Dory De La Paztel: [address] [place], [place] [phone] NURSE SERVICES 01/14/2020 Visit Diagnosis Plan: Essential (primary) hypertension Discussion: Stable Will return for prevnar 13 next week Fasting lab in 3mos ICD-9 : 401.9 ICD-10 : I10 01/05/2020 Visit Diagnosis Plan: Colitis Discussion: GI started m esalamine ICD-9 : 558.9 ICD-10 : K52.9 01/05/2020 Appointment: Dory De La Paz WPtel: [address] [place], [place] [phone] ACUTE ILLNESS 01/05/2020 Visit Diagnosis Plan: Diarrhea Discussion: Colestid he aaron Saw Dr. Wang ICD-9 : 787.91 ICD-10 : R19.7 10/01/2019 Visit Diagnosis Plan: Essential (primary) hypertension Discussion: Stable Lab discussed Follow Up: 6 months ICD-9 : 401.9 ICD-10 : I10 10/01/2019 Appointment: Dory De La Paz [facility]el[facility] [phone] [facility] [place] FOLLOW UP 10/01/2019 Patient Education: Zoloft- OptimizeRX Coupon [id number] [email or web address] Completed 10/01/2019 Appointment: Dory De La Paz [facility]Ptel[facility] [phone] [facility] [place] CANCELED 09/25/2019 Care Plan: RML COMPREHEN METABOLIC PANEL LOINC : 28117-2 Pending 09/18/2019 Care Plan: RML ASSAY OF FREE THYROXINE Pe nding 09/18/2019 Care Plan: RML A1C HPLC LOINC : 18145-6 Pending 09/18/2019 Care Plan: RML COMPLETE CBC W/AUTO DIFF WBC LOINC : 11847-0 Pending 09/18/2019 Visit Diagnosis Plan: Hypothyroidism, unspecified [...] Appointment: Dory De La Paz WPtel: [phone] [phone] FOLLOW UP 04/08/2019 Patient Education: Synthroid- OptimizeRX Coupon [id number] https://www.[employer]/resources/getResource/61/[email or web address]-h7 Completed 04/08/2019 Patient Education: spironolactone- OptimizeRX Coupon [id number] https://www.[employer]/resources/getResource/61/v66ersu8-0l70-7f39-gd Completed 04/08/2019 Care Plan: MAMMOGRAM SCREENING LOINC : 2 6347-5 Pending 04/08/2019 Care Plan: CHEST X-RAY 2VW FRONTAL&LATL LOINC : 23380-9 Pending 04/08/2019 Visit Diagnosis Plan: Upper respiratory infection Disc ussion: albuterol refilled for patient. tessalon perles prescribed to take as needed and low dose prednisone prescribed to take as directed. instructed to call office with any new or worsening symptoms including fever, dyspnea, etc. ICD-9 : 465.9 ICD-10 : J06.9 01/06/2019 Appointment: Rachel Singleton [address] [place], [place] [id number] ACUTE ILLNESS 01/06/2019 Patient Education: albuterol sulfate- OptimizeRX Coupo n [id number] https://www.[employer]/resources/getResource/61/[email or web address]-cw Completed 01/06/2019 Patient Education: prednisone- OptimizeRX Coupon [id number] https://www.[employer]/resources/getResource/61/bu4owzd2-693c-1g9a-1w Completed 01/06/2019 Visit Diagnosis Plan: Essential (primary) hypertension Discussion: Stable ICD-9 : 401.9 ICD-10 : I10 12/30/2018 Visit Diagnosis Plan: Hyperglycemia, unspecified Discu ssion: Check HbA1C in [facility] ICD-9 : 790.29 ICD-10 : R73.9 12/30/2018 Visit Diagnosis Plan: Diarrhea Discussion: Sees Dr. Fox this week--may need another colonoscopy ICD-9 : 787.91 ICD-10 : R19.7 12/30/2018 Visit Diagnosis Plan: Hypothyroidism, unspecified Disc ussion: Check thyroid lab in [facility] ICD-9 : 244.9 ICD-10 : E03.9 12/30/2018 Appointment: Dory De La Paz WPtel: [phone] [place] [phone] [place] FOLLOW UP 12/30/2018 Appointment: Dory De La Paz WPtel: [facility] [place] [phone] [place] will call back to reschedule CANCELED [...] Appointment: Dory De La Paz WPtel: [phone] [phone] [place] FOLLOW UP 07/08/2018 Patient Education: Synthroid- OptimizeRX Coupon [id number] https://www.[employer]/resources/getResource/61/[email or web address]-[email or web address] Completed 07/08/2018 Visit Diagnosis Plan: Localized edema [...] Appointment: [facility] De La Paz [facility]el[facility] [phone] [phone] [facility] UP 06/10/2018 Patient Education: spironolactone- OptimizeRX Coupon [id number] Completed 06/10/2018 Patient Education: oseltamivir- OptimizeRX Coupon [id number] Completed 06/10/2018 Patient Education: Synthroid- OptimizeRX Coupon [id number] Completed 06/10/2018 Patient Education: Patient Medication Summary Completed 10/11/2017 Care Plan: RML ASSAY OF FREE THYROXINE Pe nding 10/11/2017 Care Plan: RML ASSAY THYROID STIM HORMONE Pending 10/11/2017 Appointment: Dory De La Paz [facility]Ptel[facility] [phone] [phone] [place] INJECTION 10/01/2017 Patient Education: Patient Medication Summary Completed 10/01/2017 Visit Diagnosis Plan: Encounter for gene [facility] adult medical examination without abnormal findings Discussion: 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 Mammo u p to date [...] 09/04/2017 Appointment: Dory De La Paz WPtel: [phone] [phone] Annual Well Visit 09/04/2017 Patient Education: Patient Medication Summary Completed 09/04/2017 Care Plan: Referral Order SNOMED-CT : [phone] Pending 09/04/2017 Appointment: Dory De La Paz WPtel: [phone] [place] [phone] [place] CANCELED 08/28/2017 Visit Diagnosis Plan: Localized edema Discussion: Stat RLE venous doppler If negative will start lasix and potassium and recheck in 1 week Patient understands she will hear from us tonite on results--given sample of eliquis 5mg in case needs to start tonite ICD-9 : 782.3 ICD-10 : R60.0 08/16/2017 Appointment: Dory De La Paz WPtel: [facility] [place] [phone] ACUTE ILLNESS 08/16/2017 Patient Education: Patient Medication [...] Matt Garrett WPtel: [facility] [address], [facility] [id number] Patient scheduled for 09/06/16 @ 1:30pm- LM for patient Appointment Confirmed 09/06/2016 Visit Diagnosis Plan: Pain in right knee Discussion: R ecommend MRI of right knee and ortho consult ICD-9 : 719.46 ICD-10 : M25.561 08/10/2016 Appointment: Dory De La Paz WPtel[facility] [phone] [phone] 08/09 confirmed-sp ACUTE ILLNESS 08/10/2016 Patient Education: Patient Medication Summary Completed 08/10/2016 Patient Education: Patient Medication Summary Completed 06/08/2016 Care Plan: RML COMPREHEN METABOLIC PANEL LOINC : 76699-2 Pending 06/08/2016 Care Plan: RML ASSAY THYROID STIM HORMONE Pending 06/08/2016 Care Plan: RML ASSAY OF FREE THYROXINE Pe nding 06/08/2016 Patient Education: Patient Medication Summary Completed 03/15/2016 Care Plan: MAMMOGRAM SCREENING LOINC : 2 6347-5 Pending 03/15/2016 Patient Education: Patient Medication Summary Completed 02/03/2016 Care Plan: RML COMPREHEN METABOLIC PANEL LOINC : 75772-7 Pending 02/03/2016 Care Plan: CBC Pending 02/03/2016 Care Plan: RML VITAMIN B-12 Pending 02/03/2016 Care Plan: ASSAY OF IRON Pending Care Plan: ANTINUCLEAR ANTIBODIES LOINC : 74302-2 Pending 02/03/2016 Visit Plan: Check CBC, TSH, free T4, CMP Discussed may need stress test if labs better and continues with ongoing fatigue Has seen Dr. Higgins and will be following up with him in February for possible liver biopsy 12/29/2015 Appointment: Dory De La Paz WPtel[facility] [phone] [phone] 12/27 lm~sl 12/28 confirmed~slf FOLLOW UP Patient Education: Patient Medication Summary Completed 12/29/2015 Appointment: Dory De La Paz WPtel: [address] [place], [place] [phone] 11/21 patient was seen earlier~sl RESCHEDULED 11/23/2015 Visit Plan: Direct admit to the hospital 10/28/2015 Appointment: Dory De La Paz WPtel: [address] [place], [place] [phone] ACUTE ILLNESS 10/28/2015 Patient Education: Patient Medication Summary Completed 10/28/2015 Appointment: Dory De La Paz WPtel: [address] [place], [place] [phone] SPECIAL 10/25/2015 Patient Education: Patient Medication Summary Completed 10/21/2015 Care Plan: RML ASSAY THYROID STIM HORMONE Pending 10/21/2015 Care Plan: RML ASSAY OF FREE THYROXINE Pe nding 10/21/2015 Referral: David Higgins WPtel: [address] [place], [place] [phone] Referral Initiated 10/12/2015 Appointment: Dory De La Paz WPtel: [address] [place], [place] [phone] [place] INJECTION 08/17/2015 Patient Education: Patient Medication Summary Completed 08/17/2015 Visit Plan: Topical nystatin and oral ke toconazole--hold pravastatin while on Right leg strengthening exercises Trial of colestipid for diarrhea Discussed need to go back to GI and complete workup including liver biopsy 08/10/2015 Appointment: Dory De La Paz WPtel: [address] [place], [place] [phone] 08/08confirmed ~sl ACUTE ILLNESS 08/10/2015 Patient Education: Patient Medication Summary Completed 08/10/2015 Patient Education: Patient Medication Summary Completed 03/11/2015 Visit Plan: Bactrim and Bactroban Call i n 1week 12/31/2014 Appointment: Dory De La Paz WPtel: [address] [place], [place] [phone] ACUTE ILLNESS 12/31/2014 Patient Education: Patient Medication Summary Completed 12/31/2014 Visit Plan: Continue Sharon at 180mg da ana Increase Pepcid to 10mg po BID Aveeno oatmeal baths Sarna lotion Obtain TSH and Free T4 level Check fasting lab with next thyroid lab/draw Epipen and benadryl emergency kit Check Liver US 06/25/2014 Appointment: Dory De La Paz WPtel: [address] [place], [place] [phone] Annual Well Visit 06/25/2014 Patient Education: Patient Medication Summary Completed 06/25/2014 Patient Education: Patient Medication Summary Completed 03/09/2014 Appointment: Dory De La Paz WPtel: [address] [place], [place] [phone] FOLLOW UP 02/05/2014 Patient Education: Patient Medication Summary Completed 02/05/2014 Appointment: Dory De La Paz WPtel: [address] [place], [place] [phone] ACUTE ILLNESS 02/04/2014 Patient Education: Patient Medication Summary Completed 02/04/2014 Appointment: Lashon White WPtel: [address] [place], [place] [phone] FOLLOW UP 11/27/2013 Patient Education: Patient Medication Summary Completed 11/27/2013 Appointment: Lashon White WPtel: [address] [place], [place] [phone] FOLLOW UP 09/02/2013 Appointment: Lashon White WPtel: [address] [place], [place] [phone] ACUTE ILLNESS 08/15/2013 Patient Education: Patient Medication Summary Completed 08/15/2013 Visit Plan: Cryotherapy to skin tag as a timo See surgery for removal of left leg lesion--suspicious for basal cell carcinoma Check fasting lab 07/31/2013 Appointment: Dory De La Paz WPtel: [address] [place], [place] [phone] ACUTE ILLNESS 07/31/2013 Patient Education: Patient Medication Summary Completed 07/31/2013 Appointment: Rossy Bravo WPtel: [address] [place], [place] [id number] ACUTE ILLNESS 09/18/2012 Patient Education: Patient Medication Summary Completed 09/18/2012 Visit Plan: currently rates chest pain a t a 3-4 on a scale of 1-10. Pref[address] Dr. Dsouza in [place] as that is who her sees. 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 (her used to see [facility]-recently ) Pt. agrees to/prefers outpatient workup. Lengthy discussion regarding immediate ER evaluation if her symptoms worsen or change. Pt. verbalizes understanding of the need for immediate eval if symptoms worsen or change. Chest x-ray/EKG ordered at [facility] [address]. 09/13/2012 Appointment: Rossy Bravo WPtel: [address] [place], [place] [id number] ACUTE ILLNESS 09/13/2012 Patient Education: Patient Medication Summary Completed 09/13/2012 Visit Plan: Obtain most recent copies of lab from [facility] Continue meds at current dose TAC with eucerin to hands q HS Fwup pending lab results 06/06/2012 Appointment: Dory De La Paz WPtel: [phone] 06/03 06/05 left message FOLLOW UP 06/06/2012 Patient Education: Patient Medication Summary Completed 06/06/2012 Visit Plan: Change synthroid to 137mcg p o daily for next 12 wks then check thyroid lab Continue metformin at current dose with accuchecks Doxycycline 100mg 1 po BID for 10 days and restart Symbicort 03/06/2012 Appointment: Dory De La Paz WPtel: [phone] 02/14/ rescheduled pt 03/07 appt to 02/08 [...] 02/05/2012 Appointment: Dory De La Paz WPtel: [address] [place], [place] [phone] 02/01- left message FOLLOW UP 02/05/2012 Patient Education: Patient Medication Summary Completed 02/05/2012 Appointment: Dory De La Paz WPtel: [address] [place], [place] [phone] ACUTE ILLNESS 01/08/2012 Patient Education: Patient Medication Summary Completed 01/08/2012 Visit Plan: Check fasting lab 11/15/2011 Appointment: Dory De La Paz WPtel: [address] [place], [place] [phone] machine message FOLLOW UP 11/15/2011 Patient Education: Patient Medication Summary Completed 11/15/2011 Visit Plan: Add daily Ca with Vit D and Vit D3 1000u daily Continue current meds Long discussion about diet and exercise and weight loss 02/08/2011 Appointment: Dory De La Paz WPtel: [address] [place], [place] [phone] FOLLOW UP 02/08/2011 Patient Education: Patient Medication Summary Completed 02/08/2011 Visit Plan: Continue current meds 05/24/2010 Appointment: Dory De La Paz WPtel: [address] [place], [place] [phone] FOLLOW UP 05/24/2010 Patient Education: Patient Medication Summary Completed 05/24/2010 Appointment: Dory De La Paz WPtel: [address] [place], [place] [phone] FOLLOW UP 05/12/2010 Visit Plan: We will check TSH, free T4, and CBC 08/09/2009 Appointment: Dory De La Paz WPtel: [phone] [id number] FOLLOW UP 08/09/2009 Patient Education: Patient Medication Summary Completed 08/09/2009 Referral: Deon Mercado WPtel: [address] [facility] [address] [id number] [place] Referral Completed Referral: Daniel Silver WPtel: [address], [address] [id number] [place] Referral Initiated Referral: Deny Mariano [facility]Ptel: [facility] [id number] [place] Referral Completed Referral: David Higgins WPtel: [address] [id number] [place] Referral Appointment Requested Instructions Comment Date [...] scale of 1-10. Prefers Dr. Dsouza in [place] as that is who her sees. 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 (her used to see Jackie-recently ) Pt. [...]
[2022-06-01] MEDS ORDERED: metroNIDAZOLE 500MG/100ML IVPB 100 ML IV ONE (09:15)
[2022-06-01] MEDS ORDERED: ceFAZolin INJECTION 2,000 MG in NS (IVPB) 50 ML IV ONE (09:15)
[2022-06-01] MEDS: LACTATED RINGERS 1,000 ML IV PRN ×2 (09:21→10:53)
[2022-06-01] MEDS ORDERED: metroNIDAZOLE 500MG/100ML IVPB 100 ML ONE (09:22)
[2022-06-01] MEDS ORDERED: ceFAZolin INJECTION 2,000 MG ONE (09:22)
[2022-06-01] MEDS ORDERED: NS (IVPB) 50 ML ONE (09:22)
[2022-06-01] MEDS ORDERED: ROCURONIUM 50 MG/5 ML (ZEMURON) VIAL IV ONE (09:32)
[2022-06-01] MEDS ORDERED: fentaNYL INJ 100 MCG/2 ML AMP ONE (09:32)
[2022-06-01] MEDS ORDERED: proPOfol 200 MG/20 ML (DIPRIVAN) VIAL IV ONE (09:32)
[2022-06-01] MEDS ORDERED: LIDOCAINE PF 2% 5 ML (XYLOCAINE) VIAL ONE (09:32)
[2022-06-01] MEDS ORDERED: MIDAZOLAM 2 MG/2 ML (VERSED) VIAL ONE (09:33)
[2022-06-01] MEDS ORDERED: BUP/EPI 0.5% 1:200,000 (SENSORCAINE) 30 ML VIAL ONE (09:40)
--- NOTE | 2022-06-01 10:10 | Progress Note-Pre Operative ---
Pre-Operative Progress Note Date H&P Reviewed: Jun 01, 2022 Time H&P Reviewed: 10:09 History & Physical: H&P Reviewed, Patient Examed, No changes noted Pre-Operative Diagnosis: cecal mass ROSEANNA LEON DO Jun 01, 2022 10:10
[2022-06-01] MEDS ORDERED: BUP/EPI 0.5% 1:200,000 (SENSORCAINE) 30 ML VIAL INJ ONE (10:55)
[2022-06-01] MEDS ORDERED: GLYCOPYRROLATE 0.2 MG/ML (ROBINUL) 2 ML VIAL ONE (11:46)
[2022-06-01] MEDS ORDERED: NEOSTIGMINE (BLOXIVERZ ) 1 MG/1ML 10 ML VIAL ONE (11:46)
[2022-06-01] MEDS ORDERED: morphine INJ 10 MG/ML 1ML (SYR OR VIAL) IVP ONE (12:00)
[2022-06-01] MEDS ORDERED: fentaNYL INJ 100 MCG/2 ML AMP IVP ONE (12:00)
[2022-06-01] MEDS ORDERED: ONDANSETRON 4 MG/2 ML (SDV) Z0FRAN IVP PRN ×2 (12:00→12:15)
[2022-06-01] MEDS ORDERED: MEPERIDINE (DEMEROL) INJ 50 MG/ML IVP ONE (12:00)
[2022-06-01] MEDS ORDERED: ONDANSETRON 4 MG/2 ML (SDV) Z0FRAN ONE (12:02)
--- NOTE | 2022-06-01 12:16 | Progress Note-Post Operative ---
Post-Operative Progess Note Surgeon (s)/Category Specialist (s) Surgeon ROSEANNA LEON DO Category Specialist: [place] Pre-Operative Diagnosis cecal mass Post-Operative Diagnosis same Procedure & Operative Findings Date of Procedure 06/01/22 Procedure Performed/Findings laparoscopic right colon resection Anesthesia Type general Estimated Blood Loss Estimated blood loss (mL): minimal Specimens/Packing Specimens Removed right colon ROSEANNA LEON DO Jun 01, 2022 12:16
--- NOTE | 2022-06-01 13:08 | Anesthesia-General Post-Op ---
General Patient Condition Mental Status/LOC: Same as Preop Cardiovascular: Satisfactory Nausea/Vomiting: Absent Respiratory: Satisfactory Pain: Controlled Complications: Absent Post Op Complications Complications None Follow Up Care/Instructions Patient Instructions None needed. Anesthesia/Patient Condition Patient Condition Patient is doing well, no complaints, stable vital signs, no apparent adverse anesthesia problems. No complications reported per nursing. ALLAN KUMAR CRNA Jun 01, 2022 13:08
[2022-06-01] MEDS: morphine INJ 4 MG/ML 1 ML (VIAL/SYRINGE) IVP PRN ×2 (14:16→17:55)
[2022-06-01] MEDS: LACTATED RINGERS 1,000 ML IV SCH ×2 (14:16→20:19)
[2022-06-01] MEDS ORDERED: RT-ALBUTEROL SULF 2.5 MG/3 ML PRE-MIX VIAL INH PRN (16:15)
[2022-06-01] MEDS: ceFAZolin INJECTION 2,000 MG in NS (IVPB) 50 ML IV SCH (17:18)
[2022-06-01] MEDS: metroNIDAZOLE 500MG/100ML IVPB 100 ML IV SCH (17:18)
[2022-06-01] MEDS ORDERED: SERTRALINE 100 MG (ZOLOFT) TAB PO SCH (21:00)
[2022-06-02] MEDS: ceFAZolin INJECTION 2,000 MG in NS (IVPB) 50 ML IV SCH (01:30)
[2022-06-02] MEDS: metroNIDAZOLE 500MG/100ML IVPB 100 ML IV SCH (01:34)
[2022-06-02] MEDS: morphine INJ 4 MG/ML 1 ML (VIAL/SYRINGE) IVP PRN (01:37)
[2022-06-02 03:20] VITALS: BP 114/58
[2022-06-02] MEDS: LACTATED RINGERS 1,000 ML IV SCH ×3 (04:44→21:14)
[2022-06-02 05:40] LABS: HEMOGLOBIN 11.7 g/dL (11.5-16.0); WHITE BLOOD COUNT 13.9 10^3/uL (4.3-11.0)
[2022-06-02 05:57] LABS: POTASSIUM 4.2 MMOL/L (3.6-5.0)
[2022-06-02 05:59] LABS: CALCIUM 8.7 MG/DL (8.5-10.1)
[2022-06-02 06:03] LABS: CREATININE SERUM 0.88 MG/DL (0.60-1.30)
[2022-06-02 06:05] LABS: MAGNESIUM 1.9 MG/DL (1.6-2.4)
[2022-06-02] MEDS ORDERED: LEVOTHYROXINE 125 MCG (LEVOTHROID) TABLET PO SCH (06:30)
[2022-06-02 07:34] VITALS: BP 132/63
--- NOTE | 2022-06-02 08:17 | Progress Note - Surgery ---
WILLY BANDA 06/02/22 0817: Subjective Date Seen by a Provider: Jun 02, 2022 Time Seen by a Provider: 08:12 Subjective/Events-last exam Pt states that she is feeling better than yesterday after the procedure. Pt received one dose of morphine about 1:30am this morning and concurrently tolerating pain. Pt has most pain if she tries to turn on her side. Pt is not passing gas or had a bowel movement. Pt states that she has been tossing and turning in bed trying to get comfortable, but other than have hasn't moved much. Pt plans to get up and move to the chair this morning. States she was visited by PT yesterday, but was still loopy from the procedure. Pt denies any other complaints. Review of Systems General: No Chills, No Night Sweats HEENT: No Head Aches, No Eye Pain (States she had eye pain post procedure, but has subsided since yesterday) Pulmonary: No Cough, No Pleuritic Chest Pain Cardiovascular: No: Chest Pain, Palpitations Gastrointestinal: No: Nausea, Vomiting Genitourinary: No Dysuria, No Frequency Musculoskeletal: No: neck pain, leg pain Neurological: No: Weakness, Numbness Objective Exam Vital Signs Date Time Temp Pulse Resp B/P (MAP) Pulse Ox O2 Delivery O2 Flow Rate FiO2 06/02/22 07:34 36.0 76 18 132/63 (86) 93 Nasal Cannula 1.00 06/02/22 03:20 36.7 70 20 114/58 (76) 91 Nasal Cannula 2.00 06/01/22 23:09 36.5 79 20 129/70 (89) 94 Nasal Cannula 2.00 06/01/22 20:04 36.3 88 16 122/59 (80) 93 Nasal Cannula 2.00 06/01/22 19:45 Nasal Cannula 2.00 06/01/22 19:31 93 Nasal Cannula 2.00 06/01/22 16:05 36.5 77 95 06/01/22 15:58 36.5 77 16 135/65 (88) 95 Nasal Cannula 2.00 06/01/22 12:59 36.2 72 18 129/60 (83) 97 Nasal Cannula 2.00 06/01/22 12:50 Nasal Cannula 2.00 06/01/22 12:48 36.0 20 158/84 (108) 95 Nasal Cannula 2.00 06/01/22 12:40 22 172/82 (112) 92 Room Air 06/01/22 12:40 Room Air 06/01/22 12:30 22 174/94 (120) 97 OxyMask 4.00 06/01/22 12:25 OxyMask 4.00 06/01/22 12:20 24 178/73 (108) 96 OxyMask 4.00 06/01/22 12:10 20 169/63 (98) 97 OxyMask 8 06/01/22 12:10 OxyMask 8 06/01/22 12:00 20 152/89 (110) 99 OxyMask 8 06/01/22 11:55 36.6 16 127/91 (103) 98 OxyMask 8 06/01/22 11:55 OxyMask 8 06/01/22 09:17 97 Room Air 06/01/22 09:09 36.3 85 20 151/90 (110) 97 Room Air I & O 06/02/22 07:00 Intake Total 3900 ml Output Total 1775 ml Balance 2125 ml Capillary Refill : General Appearance: No Apparent Distress HEENT: PERRL/EOMI Neck: Full Range of Motion, Non Tender, Supple Respiratory: Chest Non Tender, Lungs Clear, Normal Breath Sounds Cardiovascular: Regular Rate, Rhythm, No Murmur Peripheral Pulses: 2+ Radial Pulses (R), 2+ Radial Pulses (L) Gastrointestinal: soft, abnormal bowel sounds, tenderness (Moderate Tenderness w/ Palpation more midline to RUQ) Extremity: Non Tender, No Calf Tenderness Neurologic/Psychiatric: Alert, Oriented x3, Normal Mood/Affect Skin: Normal Color, Warm/Dry Lymphatic: No Adenopathy Results Lab Laboratory Tests 06/02/22 05:20: White Blood Count 13.9H, Red Blood Count 3.95, Hemoglobin 11.7, Hematocrit 35, Mean Corpuscular Volume 89, Mean Corpuscular Hemoglobin 30, Mean Corpuscular Hemoglobin Concent 33, Red Cell Distribution Width 13.5, Platelet Count 269, Mean Platelet Volume 9.0, Percent Immature Platelet Fraction 1.0, Sodium Level 137, Potassium Level 4.2, Chloride Level 103, Carbon Dioxide Level 22, Anion Gap 12, Blood Urea Nitrogen 13, Creatinine 0.88, Estimat Glomerular Filtration Rate 72, BUN/Creatinine Ratio 15, Glucose Level 122H, Calcium Level 8.7, Magnesium Level 1.9 Assessment/Plan Assessment/Plan Assessment/Plan S/P Right Colon Resection Day One Abdominal Pain Leukocytosis Clear Liquids Incentive Spirometer Ambulate as tolerated Physical therapy DVT PPx: SCD's DENY MARIANO DO 06/02/22 0831: Subjective Subjective/Events-last exam Pain controlled. Using IS. No bowel function. Denies n/v fever sweats chills shortness of breath or chest pain. Objective Exam General Appearance: No Apparent Distress, Obese HEENT: PERRL/EOMI, Normal ENT Inspection Neck: Normal Inspection, Non Tender Respiratory: Chest Non Tender, No Accessory Muscle Use, No Respiratory Distress Cardiovascular: Regular Rate, Rhythm, No JVD Gastrointestinal: soft, tenderness (incisional, incisions c/d/i) Extremity: Non Tender, No Calf Tenderness Neurologic/Psychiatric: Alert, Oriented x3, Normal Mood/Affect Skin: Normal Color, Warm/Dry Lymphatic: No Adenopathy Assessment/Plan Assessment/Plan Assessment/Plan S/P Lap hand assisted Right Colon Resection for cecal mass Abdominal Pain Clear Liquids Incentive Spirometer Ambulate as tolerated Physical therapy DVT PPx: SCD's Start Lovenox DC panchito IS Supervisory-Addendum Brief Verification & Attestation Participated in pt care: history, MDM, physical Personally performed: exam, history, MDM, supervision of care Care discussed with: Medical Student Procedures: n/a Results interpretation: Verified all documentation Verification and Attestation of Medical Student E/M Service A medical student performed and documented this service in my presence. I reviewed and verified all information documented by the medical student and made modifications to such information, when appropriate. I personally performed the physical exam and medical decision making. Deny Mariano, Jun 02, 2022,08:31 WILLY BANDA Jun 02, 2022 08:17 DENY MARIANO DO Jun 02, 2022 08:31
[2022-06-02] MEDS ORDERED: ENOXAPARIN 40 MG/0.4 ML (LOVENOX) SYR SC SCH (08:30)
[2022-06-02] MEDS: amLODIPine 5 MG (NORVASC) TAB PO SCH (09:08)
[2022-06-02] MEDS: SERTRALINE 100 MG (ZOLOFT) TAB PO SCH (09:08)
[2022-06-02] MEDS: ENOXAPARIN 40 MG/0.4 ML (LOVENOX) SYR SC SCH (09:09)
[2022-06-02] MEDS ORDERED: SPIR100T PO (10:00)
--- NOTE | 2022-06-02 10:13 | Physical Therapy Evaluation ---
PT Evaluation-General Medical Diagnosis Admission Date Jun 01, 2022 at 08:46 Medical Diagnosis: cecal mass Onset Date: Jun 01, 2022 Therapy Diagnosis Therapy Diagnosis: debility Height/Weight Height (Feet): 5 Height (Inches): 4.00 Weight (Pounds): 239 Weight (Ounces): 9.0 Precautions Precautions/Isolations: Standard Precautions Referral Physician: García Reason for Referral: Evaluation/Treatment Medical History Pertinent Medical History: Hypothroidism Current History s/p colon resection Reviewed History: Yes Social History Home: Single Level Current Living Status: Spouse Prior Prior Level of Function SCALE: Activities may be completed with or without assistive devices. 9-Gumxnyfhnt-kzlmdhv completes the activity by him/herself with no assistance from a helper. 5-Set-up or Clean-up Assistance-helper sets up or cleans up; patient completes activity. [place] assists only prior to or following the activity. 4-Supervision or Touching Assistance-helper provides verbal cues and/or touching/steadying and/or contact guard assistance as patient completes activity. Assistance may be provided throughout the activity or intermittently. 3-Partial/Moderate Assistance-helper does LESS THAN HALF the effort. [place] lifts, holds or supports trunk or limbs, but provides less than half the effort. 2-Substantial/Maximal Assistance-helper does MORE THAN HALF the effort. [place] lifts or holds trunk or limbs and provides more than half the effort. 1-Skhivmdrg-ctyxhm does ALL the effort. Patient does none of the effort to complete the activity. Or, the assistance of 2 or more helpers is required for the patient to complete the activity. If activity was not attempted, code reason: 7-Patient Refused. 9-Not Applicable-not attempted and the patient did not perform the activity before the current illness, exacerbation or injury. 10-Not Attempted due to Environmental Limitations-(lack of equipment, weather restraints, etc.). 88-Not Attempted due to Medical Conditions or Safety Concerns. Bed Mobility: 6 Transfers (B,C,W/C): 6 Gait: 6 Stairs: 6 Indoor Mobility (Ambulation): Independent Stairs: Independent Prior Devices Use: None PT Evaluation-Current Subjective Patient agrees to PT. Pain Numeric Pain Scale: 5-Moderate Pain Location: Right, Medial, Lower Location Body Site: Abdomen Pain Description: Acute Objective Patient Orientation: Normal For Age Attachments: Boyer Catheter, IV ROM/Strength ROM Lower Extremities bilateral LE WFL Strength Lower Extremities 4/5 grossly bilateral LE all planes Integumentary/Posture Integumentary refer to nursing notes Bladder Incontinence: Boyer Cath Posture WFL Neuromuscular (Tone, Coordination, Reflexes) grossly intact with all Sensory Vision: Functional Hearing: Functional Transfers Sit to Stand (QC): 6 Gait Mode of Locomotion: Walk Anticipated Mode of Locomotion: Walk Walk 10 feet (QC): 6 Walk 50 ft with 2 Turns(QC): 6 Walk 150 ft (QC): 6 Distance: 300' Gait Assistive Device: FWW Comments/Gait Description safe and functional with no deviation/FWW to relieve core pressure due to surgery Balance Sitting Static: Normal Sitting Dynamic: Normal Standing Static: Normal Standing Dynamic: Normal Assessment/Needs Patient is currently at independent OF with all gross motor skills safely and does not require skilled PT intervention at this time. Nursing notified to have patient ambulate in hallway PRN. Rehab Potential: Fair PT Plan Treatment/Plan Treatment Plan: Discontinue PT Treatment Duration: Jun 02, 2022 Frequency: 1 time per week Estimated Hrs Per Day: .25 hour per day Patient and/or Family Agrees t: Yes Time Time In: 920 Time Out: 931 DATE: Jun 02, 2022 Total Billed Treatment Time: 11 Total [facility] CHAU GRE[facility] Jun 02, 2022 10:13
--- NOTE | 2022-06-02 10:29 | Consultation ---
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 Biopsy results showed a benign etiology but due to it's size, resection was recommended. The patient underwent laparoscopic right colon resection by Dr. Mariano yesterday. I am asked to consult for medical management. Allergies and Home Medications Allergies Coded Allergies: prochlorperazine (Verified Allergy, Severe, EFFECTS CENTRAL NERVOUS SYSTEM, JAW LOCKED OPEN, 05/25/22) Sulfa (Sulfonamide Antibiotics) (Verified Allergy, Mild, RASH, 05/25/22) Patient Home Medication List Home Medication List Reviewed: Yes Amlodipine Besylate (Amlodipine Besylate) 5 Mg Tablet, 5 MG PO DAILY, (Reported) Entered as Reported by: DEBORA SCHMITT on 09/03/18 1030 Last Action: Reviewed Levothyroxine Sodium (Levothyroxine Sodium) 125 Mcg Tablet, 125 MCG PO HS, (Reported) Entered as Reported by: DEBORA SCHMITT on 09/03/18 1030 Last Action: Reviewed Sertraline HCl (Sertraline HCl) 100 Mg Tablet, 100 MG PO DAILY, (Reported) Entered as Reported by: YONATHAN MALIK on 10/28/15 1840 Last Action: Reviewed Spironolactone (Aldactone) 100 Mg Tablet, 100 MG PO DAILY, (Reported) Entered as Reported by: HU LOZADA on 06/02/22 1000 Last Action: Reviewed Discontinued Medications Spironolactone (Spironolactone) 25 Mg Tablet, 25 MG PO DAILY, (Reported) Discontinued Reason: Duplicate Order Entered as Reported by: DEBORA SCHMITT on 09/03/18 1030 Last Action: Discontinued Past Tuxcmun-Poopgy-Vosvii Hx Patient Social History Marrital Status: Tobacco Use?: No Use of E-Cig and/or Vaping dev: No Substance use?: No Alcohol Use?: No Pt feels they are or have been: No Immunizations Up To Date First/Initial COVID19 Vaccinat: 2020 Second COVID19 Vaccination Sigifredo: 2020 Tetanus Booster (TDap): Unknown Seasonal Allergies Seasonal Allergies: Yes Current Status status: No status: No Communicates: Verbally Primary Language: Yi Preferred Spoken Language: Yi Is interpretation needed?: No Implanted or Applied Medical D: None Past Medical History Surgeries: Gallbladder Currently Using CPAP: No Currently Using BIPAP: No Hypertension Sexually Transmitted Disease: No HIV/AIDS: No Chronic Diarrhea, Polyps, Gall Bladder Disease Arthritis Hypothyroidsim Loss of Vision: Bilateral Hearing Impairment: Denies Depression Blood Disorders: Yes (HX ANEMIA) Adverse Reaction/Blood Tranf: No (HAS HAD BLOOD WITH NO REACTION) Family Medical History Hypertension 19 FATHER 19 MOTHER G8 BROTHER G8 SISTER No Pertinent Family Hx Review of Systems Review of Systems General: No Chills, No Night Sweats HEENT: No Head Aches, No Eye Pain (States she had eye pain post procedure, but has subsided since yesterday) Pulmonary: No Cough, No Pleuritic Chest Pain Cardiovascular: No: Chest Pain, Palpitations Gastrointestinal: Abdominal Pain; No: Nausea, Vomiting Genitourinary: No Dysuria, No Frequency Musculoskeletal: No: neck pain, leg pain Neurological: No: Weakness, Numbness Physical Exam Vital Signs Vital Signs - First Documented 06/01/22 09:09 Temp 36.3 Pulse 85 Resp 20 B/P (MAP) 151/90 (110) Pulse Ox 97 O2 Delivery Room Air Capillary Refill : Height, Weight, BMI Height: 5'4.00" Weight: 239lbs. 9.0oz. [id number]; 38.79 BMI Method:Stated General Appearance: No Apparent Distress Neck: Supple Respiratory: Lungs Clear Cardiovascular: Regular Rate, Rhythm, Gallop/S4 Gastrointestinal: Non Tender, Soft, Abnormal Bowel Sounds (hypoactive) Rectal: Deferred Back: No CVA Tenderness Extremity: Non Tender, No Calf Tenderness, No Pedal Edema Neurologic/Psychiatric: Alert, Oriented x3 Skin: Warm/Dry Comments Laboratory Tests 06/02/22 05:20: White Blood Count 13.9H, Red Blood Count 3.95, Hemoglobin 11.7, Hematocrit 35, Mean Corpuscular Volume 89, Mean Corpuscular Hemoglobin 30, Mean Corpuscular Hemoglobin Concent 33, Red Cell Distribution Width 13.5, Platelet Count 269, Mean Platelet Volume 9.0, Percent Immature Platelet Fraction 1.0, Sodium Level 137, Potassium Level 4.2, Chloride Level 103, Carbon Dioxide Level 22, Anion Gap 12, Blood Urea Nitrogen 13, Creatinine 0.88, Estimat Glomerular Filtration Rate 72, BUN/Creatinine Ratio 15, Glucose Level 122H, Calcium Level 8.7, Magnesium Level 1.9 Assessment/Plan Assessment/Plan Admission Dx 1. Right Cecal Mass--S/P right colon resection, pain control, up to chair and ambulate, IS and lovenox, flanagan cath out today, on clear liquids, await return of bowel function 2. Hypertension--amlodopine restarted 3. Hypothyroidism--home synthroid dose restarted 4. Depression--sertraline restarted ZHANG KEENE DO Jun 02, 2022 10:29
[2022-06-02] MEDS ORDERED: PANTOPRAZOLE 40 MG (PROTONIX) TAB PO NR (10:30)
[2022-06-02 11:20] VITALS: BP 138/58
[2022-06-02 16:03] VITALS: BP 137/60
--- NOTE | 2022-06-02 16:35 | OPERATIVE REPORT ---
DATE OF SERVICE: 06/01/2022 PREOPERATIVE DIAGNOSIS: Cecal mass. POSTOPERATIVE DIAGNOSIS: Cecal mass. PROCEDURE: Laparoscopic hand-assisted right colon resection. SURGEON: Roseanna Mariano DO BIOLOGY INTERN: Dr. Wallace, assisted in retraction, dissection, and closure. ANESTHESIA: General. ESTIMATED BLOOD LOSS: Minimal. COMPLICATIONS: None. INDICATIONS: The patient is a 66-year-old female with a cecal mass. She understands risks and benefits of procedure and wishes to proceed. Consent was signed in chart. DESCRIPTION OF PROCEDURE: The patient was taken to the operating suite, prepped and draped in sterile fashion. Timeout was performed. A midline incision was made for a hand port placement. Cautery used to dissect down through the subcutaneous tissues. The fascia was then opened and divided. Under visualization, a 12 mm trocar was placed in the subxiphoid region and the abdomen was then insufflated. A 5 mm trocar was placed in the right lower quadrant under direct visualization of laparoscope. The right colon was then mobilized along the white line of Toldt and also along the hepatic flexure, making the colon had a midline structure. This was then brought out through the midline incision. The distal ileum was dissected around and also the colon distal to the mass and WILFRED staplers were then fired across. LigaSure was then used to divide the mesentery and the specimen was removed. A [id number] anastomosis was then created using the WILFRED staplers. This was placed back in the abdomen. The abdomen was then irrigated and suctioned. Hemostasis was achieved. The fascia was then closed using 1-0 looped PDS in a running fashion. The abdomen was then reinsufflated and had normal appearance, no other pathology noted. The abdomen was then desufflated. The trocars were removed. The skin was then closed with rosita. Sterile bandages were applied. The patient tolerated the procedure well without complications, taken to recovery room in stable condition. Job ID: [id number] DocumentID: [id number] Dictated Date: 06/02/2022 10:12:07 Air Conditioning Installer Date: 06/02/2022 16:34:00 Dictated By: ROSEANNA MARIANO DO
[2022-06-02 19:56] VITALS: BP 140/64
[2022-06-02] MEDS ORDERED: ACETAMINOPHEN 500 MG TAB (TYLENOL) PO PRN (20:15)
[2022-06-02] MEDS: LEVOTHYROXINE 125 MCG (LEVOTHROID) TABLET PO SCH (20:38)
[2022-06-02 23:06] VITALS: BP 119/60
[2022-06-03 03:30] VITALS: BP 139/60
[2022-06-03] MEDS: LACTATED RINGERS 1,000 ML IV SCH ×3 (05:48→21:19)
[2022-06-03 06:55] LABS: POTASSIUM 3.7 MMOL/L (3.6-5.0)
[2022-06-03 06:57] LABS: CALCIUM 8.4 MG/DL (8.5-10.1); HEMOGLOBIN 10.1 g/dL (11.5-16.0); MEAN PLATELET VOLUME 9.3 fL (9.0-12.2); WHITE BLOOD COUNT 8.6 10^3/uL (4.3-11.0)
[2022-06-03 07:01] LABS: CREATININE SERUM 0.78 MG/DL (0.60-1.30)
[2022-06-03 07:03] LABS: MAGNESIUM 1.8 MG/DL (1.6-2.4)
--- NOTE | 2022-06-03 07:37 | Progress Note - Surgery ---
KWAME HARRIS 06/03/22 0737: Subjective Date Seen by a Provider: Jun 03, 2022 Time Seen by a Provider: 07:31 Subjective/Events-last exam Patient is sleeping in bed comfortably this morning. She was able to get some good sleep last night and feel "much better." She reports her abdominal pain to be a 1/10 this morning. She has been up ambulating with PT and the nurse yesterday. She was able to get up and use the restroom, denying and BM or flatus since surgery but has been voiding without pain or hematuria. She has been tolerating liquid diet, would like to try soft food if allowed. She is using IS adequately. She denies any N/V/D, chest pain, SOB, fever, or chills. No other complaints at this time. Review of Systems General: No Chills, No Night Sweats HEENT: No Head Aches, No Sore Throat Pulmonary: No Dyspnea, No Cough Cardiovascular: No: Chest Pain, Edema Gastrointestinal: Abdominal Pain; No: Nausea, Vomiting Genitourinary: No Dysuria, No Hematuria Musculoskeletal: No: back pain, leg pain Neurological: No: Weakness, Numbness Objective Exam Vital Signs Date Time Temp Pulse Resp B/P (MAP) Pulse Ox O2 Delivery O2 Flow Rate FiO2 06/03/22 03:30 36.4 81 16 139/60 (86) 92 Nasal Cannula 2.00 06/02/22 23:06 36.0 81 16 119/60 (79) 91 Nasal Cannula 2.00 06/02/22 20:46 Room Air 06/02/22 19:56 37.0 80 20 140/64 (89) 94 Nasal Cannula 2.00 06/02/22 19:19 Room Air 06/02/22 18:18 Room Air 06/02/22 16:03 36.6 72 20 137/60 (85) 90 Room Air 06/02/22 11:20 36.3 68 18 138/58 (84) 92 Room Air 06/02/22 07:34 36.0 76 18 132/63 (86) 93 Nasal Cannula 1.00 I & O 06/03/22 07:00 Intake Total 3470 ml Output Total 2050 ml Balance 1420 ml Capillary Refill : General Appearance: No Apparent Distress, WD/WN, Obese HEENT: PERRL/EOMI, Moist Mucous Membranes Neck: Non Tender, Supple Respiratory: Lungs Clear, No Accessory Muscle Use, No Respiratory Distress Cardiovascular: Regular Rate, Rhythm, No Edema Peripheral Pulses: 2+ Radial Pulses (R), 2+ Radial Pulses (L) Gastrointestinal: soft, tenderness (Tender to palpation along midline incision site. ) Extremity: No Calf Tenderness, No Pedal Edema Neurologic/Psychiatric: Alert, Oriented x3 Skin: Normal Color, Warm/Dry, Other (Incisions clean, dry, and intact. ) Lymphatic: No Adenopathy Results Lab Laboratory Tests 06/03/22 06:16: White Blood Count 8.6, Red Blood Count 3.37L, Hemoglobin 10.1L, Hematocrit 31L, Mean Corpuscular Volume 91, Mean Corpuscular Hemoglobin 30, Mean Corpuscular Hemoglobin Concent 33, Red Cell Distribution Width 14.1, Platelet Count 221, Mean Platelet Volume 9.3, Percent Immature Platelet Fraction 1.0, Sodium Level 138, Potassium Level 3.7, Chloride Level 101, Carbon Dioxide Level 25, Anion Gap 12, Blood Urea Nitrogen 11, Creatinine 0.78, Estimat Glomerular Filtration Rate 83, BUN/Creatinine Ratio 14, Glucose Level 93, Calcium Level 8.4L, Magnesium Level 1.8 Microbiology 06/01/22 MRSA Screen - Final, Complete MRSA not isolated Assessment/Plan Assessment/Plan Assessment/Plan S/P Lap hand assisted Right Colon Resection for cecal mass- POD #2 Abdominal Pain Plan: Continue pain management/IV fluids Tolerating clears, advance as tolerated Encourage ambulation/PT Continue Lovenox IS RYAN WALLACE DO 06/03/22 1351: Subjective Time Seen by a Provider: 12:16 Subjective/Events-last exam Pt seen and examined, states pain is ok and she did have some flatus. She is tolerating clears. Review of Systems General: No Chills, No Night Sweats Pulmonary: No Dyspnea, No Cough Cardiovascular: No: Chest Pain Gastrointestinal: Abdominal Pain; No: Nausea, Vomiting Objective Exam General Appearance: No Apparent Distress, Obese HEENT: PERRL/EOMI, Moist Mucous Membranes Respiratory: Lungs Clear, Normal Breath Sounds, No Accessory Muscle Use, No Respiratory Distress Cardiovascular: Regular Rate, Rhythm, No Murmur Gastrointestinal: soft, tenderness (Tender to palpation along midline incision site. ), other (incisions are C/D/I) Extremity: No Calf Tenderness Neurologic/Psychiatric: Alert, Oriented x3 Assessment/Plan Assessment/Plan Assessment/Plan S/P Lap hand assisted Right Colon Resection for cecal mass- POD #2 Abdominal Pain Plan: Continue pain management/IV fluids Tolerating clears, advance as tolerated Encourage ambulation/PT Continue Lovenox IS Supervisory-Addendum Brief Verification & Attestation Participated in pt care: history, MDM, physical Personally performed: exam, history, MDM, supervision of care Care discussed with: Medical Student Procedures: n/a Verification and Attestation of Medical Student E/M Service A medical student performed and documented this service. I then reviewed and verified all information documented by the medical student and made modifications to such information, when appropriate. I personally performed a physical exam, medical decision making and then discussed any differences between the notes and made revisions as necessary to create one note. Ryan Wallace , 06/03/22 , 13:52 KWAME HARRIS Jun 03, 2022 07:37 RYAN WALLACE DO Jun 03, 2022 13:51
[2022-06-03 07:52] VITALS: BP 138/61
[2022-06-03] MEDS: ENOXAPARIN 40 MG/0.4 ML (LOVENOX) SYR SC SCH (09:26)
[2022-06-03] MEDS: SERTRALINE 100 MG (ZOLOFT) TAB PO SCH (09:27)
[2022-06-03] MEDS: amLODIPine 5 MG (NORVASC) TAB PO SCH (09:27)
[2022-06-03] MEDS: PANTOPRAZOLE 40 MG (PROTONIX) TAB PO SCH (09:27)
[2022-06-03 11:31] VITALS: BP 128/60
--- NOTE | 2022-06-03 11:37 | Progress Note - Hospitalist ---
Subjective HPI/CC On Admission Date Seen by Provider: Jun 03, 2022 Subjective/Events-last exam Patient reports doing well. Pain controlled. Up in chair. No complaints. No BM or flatus yet. Objective Exam Vital Signs Vital Signs Date Time Temp Pulse Resp B/P (MAP) Pulse Ox O2 Delivery O2 Flow Rate FiO2 06/03/22 11:31 37.2 80 20 128/60 (82) 92 Room Air 06/03/22 07:52 2.00 Capillary Refill : General Appearance: No Apparent Distress, WD/WN Respiratory: Lungs Clear, No Accessory Muscle Use, No Respiratory Distress Cardiovascular: Regular Rate, Rhythm Gastrointestinal: Abnormal Bowel Sounds (quiet); No Distended, No Guarding Neurologic/Psychiatric: Alert, Oriented x3 Results/Procedures Lab Laboratory Tests 06/03/22 06:16 Patient resulted labs reviewed. Assessment/Plan Assessment and Plan Assess & Plan/Chief Complaint 1. Right Cecal Mass--S/P right colon resection POD #2, pain control, up to chair and ambulate, PT, IS and lovenox, silvia clear liquids, await return of bowel function 2. Hypertension--amlodopine with good control of BP 3. Hypothyroidism--Continue synthroid dose 4. Depression--sertraline 5. postoperative anemia- Hgb 10.1- trend ANNABELLE ALARCON MD Jun 03, 2022 11:36
[2022-06-03 16:00] VITALS: BP 126/84
[2022-06-03 19:29] VITALS: BP 114/76
[2022-06-03] MEDS: LEVOTHYROXINE 125 MCG (LEVOTHROID) TABLET PO SCH (19:47)
[2022-06-04] VITALS (7 sets, daily range): BP systolic 96–137; BP diastolic 52–75
--- NOTE | 2022-06-04 05:30 | Progress Note - Surgery ---
KWAME HARRIS 06/04/22 0530: Subjective Date Seen by a Provider: Jun 04, 2022 Time Seen by a Provider: 05:25 Subjective/Events-last exam Patient is laying in bed comfortably this morning. She reports she is feeling "well" this morning. She rates her pain at a 1/10, mostly around he incision. S he was able to eat chicken and rice for dinner last night without pain. She denies any flatus or BM since surgery. Was able to ambulate yesterday without problem. She is compliant with her IS. She denies any SOB, chest pain, N/V/D, fever, chills, or dysuria. No other complaints at this time. Review of Systems General: No Chills, No Night Sweats HEENT: No Head Aches, No Sore Throat Pulmonary: No Dyspnea, No Cough Cardiovascular: Edema; No: Chest Pain Gastrointestinal: Abdominal Pain; No: Nausea, Vomiting Genitourinary: No Dysuria, No Hematuria Musculoskeletal: No: back pain, leg pain Neurological: No: Weakness, Numbness Objective Exam Vital Signs Date Time Temp Pulse Resp B/P (MAP) Pulse Ox O2 Delivery O2 Flow Rate FiO2 06/04/22 03:25 36.4 77 18 110/52 (71) 94 Nasal Cannula 06/04/22 00:00 36.9 79 18 137/63 (87) 92 Nasal Cannula 06/03/22 20:11 Room Air 06/03/22 19:29 36.3 82 22 114/76 (89) 91 Room Air 06/03/22 16:00 36.6 76 20 126/84 (98) 93 Room Air 06/03/22 11:31 37.2 80 20 128/60 (82) 92 Room Air 06/03/22 09:00 Room Air 06/03/22 07:52 36.4 72 18 138/61 (86) 95 Nasal Cannula 2.00 I & O 06/04/22 07:00 Intake Total 1062 ml Output Total 1600 ml Balance -538 ml Capillary Refill : General Appearance: No Apparent Distress, Obese HEENT: PERRL/EOMI, Moist Mucous Membranes Neck: Non Tender, Supple Respiratory: Lungs Clear, Normal Breath Sounds, No Accessory Muscle Use, No Respiratory Distress Cardiovascular: Regular Rate, Rhythm, No Murmur Peripheral Pulses: 2+ Radial Pulses (R), 2+ Radial Pulses (L) Gastrointestinal: soft, tenderness (Tender to palpation along midline incision site. 04/18), other (incisions are clean, dry, and intact) Extremity: No Calf Tenderness, Pedal Edema (+1 bilaterally) Neurologic/Psychiatric: Alert, Oriented x3 Skin: Normal Color, Warm/Dry, Other (Incisions clean, dry, and intact. ) Lymphatic: No Adenopathy Results Lab Laboratory Tests 06/03/22 06:16: White Blood Count 8.6, Red Blood Count 3.37L, Hemoglobin 10.1L, Hematocrit 31L, Mean Corpuscular Volume 91, Mean Corpuscular Hemoglobin 30, Mean Corpuscular Hemoglobin Concent 33, Red Cell Distribution Width 14.1, Platelet Count 221, Mean Platelet Volume 9.3, Percent Immature Platelet Fraction 1.0, Sodium Level 138, Potassium Level 3.7, Chloride Level 101, Carbon Dioxide Level 25, Anion Gap 12, Blood Urea Nitrogen 11, Creatinine 0.78, Estimat Glomerular Filtration Rate 83, BUN/Creatinine Ratio 14, Glucose Level 93, Calcium Level 8.4L, Magnesium Level 1.8 Microbiology 06/01/22 MRSA Screen - Final, Complete MRSA not isolated Assessment/Plan Assessment/Plan Assessment/Plan S/P Lap hand assisted Right Colon Resection for cecal mass- POD #3 Abdominal Pain Plan: Continue pain management/IV fluids Tolerating soft diet Encourage ambulation/PT Continue Lovenox IS RYAN WALLACE DO 06/04/22 1305: Subjective Time Seen by a Provider: 12:49 Subjective/Events-last exam Pt seen and examined, states she is doing great today. She had BM (multiple) and is not really having any pain. Review of Systems General: No Chills, No Night Sweats Pulmonary: No Dyspnea, No Cough Cardiovascular: No: Chest Pain Gastrointestinal: No: Nausea, Vomiting, Abdominal Pain Objective Exam General Appearance: No Apparent Distress, Obese HEENT: PERRL/EOMI, Moist Mucous Membranes Respiratory: Lungs Clear, Normal Breath Sounds, No Accessory Muscle Use, No Respiratory Distress Cardiovascular: Regular Rate, Rhythm, No Murmur Gastrointestinal: soft; No distended; tenderness (Tender to palpation along midline incision site. 04/18), other (incisions are clean, dry, and intact) Assessment/Plan Assessment/Plan Assessment/Plan S/P Lap hand assisted Right Colon Resection for cecal mass- POD #3 DVT prophylaxis Plan: Continue pain meds as needed will heplock IV fluids Increase diet to regular Encourage ambulation/PT Continue Lovenox IS Supervisory-Addendum Brief Verification & Attestation Participated in pt care: history, MDM, physical Personally performed: exam, history, MDM, supervision of care Care discussed with: Medical Student Procedures: n/a Verification and Attestation of Medical Student E/M Service A medical student performed and documented this service. I then reviewed and verified all information documented by the medical student and made modifications to such information, when appropriate. I personally performed a physical exam, medical decision making and then discussed any differences between the notes and made revisions as necessary to create one note. Ryan Wallace , 06/04/22 , 13:05 KWAME HARRIS Jun 04, 2022 05:30 RYAN WALLACE DO Jun 04, 2022 13:05
[2022-06-04] MEDS: LACTATED RINGERS 1,000 ML IV SCH ×2 (05:39→13:00)
[2022-06-04] MEDS: amLODIPine 5 MG (NORVASC) TAB PO SCH (08:12)
[2022-06-04] MEDS: PANTOPRAZOLE 40 MG (PROTONIX) TAB PO SCH (08:12)
[2022-06-04] MEDS: ENOXAPARIN 40 MG/0.4 ML (LOVENOX) SYR SC SCH (08:12)
[2022-06-04] MEDS: SERTRALINE 100 MG (ZOLOFT) TAB PO SCH (08:12)
--- NOTE | 2022-06-04 13:19 | Progress Note - Hospitalist ---
Subjective HPI/CC On Admission Date Seen by Provider: Jun 04, 2022 Subjective/Events-last exam Pt reports doing well. Eating lunch. Had a BM. No pain. No complaints. Objective Exam Vital Signs Vital Signs Date Time Temp Pulse Resp B/P (MAP) Pulse Ox O2 Delivery O2 Flow Rate FiO2 06/04/22 11:35 37.0 74 18 120/75 (90) 91 Room Air 06/03/22 07:52 2.00 Capillary Refill : General Appearance: No Apparent Distress, Obese Respiratory: Lungs Clear Cardiovascular: Regular Rate, Rhythm Neurologic/Psychiatric: Alert, Oriented x3 Results/Procedures Lab Patient resulted labs reviewed. Assessment/Plan Assessment and Plan Assess & Plan/Chief Complaint 1. Right Cecal Mass--S/P right colon resection POD #3, pain controlled, up to chair and ambulate, PT, IS and lovenox, had BM and diet advanced, hoping to DC home tomorrow if still doing well 2. Hypertension--amlodopine with good control of BP 3. Hypothyroidism--Continue synthroid dose 4. Depression--sertraline 5. postoperative anemia- Hgb 10.1 ANNABELLE ALARCON MD Jun 04, 2022 13:19
[2022-06-04] MEDS: LEVOTHYROXINE 125 MCG (LEVOTHROID) TABLET PO SCH (20:56)
[2022-06-05 03:40] VITALS: BP 118/58
--- NOTE | 2022-06-05 07:45 | Progress Note - Surgery ---
SOLOWILLY 06/05/22 0745: Subjective Date Seen by a Provider: Jun 05, 2022 Time Seen by a Provider: 07:39 Subjective/Events-last exam Pt is doing well and tolerating diet. Pt states that she had her first two bowel movements yesterday since having surgery. Pt also claims that she is passing gas. Pt states over the weekend while being taken care of by director of conservation physician that she was resting. Pt denies fever, chills, chest pain, palpitations, sob, cough, abdominal pain, and N/V/D. Review of Systems General: No Chills, No Fatigue; Appetite, Other HEENT: No Head Aches Pulmonary: No Dyspnea, No Cough Cardiovascular: No: Chest Pain, Palpitations Gastrointestinal: No: Nausea, Vomiting, Abdominal Pain, Diarrhea Genitourinary: No Dysuria, No Frequency Neurological: No: Weakness, Numbness Objective Exam Vital Signs Date Time Temp Pulse Resp B/P (MAP) Pulse Ox O2 Delivery O2 Flow Rate FiO2 06/05/22 03:40 36.6 79 16 118/58 (78) 93 Nasal Cannula 2.00 06/04/22 23:02 37.4 78 18 103/69 (80) 94 Nasal Cannula 2.00 06/04/22 20:00 Room Air 06/04/22 19:18 36.8 83 18 96/60 (72) 90 Room Air 06/04/22 15:43 36.6 82 18 122/57 (78) 90 Room Air 06/04/22 11:35 37.0 74 18 120/75 (90) 91 Room Air 06/04/22 08:18 Room Air 06/04/22 07:55 36.8 73 16 132/63 (86) 92 Room Air I & O 06/05/22 07:00 Intake Total 1340 ml Output Total 700 ml Balance 640 ml Capillary Refill : General Appearance: No Apparent Distress, Obese HEENT: PERRL/EOMI, Moist Mucous Membranes Neck: Non Tender, Supple Respiratory: Chest Non Tender, Lungs Clear, Normal Breath Sounds Cardiovascular: Regular Rate, Rhythm, No Murmur Peripheral Pulses: 2+ Radial Pulses (R), 2+ Radial Pulses (L) Gastrointestinal: normal bowel sounds, non tender, soft; No distended; other (incisions are clean, dry, and intact) Extremity: No Calf Tenderness Neurologic/Psychiatric: Alert, Oriented x3 Skin: Normal Color, Warm/Dry, Other (Incisions clean, dry, and intact. ) Lymphatic: No Adenopathy Results Lab Microbiology 06/01/22 MRSA Screen - Final, Complete MRSA not isolated Assessment/Plan Assessment/Plan Assessment/Plan S/P Lap hand assisted Right Colon Resection for cecal mass- POD #4 DVT prophylaxis Continue pain meds as needed Regular Encourage ambulation/PT Continue Lovenox IS Pt has had bowel movement and is passing gas. Pt is tolerating pain and diet. From surgical standpoint pt is ready for discharge. DENY MARIANO DO 06/05/22 1438: Subjective Subjective/Events-last exam Doing well. Having bowel function. Tolerating diet. Pain contrlled. Denies n/v fever sweats chills shortness of breath or chest pain. Objective Exam General Appearance: No Apparent Distress, Obese HEENT: PERRL/EOMI, Normal ENT Inspection Neck: Non Tender, Supple Respiratory: Chest Non Tender, No Accessory Muscle Use, No Respiratory Distress Cardiovascular: Regular Rate, Rhythm, No JVD Gastrointestinal: non tender, soft; No distended; other (incisions are clean, dry, and intact) Extremity: Non Tender, No Calf Tenderness Neurologic/Psychiatric: Alert, Oriented x3 Skin: Normal Color, Warm/Dry Lymphatic: No Adenopathy Assessment/Plan Assessment/Plan Assessment/Plan S/P Lap hand assisted Right Colon Resection for cecal mass Continue pain meds as needed Regular diet ambulate and use IS at home plan dc home today. Supervisory-Addendum Brief Verification & Attestation Participated in pt care: history, MDM, physical Personally performed: exam, history, MDM, supervision of care Care discussed with: Medical Student Procedures: n/a Results interpretation: Verified all documentation Verification and Attestation of Medical Student E/M Service A medical student performed and documented this service in my presence. I reviewed and verified all information documented by the medical student and made modifications to such information, when appropriate. I personally performed the physical exam and medical decision making. Deny Mariano, Jun 05, 2022,14:37 WLILY BANDA Jun 05, 2022 07:45 DENY MARIANO DO Jun 05, 2022 14:38
[2022-06-05 08:04] VITALS: BP 139/74
[2022-06-05] MEDS: ENOXAPARIN 40 MG/0.4 ML (LOVENOX) SYR SC SCH (08:36)
[2022-06-05] MEDS: amLODIPine 5 MG (NORVASC) TAB PO SCH (08:36)
[2022-06-05] MEDS: SERTRALINE 100 MG (ZOLOFT) TAB PO SCH (08:36)
[2022-06-05] MEDS: PANTOPRAZOLE 40 MG (PROTONIX) TAB PO SCH (08:36)
[2022-06-05 11:57] VITALS: BP 111/69
[2022-06-05] MEDS ORDERED: CATHETER FLUSH 10 ML SYR IV PRN (13:15)
[2022-06-05] MEDS ORDERED: CATHETER FLUSH 10 ML SYR IV SCH (14:00)
[2022-06-05 14:15] VITALS: BP 111/69
[2022-06-05] MEDS ORDERED: DOCU-143 PO (14:34)
[2022-06-05] MEDS ORDERED: ACHD5005 PO (14:34)
--- NOTE | 2022-06-05 14:35 | Discharge Inst-Simple/Standard ---
Discharge Inst-Standard Discharge Medications New, Converted or Re-Newed RX: Transmitted to Pharmacy Patient Instructions/Follow Up Plan of Care/Instructions/FU: 2 weeks jeanie Activity as Tolerated: No Discharge Diet: Regular Diet Other Inst to Patient Follow up Appt: Make appointment for 2 week. Instructions: No lifting greater than 10 pounds. No strenuous activity. May shower in 24 hours, no tub bath or soaking. Use incentive spirometer at home as directed. No Smoking Skin/Wound Care: You have rosita that will be removed at follow up appointment, keep area clean and dry. Symptoms to Report: Appetite Changes, Extremity Discoloration, Numbness/Tingling, Swelling Increased, Bleeding Excessive, Eyesight Changes, Pain Increased, Urine Color Change, Constipation(Persistent), Fever over 101 degree F, Pain/Pressure in chest, Urinating Difficulty, Cough Up/Vomit Blood, Heart Beat Irreg/Pounding, Pain/Pressure in jaw, Vaginal Bleeding Increase, Cramps in feet or legs, Lightheadedness, Pain/Pressure in shoulder, Diarrhea(Persistent), Memory Changes Suddenly, Questions/Concerns, Weight gain consecutive days, Dizziness/Fainting, Nausea/Vomiting, Shortness of Breath, Weight gain over 2 pounds If questions or concerns contact your physician Or seek help at emergency department. ROSEANNA LEON DO Jun 05, 2022 14:35
--- NOTE | 2022-06-05 18:18 | Progress Note ---
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 On regular diet. Passing stools. Pain well controlled. Objective Exam Vital Signs Date Time Temp Pulse Resp B/P (MAP) Pulse Ox O2 Delivery O2 Flow Rate FiO2 06/05/22 14:15 36.8 75 91 21 06/05/22 11:57 36.8 79 19 111/69 (83) 92 Room Air 06/05/22 08:04 37.1 76 18 139/74 (95) 90 Room Air 06/05/22 08:00 Room Air 06/05/22 07:35 91 Room Air 0.00 06/05/22 03:40 36.6 79 16 118/58 (78) 93 Nasal Cannula 2.00 06/04/22 23:02 37.4 78 18 103/69 (80) 94 Nasal Cannula 2.00 06/04/22 20:00 Room Air 06/04/22 19:18 36.8 83 18 96/60 (72) 90 Room Air I & O 06/05/22 07:00 Intake Total 1340 ml Output Total 700 ml Balance 640 ml Capillary Refill : General Appearance: No Apparent Distress Respiratory: Lungs Clear Cardiovascular: Regular Rate, Rhythm Gastrointestinal: normal bowel sounds, non tender, soft, other (rosita in place with no erythema and no oozing) Extremity: Non Tender, No Calf Tenderness Neurologic/Psychiatric: Alert, Oriented x3 Results Lab Microbiology 06/01/22 MRSA Screen - Final, Complete MRSA not isolated Assessment/Plan Assessment/Plan Assess & Plan/Chief Complaint 1. Right Cecal Mass--S/P right colon resection, home today per surgery 2. Hypertension--stable 3. Hypothyroidism--stable, back on home dose 4. GERD--stable on pantoprazole Clinical Quality Measures Admission Status Admission Dx 1. Right Cecal Mass--S/P right colon resection, pain control, up to chair and ambulate, IS and lovenox, flanagan cath out today, on clear liquids, await return of bowel function 2. Hypertension--amlodopine restarted 3. Hypothyroidism--home synthroid dose restarted 4. Depression--sertraline restarted ZHANG KEENE DO Jun 05, 2022 18:18
== END 2022-06-05 15:00 | disposition home or self-care (01) | DRG 331 ==
LOC: 4TH 08:46 → SURG 08:47 → 4TH 12:55
PROVIDERS: ADMIT Surgery; ATTEND Surgery
PROC: 0DTF4ZZ Resection of Right Large Intestine, Percutaneous Endoscopic Approach (ICD-10-PCS; principal; 2022-06-01 10:08)
DX: D12.0 Benign neoplasm of cecum (principal); D64.9 Anemia, unspecified; K21.9 Gastro-esophageal reflux disease without esophagitis; F32.A Depression, unspecified; E03.9 Hypothyroidism, unspecified; I10 Essential (primary) hypertension; H54.3 Unqualified visual loss, both eyes; M19.91 Primary osteoarthritis, unspecified site; Z88.2 Allergy status to sulfonamides; Z88.8 Allergy status to other drugs, medicaments and biological substances; E66.01 Morbid (severe) obesity due to excess calories; Z68.38 Body mass index [BMI] 38.0-38.9, adult; Z82.49 Family history of ischemic heart disease and other diseases of the circulatory system
CPT/HCPCS: 36415; 80048; 83735; 85027; 87081; 94664; 94760

== ENCOUNTER → 2022-07-13 | Outpatient (CLI) | payer MEDICARE, OTHER ==
[~2022-07-13] MED LIST changes: +DOCU-143 PO; +SPIR100T PO
--- NOTE | 2022-07-13 16:37 | Diagnostic Imaging Report ---
INDICATION: LT ANKLE PAIN COMPARISON: None. FINDINGS: 3 views of the left ankle were obtained. There is no acute fracture or dislocation. No focal osseous lesions are seen. The surrounding soft tissue structures are unremarkable. There are no radiopaque foreign bodies. IMPRESSION: 1. No acute fracture or dislocation in the left ankle. Dictated by: Dictated on workstation # [id number]
== END ==
LOC: RAD 14:24
PROVIDERS: ATTEND Family Medicine
DX: M25.572 Pain in left ankle and joints of left foot (principal)
CPT/HCPCS: 73610

== ENCOUNTER → 2022-12-25 | Outpatient (CLI) | payer MEDICARE, OTHER ==
--- NOTE | 2022-12-25 15:34 | Diagnostic Imaging Report ---
PROCEDURE: US Hepatic (Liver). TECHNIQUE: Multiple real-time grayscale images were obtained over the right upper quadrant in various projections. INDICATION: Elevated liver enzymes. The liver measures 13.3 cm. Portal vein is patent and shows normal direction of flow. No liver mass is identified. The gallbladder is surgically absent. No biliary ductal dilatation is seen. Pancreas is unremarkable. Aorta is nonaneurysmal. IVC is patent. Right kidney is without calculi or hydronephrosis. There is no ascites. IMPRESSION: Status post cholecystectomy. This study is otherwise unremarkable. Dictated by: Dictated on workstation # [id number]
== END ==
LOC: RAD 07:35
PROVIDERS: ATTEND Family Medicine
DX: R74.8 Abnormal levels of other serum enzymes (principal); Z90.49 Acquired absence of other specified parts of digestive tract
CPT/HCPCS: 76705